=== PATIENT | male | born 1940 | race Caucasian/White ===

== ENCOUNTER 2017-06-19 19:07 | Emergency (ER) | payer MEDICARE ==
[~2017-06-19] VITALS: Ht 182.9 cm; Wt 90.7 kg
--- OUTSIDE RECORDS SUMMARY | ~2017-06-19 | XMS | Clinical Summary ---
Demographics + + + | Address | [address] | | | [place] [address] | + + + | Home Phone | | + + + | Preferred Language | Unknown | + + + | Marital Status | | + + + | Jehovah'S Witness Affiliation | Unknown | + + + | Race | White | + + + | Ethnic Group | Not or | + + + Author + + + | Organization | Unknown | + + + | Address | Unknown | + + + | Phone | Unavailable | + + + Support +------+ +---------+ + | Name | Relationship | Address | Phone | +------+ +---------+ + ECON | Unknown | | +------+ +---------+ + Care Team Providers + +------+ + | Care District Customs Director Name | Role | Phone | + +------+ + PP | Unavailable | + +------+ + Source Comments [facility] is fully live on both EpicCare Ambulatory and EpicCare InPatient.[facility] Allergies [...] | + + + + + | INFLUENZA VACCINE | | | | | (FLU SHOT) | 7 | | | + + + + + Results Not on filefrom Last 3 Months"
--- OUTSIDE RECORDS SUMMARY | ~2017-06-19 | XMS | Clinical Summary ---
Demographics + + + | Address | [address] | | | [place] [address] | + + + | Home Phone | | + + + | Preferred Language | Unknown | + + + | Marital Status | | + + + | Spiritism Affiliation | Unknown | + + + [...] Team Providers + +------+ + | Care Salesperson Furs Name | Role | Phone | + +------+ + PP | Unavailable | + +------+ + Source Comments [facility] is fully live on both EpicCare Ambulatory and EpicCare InPatient.[facility] Allergies Not on File Current Medications + [...]
[~2017-06-19 19:07] MED LIST: ALPRAZOLAM0.5 MG PO; AMBIEN CR12.5 MG PO; CVS FISH OIL 11 EAC1 PO; DULERA 100 MCG/13 GM INH; FEOSOL PO; MEN'S MULTI-VI1 EACH PO; NAPROSYN500 MG PO; PAROXETINE HCL20 MG PO; PERCOCET 5-3251 EACH PO; PRAMIPEXOLE D0.25 MG PO; RHINOCORT AQUA8.6 GM INH; TRAMADOL HCL50 MG PO; VITAMIN D2000 UNIT PO; ZYRTEC10 M3 PO
[2017-06-19] MEDS ORDERED: BUPROPION HCL100 MG NG (19:19)
[2017-06-19] MEDS ORDERED: MONTELUKAST SOD10 MG PO (19:20)
[2017-06-19] MEDS ORDERED: OMEPRAZOLE20 MG PO (19:20)
[2017-06-19] MEDS ORDERED: VITAMIN E1000 UNI2 PO (19:22)
[2017-06-19] MEDS ORDERED: CENTRUM SILVER1 EAC3 PO (19:22)
[2017-06-19] MEDS ORDERED: GUAIFENESIN AC473 ML PO (20:00)
[2017-06-19] MEDS ORDERED: LEVAQUIN500 MG PO (20:00)
[2017-06-19] MEDS ORDERED: PREDNISONE10 MG PO (20:00)
== END 2017-06-19 20:04 | disposition home or self-care (01) ==
LOC: ED 19:07
DX: J44.0 Chronic obstructive pulmonary disease with (acute) lower respiratory infection (principal); J20.9 Acute bronchitis, unspecified; Z79.899 Other long term (current) drug therapy
CPT/HCPCS: 71046; 99283

== ENCOUNTER 2018-02-03 20:36 | Inpatient (IN) | payer MEDICARE ==
[~2018-02-03] VITALS: Ht 182.9 cm; Wt 87.5 kg
--- OUTSIDE RECORDS SUMMARY | ~2018-02-03 | XMS | Encounter Summary ---
Demographics + + + | Address | [address] | | | [place] [address] | + + + | Home Phone | | + + + | Preferred Language | Unknown | + + + | Marital Status | | + + + | Gnosticism Affiliation | 1001 | + + + | Race | Unknown | + + + | Ethnic Group | Unknown | + + + Author + + + | Author | [facility] | | | and [place] | + + + | Organization | [facility] | | | and [place] | + + + | Address | Unknown | + + + | Phone | Unavailable | + + + Support + + + + + | Name | Relationship | Address | Phone | + + + + + | Nunu Meléndez | ECON | [address] | | | [place] | | [place] | | | | | [address] | | + + + + + | Iain Meléndez | ECON | [address] | | | | | [place] | | | | | [address] | | + + + + + Care Team Providers + +------+ + | Care Events Traffic Controller Name | Role | Phone | + +------+ + | Lucien Alonso MD | PCP | Unavailable | + +------+ + Encounter Details +--------+ + + + + | Date | Type | Department | Care Team | Description | +--------+ + + + + | 12/22/ | Orders Only | [facility] | Rick Guan, | Prostate cancer | | 2018 | | [address] | MD [address], | ([facility]) (Primary Dx) | | | | [address] [place] | [address] [place] | | | | | [place] [address] | [place] [address] | | | | | [phone] | [phone] | | | | | | | [...] + + + as of this encounter Functional Status + + + + | Functional Status | Response | Date of Assessment | + + + + | Are you deaf or do you have serious | No | 08/04/2014 | | difficulty hearing? | | | + + + + | Are you blind or do you have serious | No | 08/04/2014 | | difficulty seeing, even when wearing | | | | glasses? | | | + + + + | Do you have serious difficulty walking or | Yes | 08/04/2014 | | climbing stairs? (5 years old or older) | | | + + + + | Do you have difficulty dressing or bathing? | Yes | 08/04/2014 | | (5 years old or older) | | | + + + + | Because of a physical, mental, or emotional | No | 08/04/2014 | | condition, do you have difficulty doing | | | | errands alone such as visiting a doctor's | | | | office or shopping? [15 years old or | | | | older)] | | | + + + + + + + + | Cognitive Status | Response | Date of Assessment | + + + + | Because of a physical, mental, or emotional | No | 08/04/2014 | | condition, do you have serious difficulty | | | | concentrating, remembering, or making | | | | decisions? (5 years old or older) | | | + + + + as of this encounter Plan of Treatment +--------+---------+ + + + | Date | Type | Specialty | Care Team | Description | +--------+---------+ + + + | 12/21/ | Office | Urology | Rick Guan, | | | 2018 | Visit | | [address] , | | | | | | [place] | | | | | | [place] [address] | | | | | | [phone] | | | | | | | | +--------+---------+ + + + + +--------+ + + | Name | Priori | Associated Diagnoses | Order Schedule | | | ty | | | + +--------+ + + | PSA, Diagnostic | Routin | Prostate cancer | Expected: 12/07/2018 | | | e | (HCC) | (Approximate), | | | | | Expires: 03/03/2019 | + +--------+ + + | Comprehensive Metabolic Panel | Routin | Prostate cancer | Expected: 12/07/2018 | | | e | (HCC) | (Approximate), | | | | | Expires: 03/03/2019 | + +--------+ + + as of this encounter Visit Diagnoses + + | Diagnosis | + + | Prostate cancer (HCC) - Primary | + + | Malignant neoplasm of prostate | + +"
--- OUTSIDE RECORDS SUMMARY | ~2018-02-03 | XMS | Encounter Summary ---
Demographics + + + | Address | [address] | | | [place] [address] | + + + | Home Phone | | + + + | Preferred Language | Unknown | + + + | Marital Status | | + + + | Bahai Affiliation | 1001 | + + + | Race | Unknown | + + + | Ethnic Group | Unknown | + + + Author + + + | Author | [facility] | | | and [place] | + + + | Organization | [facility] | | | and [place] | + + + | Address | Unknown | + + + | Phone | Unavailable | + + + Support + + + + + | Name | Relationship | Address | Phone | + + + + + | Nunu Meléndez | ECON | [address] | | | K | | [place] | | | | | [address] | | + + + + + | Iain Meléndez | ECON | [address] | | | | | [place] | | | | | [address] | | + + + + + Care Team Providers + +------+ + | Care Pr Internship Name | Role | Phone | + [...] [place] | | | | | [place] [address] | [place] [address] | | | | | [phone] | [phone] | | | | | | | [...] , | | | | | | [address] [place] | | | | | | [place] [address] | | | | | | [phone] | | | | | | | [...] | + + | [facility] | + + + +---------+ + + [...]
--- OUTSIDE RECORDS SUMMARY | ~2018-02-03 | XMS | Encounter Summary ---
Demographics + + + | Address | [address] | | | [place] [address] | + + + | Home Phone | | + + + | Preferred Language | Unknown | + + + | Marital Status | | + + + | Mormonism Affiliation | 1001 | + + + | Race | Unknown | + + + | Ethnic Group | Unknown | + + + Author + + + | Author | [facility] | | | and [place] | + + + | Organization | [facility] | | | and [place] | + + + | Address | Unknown | + + + | Phone | Unavailable | + + + Support + + + + + | Name | Relationship | Address | Phone | + + + + + | Nunu Meléndez | ECON | [address] | | | [place] | | [place] | | | | | [address] | | + + + + + | Iain Meléndez | ECON | [address] | | | | | [place] | | | | | [address] | | + + + + + Care Team Providers + +------+ + | Care Message Broker Developer Name | Role | Phone | + [...] + + | 12/14/ | Office | [facility] | Rick Guan, | Prostate cancer | | 2018 | Visit | [address] | MD [address] [facility], | ([facility]) (Primary Dx); | | | | [address] [place] | [address] [place] | Stress incontinence; | | | | [place] [address] | [place] [address] | 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 If surgery is an option, youranmed health cannon providercan discuss it with you and explain its risks and benefits. Healing after prostate surgery Surgery on the prostate gland can cause incontinence. Most often, the incontinence is only for a short time. It clears up when healing is complete. Rarely, prostate surgery can result in permanent incontinence. Date Last Reviewed: 05/04/201619998143-[address] [employer] [place] [address]. All righ ts reserved. This information is [...] help prevent urine leakage. Date Last Reviewed: 02/01/201719990467-0420 [employer]. [address] [place] [address], [place] [address]. All righ ts reserved. This information is not intended as a substitute for professional medical care. Always follow your healthcare professional's instructions. in this encounter Progress Notes Rick Guan MD - 12/14/2017 1100 PDTFormatting of this note may be different from the original. Neil is a 77 y.o. male patient of Lucien Alonso MD being seen today for a [...] very well. His granddaughter was recently in [place]. He denies any difficulties with voiding except [...] active cystitis. - Negative for urothelial malignancy. JVR:[facility]:C2NR CT UROGRAM W WO CONTRAST 08/19/2017 11:16 [...] have not thoroughly proofread this note, and legal research analyst errors are likely to occur. CC: Lucien Alonso MD in this encounter Plan of Treatment +--------+---------+ + + + | Date | Type | Specialty | Care Team | Description | +--------+---------+ + + + | 12/21/ | Office | Urology | Rick Guan, | | | 2018 | Visit | | [address] [facility], | | | | | | [address] | | | | | | [place] [address] | | | | | | [phone] | | | | | | | [...] | + + + + + | [facility] | [address] | [place] | [phone] | | [facility] | | [address] | | | - LABORATORY | | | | + + + + + | [facility] | [address] | [place] | | | [facility] | | [address] | | | - LABORATORY | | [...] + + + + + | Specific [place], | 1.010 | 1.001 - 1.030 | [...]
--- OUTSIDE RECORDS SUMMARY | ~2018-02-03 | XMS | Clinical Summary ---
Demographics + + + | Address | [address] | | | [place] [address] | + + + | Home Phone | | + + + | Preferred Language | Unknown | + + + | Marital Status | | + + + | [employer] Affiliation | 1001 | + + + | Race | Unknown | + + + | Ethnic Group | Unknown | + + + Author + + + | Author | [facility] | | | and [place] | + + + | Organization | [facility] | | | and [place] | + + + | Address | Unknown | + + + | Phone | Unavailable | + + + Support + + + + + | Name | Relationship | Address | Phone | + + + + + | Nunu Solano | ECON | [address] | | | K | | [place] | | | | | [address] | | + + + + + | Iain Solano | ECON | [address] | | | | | [place] | | | | | [address] | | + + + + + Care Team Providers + +------+ + | Care Authorization Representative Name | Role | Phone | + +------+ + | Lucien Alonso MD | PP | Unavailable | + +------+ + Allergies + + + + + + | Active Allergy | Reactions | Severity | Noted | Comments | | | | | Date | | + + + + + + | Trazodone | Anxiety | Low | 05/30/19 | Urinary | | | | | 17 | incontinence | + + + + + + Current Medications + + +---------+---------+------+------+-------+ | Prescription | Sig. | Disp. | Refills | Star | End | Statu | | | | | | t | Date | s | | | | | | Date | | | + + +---------+---------+------+------+-------+ | pramipexole | Take 0.125 mg by | | 0 | /3 | | Activ | | (MIRAPEX) 0.25 mg | mouth 3 times daily | | | 0/20 | | e | | tablet | as needed. | | | 15 | | | + + +---------+---------+------+------+-------+ | zolpidem (AMBIEN) | Take 1 tablet by | 15 | 0 | 04/0 | | Activ | | 10 mg tablet | mouth nightly as | tablet | | 3/20 | | e | | | needed. | | | 15 | | | + + +---------+---------+------+------+-------+ | paroxetine (PAXIL) | Take 30 mg by mouth | | 0 | 03/3 | | Activ | | 30 MG tablet | every morning. | | | 0/20 | | e | | | | | | 15 | | | + + +---------+---------+------+------+-------+ | traMADol (ULTRAM) | Take 50 mg by mouth | | | | | Activ | | 50 mg tablet | every 6 hours as | | | | | e | | | needed for Pain. | | | | | | + + +---------+---------+------+------+-------+ | ALPRAZolam (XANAX) | Take 0.25 mg by | | 0 | 07/2 | | Activ | | 0.25 mg tablet | mouth nightly as | | | 1/20 | | e | | | needed. | | | 16 | | | + + +---------+---------+------+------+-------+ | Triamcinolone | 1 spray by Nasal | | | | | Activ | | Acetonide (NASACORT | route Daily. | | | | | e | | ALLERGY 24HR NA) | | | | | | | + + +---------+---------+------+------+-------+ | SSD 1 % cream | apply topically | | 0 | 01/1 | | Activ | | | daily as directed | | | 2/20 | | e | | | | | | 17 | | | + + +---------+---------+------+------+-------+ | omeprazole | take 1 capsule by | | 0 | 01/1 | | Activ | | (PRILOSEC) 20 mg | mouth once daily | | | 2/20 | | e | | capsule | | | | 17 | | | + + +---------+---------+------+------+-------+ | montelukast | take 1 tablet by | | 0 | 01/1 | | Activ | | (SINGULAIR) 10 mg | mouth once daily | | | 220 | | e | | tablet | | | | 17 | | | + + +---------+---------+------+------+-------+ | budesonide | 1 spray by Nasal | | | | | Activ | | (RHINOCORT ALLERGY) | route Daily. | | | | | e | | 32 mcg/nasal spray | | | | | | | | nasal spray | | | | | | | + + +---------+---------+------+------+-------+ | | Take 2 tablets by | | | | | Activ | | diphenhydrAMINE-acet | mouth nightly as | | | | | e | | aminophen (TYLENOL | needed. | | | | | | | PM EXTRA STRENGTH) | | | | | | | | 25-500 MG TABS | | | | | | | + + +---------+---------+------+------+-------+ | amoxicillin | take 4 capsules by | | 0 | 01/1 | | Activ | | (AMOXIL) 500 MG | mouth 1 hour prior | | | 11/20 | | e | | capsule | to dental | | | 17 | | | | | appointment | | | | | | + + +---------+---------+------+------+-------+ | buPROPion | Take 100 mg by mouth | | 0 | 02/0 | | Activ | | (WELLBUTRIN) 100 mg | 2 times daily. | | | 07/21 | | e | | tablet | | | | 17 | | | + + +---------+---------+------+------+-------+ | | Inhale 2 puffs into | 1 | 3 | 09/2 | | Activ | | mometasone-formotero | the lungs Twice | Inhaler | | 09/20 | | e | | l (DULERA) 200-5 | Daily. | | | 17 | | | | mcg/puff inhaler | | | | | | | + + +---------+---------+------+------+-------+ | | Take by mouth as | | | | | Activ | | Loratadine-Pseudoeph | needed. | | | | | e | | edrine (PX ALLERGY | | | | | | | | RELIEF D, LORATID, | | | | | | | | PO) | | | | | | | + + +---------+---------+------+------+-------+ | Xylitol POWD | by Does not apply | | | | | Activ | | | route. For sinus | | | | | e | | | problems | | | | | | + + +---------+---------+------+------+-------+ | predniSONE | Take 2 tablets by | 50 | 1 | 03/2 | | Activ | | (DELTASONE) 10 mg | mouth 2 times daily. | tablet | | 8/20 | | e | | tablet | Take 20 mg twice | | | 18 | | | | | daily for five days, | | | | | | | | then 20 mg daily | | | | | | | | for three days, then | | | | | | | | 10 mg daily for | | | | | | | | three days, then 10 | | | | | | | | mg alternate days | | | | | | | | for 6 days, then | | | | | | | | stop | | | | | | + + +---------+---------+------+------+-------+ | mirabegron | Take one 25 mg tab | 28 | 0 | 04/1 | | Activ | | (MYRBETRIQ) 25 mg ER | orally once daily to | tablet | | 3/20 | | e | | tablet | reduce bladder | | | 18 | | | | | pain. May increase | | | | | | | | to 50 mg daily if | | | | | | | | needed. | | | | | | + + +---------+---------+------+------+-------+ | tamsulosin | take 1 capsule by | 30 | 0 | 05/1 | | Activ | | (FLOMAX) 0.4 mg CAPS | mouth every evening | capsule | | 5/20 | | e | | | | | | 18 | | | + + +---------+---------+------+------+-------+ | amitriptyline | Take 10 mg by mouth | | 1 | 05/1 | | Activ | | (ELAVIL) 10 mg | Daily. | | | 5/20 | | e | | tablet | | | | 18 | | | + + +---------+---------+------+------+-------+ | | Take 1-2 tablets by | 25 | 0 | 05/2 | | Activ | | HYDROcodone-acetamin | mouth every 4 hours | tablet | | 1/20 | | e | | ophen (NORCO) 5-325 | as needed for Pain. | | | 18 | | | | mg per tablet | | | | | | | + + +---------+---------+------+------+-------+ | COMBIVENT RESPIMAT | Inhale 20-100 mcg | | 0 | 06/ | | Activ | | 20-100 MCG/ACT | into the lungs 4 | | | 6/ | | e | | inhaler | times daily. | | | 18 | | | + + +---------+---------+------+------+-------+ Active Problems + + + | Problem | Noted Date | + + + | PUD (peptic ulcer disease) | 06/19/2016 | + + + | Sleep apnea syndrome | 08/01/2014 | + + + | Asthma in adult | 08/01/2014 | + + + | Primary localized osteoarthrosis, lower leg | 06/05/2014 | + + + | Preventative health care | 07/27/2012 | + + + + + | Overview: PSA: Date Results 12/11/17 <0.014 12/04/16 <0.014 | | 01/18/16 <0.01 11/23/15 <0.014 11/09/14 <0.014 07/31/14 <0.014 | | 08/02/13 <0.014 07/22/12 <0.014 01/12/12 | | <0.014 06/16/11 <0.01 03/21/11 <0.01 12/17/10 <0.01 10/07/10 | | <0.01 08/02/10 <0.01 07/08/10 0.01 10/04/09 4.57 9% 03/09/09 | | 5.87 06/01/08 3.22 02/23/08 5.14 09/22/07 2.88 03/11/07 3.42 | | 01/02/06 2.28 12/26/04 2.84 12/20/03 2.21 12/26/02 2.3 12/28/01 | | 1.86Prostate biopsy: 02/19/2010 ODL Stage T2c, N0, M0 | | Adenocarcinoma of the prostate GS 3+3= 10/11 Left apex | | (18%), Left Lateral Mid (less than 1%), 3+4=11/10 Right Grady | | (17%), Right Lateral Mid (30%)Robotic-assisted laparoscopic | | prostatectomy 05/14/2010 Dr. Britton Shelby Clinical Stage T2c | | N0 M0, GS 3+4=7, bilateral high grade PINUrine Cytology 12/21/15 | | InCyte Negative (Acute inflammatory / cystitis pattern | | present)Bladder Lesion (Trigone) 09/16/17 Incyte Trigone lesion | | bladder, biopsy: - Mild chronic active cystitis. | | - Negative for urothelial malignancy.CT Urogram 08/19/17 | | [facility] 12/21/[address] [facility] [address] Abd/Pel w/wo 02/08/02 [facility] | | CT [facility] 11/25[facility] [facility] [address] | | Chest/Abd/Pel w 01/13/12 [facility] | | | | 03/11/07 3.42 | | 01/02/06 2.28 | | 12/26/04 2.84 | | 12/20/03 2.21 | | 12/26/02 2.3 | | 12/28/01 1.86 | | | |Prostate biopsy: 02/19/2010 ODL Stage T2c, N0, M0 Adenocarcinoma of the prostate | | GS 3+3= 10/11 Left apex (18%), Left Lateral Mid (less than 1%), | | 3+4=7 Right Grady (17%), Right Lateral Mid (30%) | | | |Robotic-assisted laparoscopic prostatectomy 05/14/2010 Dr. Britton Shelby Clinical Stage T2c N0 M0, GS 3+4=7, bilateral high grade PIN | | | |Urine Cytology 12/21/15 InCyte Negative (Acute inflammatory / cystitis pattern present) | | | |Bladder Lesion (Trigone) 09/16/17 Incyte Trigone lesion bladder, biopsy: | | - Mild chronic active cystitis. | | - Negative for urothelial malignancy. | | | |CT Urogram 08/19/17 [facility] | | 12/21/15 [facility] | | | |CT Abd/Pel w/wo 02/08/02 [facility] | | | |CT Abd w/o 08/08/10 [facility] | | | |CT Chest w/o 11/25/01 [facility] | | | |CT Chest/Abd/Pel w 01/13/12 [facility] | + + + + + | OTHER DYSPHAGIA | 07/10/2011 | + + + | TESTICULAR PAIN | | + + + | DEPRESSION | | + + + | INTRINSIC SPHINCTER DEFICIENCY | | + + + | SCROTAL RASH - DERMATITIS | | + + + | ADENOCARCINOMA, PROSTATE, HX OF | | + + + | RENAL CALCULUS, LEFT | | + + + | HYDRONEPHROSIS, LEFT | | + + + | HYPOGONADISM | | + + + | ERECTILE DYSFUNCTION, ORGANIC | | + + + | PROSTATIC HYPERPLASIA | | + + + | FAMILY HISTORY OF PROSTATE CANCER | | + + + | URETERAL CALCULUS, LEFT | | + + + | ELEVATED PROSTATE SPECIFIC ANTIGEN | | + + + | HOARSENESS | | + + + Encounters +--------+ + + + + | Date | Type | Specialty | Care Team | Description | +--------+ + + + + | 12/22/ | Orders Only | | Rick Guan, | Prostate cancer | | 2017 | | | MD | (HCC) (Primary Dx) | +--------+ + + + + | 12/17/ | Abstract | | Rick Guan, | Preventative health | | 2017 | | | MD | care | +--------+ + + + + | 12/14/ | Office | | Rick Guan, | Prostate cancer | | 2017 | Visit | | MD | ([facility]) (Primary Dx); | | | | | | Stress incontinence; | | | | | | 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); | | | | | | Pyuria | +--------+ + + + + from Last 3 Months Immunizations + + + + | Name | Dates Previously Given | Next Due | + + + + | PNEUMOCOCCAL | 05/04/2005 | | | POLYSACCHARIDE | | | | 23-VALENT (PPSV23) | | | + + + + | TDAP, (ADOL/ADULT) | 07/07/2017 | | + + + + Family History + + +------+ + | Medical History | Relation | Name | Comments | + + +------+ + | Alzheimer's disease | Father | | | + + +------+ + | Diabetes | Father | | | + + +------+ + | Prostate cancer | Father | | | + + +------+ + | Heart disease | Mother | | | + + +------+ + | Other (see comment) | Other | | family history of/atherosclerotic | | | | | cardiovascular disease | + + +------+ + | High cholesterol | Other | | family history of | + + +------+ + | High blood pressure | Other | | family history of | + + +------+ + | Diabetes | Other | | family history of | + + +------+ + | Depression | Other | | family history of | + + +------+ + | Prostate cancer | Other | | 3 uncles have had prostate cancer | + + +------+ + | Stroke | Other | | | + + +------+ + | Allergies | Other | | | + + +------+ + | Other (see comment) | Other | | Gallbladder disease | + + +------+ + | Rheum arthritis | Other | | | + + +------+ + + +------+ + + | Relation | Name | Status | Comments | + +------+ + + | Father | | | | + +------+ + + | Mother | | | | + +------+ + + | Other | | | | + +------+ + + | Other | | | | + +------+ + + | Other | | | | + +------+ + + | Other | | | | + +------+ + + | Other | | | | + +------+ + + | Other | | | | + +------+ + + | Other | | | | + +------+ + + | Other | | | | + +------+ + + | Other | | | | + +------+ + + | Other | | | | + +------+ + + Social History + +-------+ +--------+------+ [...] on file | | + + + Last Filed Vital Signs + + + + | Vital Sign | Reading | Time Taken | + + + + | Blood Pressure | 126/84 | 12/14/20176 PDT | + + + + | Pulse | 72 | 12/14/20176 PDT | + + + + | Temperature | 35.9 C (96.6 F) | 09/16/2017 1334 PDT | + + + + | Respiratory Rate | 16 | 12/14/2017 1106 PDT | + + + + | Oxygen Saturation | 93% | 09/16/2017 1600 PDT | + + + + | Inhaled Oxygen | - | - | | Concentration | | | + + + + | Weight | 90.5 kg (199 lb 8.3 | 12/14/2017 1106 PDT | | | oz) | | + + + + | Height | 182.9 cm (6' 0.01") | 09/30/2017 0946 PDT | + + + + | Body Mass Index | 27.05 | 12/14/2017 1106 PDT | + + + + Plan of Treatment +--------+---------+ + + + | Date | Type | Specialty | Care Team | Description | +--------+---------+ + + + | 12/21/ | Office | | Rick Guan, | | | 2019 | Visit | | [address] , | | | | | | [place] | | | | | | [place] [address] | | | | | | [phone] | | | | | | | | +--------+---------+ + + + + + + + + | Health Maintenance | Due Date | Last Done | Comments | + + + + + | Vaccine: Zoster (1 | | | | | of 2) | 2 | | | + + + + + | Vaccine: | | 05/04/2005 | | | Pneumococcal 65+ | 7 | | | | Low/Medium Risk (1 | | | | | of 2 - PCV13) | | | | + + + + + | Vaccine: Influenza | | | | | (#1) | 8 | | | + + + + + | Vaccine: | | 07/07/2017 | | | Dtap/Tdap/Td (2 - | 8 | | | | Td) | | | | + + + + + Implants + +------+--------+ +--------+--------+--------+ | Implanted | Type | Area | Manufacture | Device | Expira | Model | | | | | r | | tion | / | | | | | | Identi | Date | Serial | | | | | | fier | | / Lot | + +------+--------+ +--------+--------+--------+ | Adilson Bone Palacos-R/G 40gm - | | Left: | FREEDOM - | | 12/02/ | 00-111 | | [id number]: Qty: 2 on | | Knee | ZIMM | | 2017 | 3-140- | | 08/01/2014 by Lake Harris | | | | | | 01 / | | E, MD | | | | | | /[id number] | | | | | | | | 393 | + +------+--------+ +--------+--------+--------+ | Screw Hex 2.5x25mm - | | Left: | FREEDOM - | | 07/02/ | 42-509 | | [id number]: Qty: 1 on | | Knee | ZIMM | | 2024 | 9-025- | | 08/01/2014 by [place] Harris | | | | | | 25 / | | E, MD | | | | | | /[id number] | | | | | | | | 508 | + +------+--------+ +--------+--------+--------+ | Imp Asf Uc 10mm Ve L 7-12 Gh | | Left: | FREEDOM - | | 05/23/ | 42-512 | | - [id number]: Qty: 1 | | Knee | ZIMM | | 2019 | 2-006- | | on 08/01/2014 by Steven, | | | | | | 10 / | | Lake Seth MD | | | | | | /[id number] | | | | | | | | 193 | + +------+--------+ +--------+--------+--------+ | Imp Knee Ptela Polyeth 38mm - | | Left: | FREEDOM - | | 01/21/ | 42-540 | | [id number]: Qty: 1 | | Knee | ZIMM | | 2021 | 0-000- | | on 08/01/2014 by Steven, | | | | | | 38 / | | Lake Seth MD | | | | | | /[id number] | | | | | | | | 366 | + +------+--------+ +--------+--------+--------+ | Imp Knee Tib 5deg Lt [facility] - | | Left: | FREEDOM - | | 07/21/ | 42-532 | | [id number]: Qty: 1 on | | Knee | ZIMM | | 2024 | 0-083- | | 08/01/2014 by Lake Harris | | | | | | 01 / | | MD [place]inda | | | | | | /[id number] | | | | | | | | 732 | + +------+--------+ +--------+--------+--------+ | Imp Knee Fem Cr Cmt Ccr Sz10 | | Left: | CAP LEY - | | 03/23/ | 42-502 | | L - [id number]: Qty: | | Knee | CAP | | 2023 | 6-068- | | 1 on 08/01/2014 by Steven, | | | | | | 01 / | | Lake Seth MD | | | | | | /[id number] | | | | | | | | 869 | + +------+--------+ +--------+--------+--------+ | Imp Knee Tot Adilson Sadv - | | Left: | CAP LEY - | | | OK2A / | | [id number]: Qty: 1 on | | Knee | CAP | | | / | | 08/01/2014 by Lake Harris | | | | | | | | MD [place] | | | | | | | + +------+--------+ +--------+--------+--------+ | Imp Totjnt Upch Biom Oks - | | Left: | CAP LEY - | | | OKM-43 | | [id number]: Qty: 1 on | | Knee | CAP | | | 1491 / | | 08/01/2014 by [place] Harris | | | | | | / | | E, MD | | | | | | | + +------+--------+ +--------+--------+--------+ Procedures + +--------+ + + + | [...] section. | + +--------+ + + + from Last 3 Months Results Urinalysis, Microscopic Only, with Culture if [...] | + + + + + | [facility] | [address] | [place] | [phone] | | [facility] | | [address] | | | - LABORATORY | | | | + + + + + | [facility] | [address] | [place] | | | [facility] | | [address] | | | - LABORATORY | | [...] + + + + + | Specific [place], | 1.010 | 1.001 - 1.030 | [...] + + | Urine | + + External Lab: PSA (12/11/2017 1500) + +--------+ + + | Component | Value | Ref Range | Performed At | + +--------+ + + | PSA, External | <0.014 | 0 - 4 | EXTERNAL LAB | + +--------+ + + + + | Resulting Agency Comment | + + | [facility] | + + + +---------+ + + | Performing | Address | City/State/Zipcode | Phone Number | | Organization | | | | + +---------+ + + | EXTERNAL LAB | | | | + +---------+ + + from Last 3 Months Insurance + +--------+ +--------+-------+---------+ | Payer | Benefi | Subscriber | Type | Phone | Address | | | t Plan | ID | | | | | | / | | | | | | | Group | | | | | + +--------+ +--------+-------+---------+ | [employer] | [employer] | [id number] | Medica | | | | | HEALTH | | re | | | | | MDCR | | | | | + +--------+ +--------+-------+---------+ + +--------+ +--------+ + + | Guarantor Name | Accoun | Relation to | Date | Phone | Billing Address | | | t Type | Patient | of | | | | | | | | | | + +--------+ +--------+ + + | NEIL SOLANO | Person | Self [birth year] | Home: | [address] | | [place] | | 1941 | [phone] | [place] | | | lu | | | [phone] | + +--------+ +--------+ + +
--- OUTSIDE RECORDS SUMMARY | ~2018-02-03 | XMS | Clinical Summary ---
Demographics + + + | Address | [address] | | | [place] [address] | + + + | Home Phone | | + + + | Preferred Language | Unknown | + + + | Marital Status | | + + + | Anabaptism Affiliation | 1001 | + + + | Race | Unknown | + + + | Ethnic Group | Unknown | + + + Author + + + | Author | [facility] | | | and [place] | + + + | Organization | [facility] [place] | | | and [place] | + + + | Address | Unknown | + + + | Phone | Unavailable | + + + Support + + + + + | Name | Relationship | Address | Phone | + + + + + | Nunu Solano | ECON | [address] | | | K | | [place] | | | | | [address] | | + + + + + | Iain Solano | ECON | [address] | | | | | [place] | | | | | [address] | | + + + + + Care Team Providers + +------+ + | Care Engine Specialist Name | Role | Phone | + [...] Lateral Mid (less than 1%), 3+4=11/10 Right Clyde | | (17%), Right Lateral Mid (30%)Robotic-assisted [...] for urothelial malignancy.CT Urogram 08/19/17 | | [facility] 12/21/[address] [facility] [address] Abd/Pel w/wo 02/08/02 [facility] | | CT Abd w[facility] 11/25/[address] [facility] [address] | | Chest/Abd/Pel w 01/13/12 [facility] | | | | 03/11/07 3.42 | | 01/02/06 2.28 | | 12/26/04 2.84 | | 12/20/03 2.21 | | 12/26/02 2.3 | | 12/28/01 1.86 | | | |Prostate biopsy: 02/19/2010 ODL Stage T2c, N0, M0 Adenocarcinoma of the prostate | | GS 3+3= 10/11 Left apex (18%), Left Lateral Mid (less than 1%), | | 3+4=7 Right Clyde (17%), Right Lateral Mid (30%) | | [...] | | | |CT Abd/Pel w/wo 02/08/02 [facility] | | | |CT Abd w/o 08/08/10 [...] 2017 | Visit | | MD | ([facility]) (Primary Dx); | | | | | [...] | | | | | [place] [address] | | | | | | [phone] | | | | | | | [...] | | 12/02/ | 00-111 | | [id number]: Qty: 2 on | | Knee | ZIMM | | 2017 | 3-140- | | 08/01/2014 by [place] Harris | | | | | | 01 / | | E, MD | | | | | | /[id number] | | | | | | | | 393 | + +------+--------+ +--------+--------+--------+ | Screw Hex 2.5x25mm - | | Left: | FREEDOM - | | 07/02/ | 42-509 | | [id number]: Qty: 1 on | | Knee | ZIMM | | 2024 | 9-025- | | 08/01/2014 by [place] Harris | | | | | | 25 / | | E, MD | | | | | | /[id number] | | | | | | | | 508 | + +------+--------+ +--------+--------+--------+ | Imp Asf Uc 10mm Ve L 7-12 Gh | | Left: | FREEDOM - | | 05/23/ | 42-512 | | - [id number]: Qty: 1 | | Knee | ZIMM | | 2019 | 2-006- | | on 08/01/2014 by Steven, | | | | | | 10 / | | Lake Seth MD | | | | | | /[address] | | | | | | | | 193 | + +------+--------+ +--------+--------+--------+ | Imp Knee Ptela Polyeth 38mm - | | Left: | FREEDOM - | | 01/21/ | 42-540 | | [id number]: Qty: 1 | | Knee | ZIMM | | 2021 | 0-000- | | on 08/01/2014 by Steven, | | | | | | 38 / | | Lake Seth MD | | | | | | /[address] | | | | | | | | 366 | + +------+--------+ +--------+--------+--------+ | Imp Knee Tib 5deg Lt [facility] - | | Left: | FREEDOM - | | 07/21/ | 42-532 | | [id number]: Qty: 1 on | | Knee | ZIMM | | 2024 | 0-083- | | 08/01/2014 by [place] Harris | | | | | | 01 / | | MD Dorinda | | | | | | /[address] | | | | | | | | 732 | + +------+--------+ +--------+--------+--------+ | Imp Knee Fem Cr Cmt Ccr Sz10 | | Left: | CAP LEY - | | 03/23/ | 42-502 | | L - [id number]: Qty: | | Knee | CAP | | 2023 | 6-068- | | 1 on 08/01/2014 by Steven, | | | | | | 01 / | | Lake Seth MD | | | | | | /[address] | | | | | | | | 869 | + +------+--------+ +--------+--------+--------+ | Imp Knee Tot Adilson Sadv - | | Left: | CAP LEY - | | | OK2A / | | [id number]: Qty: 1 on | | Knee | CAP | | | / | | 08/01/2014 by [place] Harris | | | | | | | | MD Dorinda | | | | | | | + +------+--------+ +--------+--------+--------+ | Imp Totjnt Upch Biom Oks - | | Left: | CAP LEY - | | | OKM-43 | | [id number]: Qty: 1 on | | Knee | [...] + | [facility] | [address] | [place] | [phone] | | [facility] | | [address] | | | - LABORATORY | | | | + + + + + | [facility] | [address] | [place] | | | [facility] | | [address] | | | - LABORATORY | | [...] + + + + + | Specific [place], | 1.010 | 1.001 - 1.030 | [...] | + + | [facility] [place] | + + + +---------+ + + [...] | [facility] | [facility] | [id number] | Med[facility] | | | | | [...] | Self | [birth year] | Home: | [address] | | [place] carpio/[place] | | 1941 | [phone] | [place] | | | [place] | | | [phone] | [phone] | + +--------+ +--------+ + +
--- OUTSIDE RECORDS SUMMARY | ~2018-02-03 | XMS | Encounter Summary ---
Demographics + + + | Address | [address] | | | [place] [address] | + + + | Home Phone | | + + + | Preferred Language | Unknown | + + + | Marital Status | | + + + | Sabianism Affiliation | [id number] | + + + | Race | Unknown | + + + | Ethnic Group | Unknown | + + + Author + + + | Author | [facility] | | | and [place] | + + + | Organization | [facility] | | | and [place] | + + + | Address | Unknown | + + + | Phone | Unavailable | + + + Support + + + + + | Name | Relationship | Address | Phone | + + + + + | Nunu Meléndez | ECON | [address] | | | K | | [place] | | | | | [phone] | | + + + + + | Iain Meléndez | ECON | [address] | | | | | [place] | | | | | [address] | | + + + + + Care Team Providers + +------+ + | Care Space Physicist Name | Role | Phone | + [...] | MD [address], | ([facility]ERLY [facility]) (Primary Dx) | | | | [address] [place] | [address] [place] | | | | | [place] [address] | [place] [address] | | | | | [phone] | [phone] | | | | | | | [...] , | | | | | | [address] [place] | | | | | | [place] [address] | | | | | | [phone] | | | | | | | [...]
--- OUTSIDE RECORDS SUMMARY | ~2018-02-03 | XMS | Encounter Summary ---
Demographics + + + | Address | [address] | | | [place] [address] | + + + | Home Phone | | + + + | Preferred Language | Unknown | + + + | Marital Status | | + + + | Worship Affiliation | 1001 | + + + | Race | Unknown | + + + | Ethnic Group | Unknown | + + + Author + + + | Author | [facility] | | | and [place] | + + + | Organization | [facility] | | | and [place] | + + + | Address | Unknown | + + + | Phone | Unavailable | + + + Support + + + + + | Name | Relationship | Address | Phone | + + + + + | Nunu Meléndez | ECON | [address] | | | K | | [place] | | | | | [address] | | + + + + + | Iain Meléndez | ECON | [address] | | | | | [place] | | | | | [address] | | + + + + + Care Team Providers + +------+ + | Care Compliance Analyst Name | Role | Phone | + +------+ + | Lucien Aolnso MD | PCP | Unavailable | + [...] [place] | | | | | [place] [address] | [place] [address] | | | | | [phone] | [phone] | | | | | | | [...] | | | | | | [place] [address] | | | | | | [phone] | | | | | | | [...] | + + | [facility] [place] | + + + +---------+ + + [...]
--- OUTSIDE RECORDS SUMMARY | ~2018-02-03 | XMS | Encounter Summary ---
Demographics + + + | Address | [address] | | | [place] [address] | + + + | Home Phone | | + + + | Preferred Language | Unknown | + + + | Marital Status | | + + + | Zoroastrianism Affiliation | 1001 | + + + | Race | Unknown | + + + | Ethnic Group | Unknown | + + + Author + + + | Author | [facility] | | | and [place] | + + + | Organization | [facility] | | | and [place] | + + + | Address | Unknown | + + + | Phone | Unavailable | + + + Support + + + + + | Name | Relationship | Address | Phone | + + + + + | Nunu Meléndez | ECON | [address] | | | K | | [place] | | | | | [address] | | + + + + + | Iain Meléndez | ECON | [address] | | | | | [place] | | | | | [address] | | + + + + + Care Team Providers + +------+ + | Care Industrial Boilermaker Name | Role | Phone | + [...] MD [address], | ([facility]LY [facility]) (Primary Dx) | | | | [address] [place] | [address] [place] | | | | | [place] [address] | [place] [address] | | | | | [phone] | [phone] | | | | | | | [...] | | | | | | [address] | | | | | | [place] [address] | | | | | | [phone] | | | | | | | [...]
--- OUTSIDE RECORDS SUMMARY | ~2018-02-03 | XMS | Encounter Summary ---
Demographics + + + | Address | [address] | | | [place] [address] | + + + | Home Phone | | + + + | Preferred Language | Unknown | + + + | Marital Status | | + + + | Jew Affiliation | 1001 | + + + | Race | Unknown | + + + | Ethnic Group | Unknown | + + + Author + + + | Author | [facility] | | | and [place] | + + + | Organization | [facility] | | | and [place] | + + + | Address | Unknown | + + + | Phone | Unavailable | + + + Support + + + + + | Name | Relationship | Address | Phone | + + + + + | Nunu Meléndez | ECON | [address] | | | K | | [place] | | | | | [address] | | + + + + + | Iain Meléndez | ECON | [address] | | | | | [place] | | | | | [address] | | + + + + + Care Team Providers + +------+ + | Care Valve Machine Operator Name | Role | Phone [...] + + | 12/14/ | Office | [facility] | Rick Guan, | Prostate cancer | | 2018 | Visit | [address] | MD [address] [facility], | ([facility]) (Primary Dx); | | | | [address] [place] | [address] [place] | Stress incontinence; | | | | [place] [address] | [place] [address] | 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 If surgery is an option, [facility] provider[facility] discuss it with you and explain its risks and benefits. Healing after prostate surgery Surgery on the prostate gland can cause incontinence. Most often, the incontinence is only for a short time. It clears up when healing is complete. Rarely, prostate surgery can result in permanent incontinence. Date Last Reviewed: 05/04/201619994173-5348 [employer] [address] [place] [address]. All righ ts reserved. This information is [...] help prevent urine leakage. Date Last Reviewed: 02/01/201719990567-7264 [employer]. [address] [place] [address], [place] [address]. All righ ts reserved. This information is [...] very well. His granddaughter was recently in [place]. He denies any difficulties with voiding except [...] cystitis. - Negative for urothelial malignancy. JVR:[facility]:C2NR CT UROGRAM W WO CONTRAST 08/19/2017 11:16 [...] have not thoroughly proofread this note, and store protection specialist errors are likely to occur. CC: Lucien Alonso MD in this encounter Plan of Treatment +--------+---------+ + + + | Date | Type | Specialty | Care Team | Description | +--------+---------+ + + + | 12/21/ | Office | Urology | Rick Guan, | | | 2018 | Visit | | [address] [facility], | | | | | | [place] | | | | | | [place] [address] | | | | | | [phone] | | | | | | | [...] + | [facility] | [address] | [place] | [phone] | | [facility] | | [address] | | | - LABORATORY | | | | + + + + + | [facility] | [address] | [place] | | | [facility] | | [address] | | | - LABORATORY | | [...] + + + + + | Specific [place], | 1.010 | 1.001 - 1.030 | [...]
--- OUTSIDE RECORDS SUMMARY | ~2018-02-03 | XMS | Encounter Summary ---
Demographics + + + | Address | [address] | | | [place] [address] | + + + | Home Phone | | + + + | Preferred Language | Unknown | + + + | Marital Status | | + + + | Denominational Affiliation | 1001 | + + + | Race | Unknown | + + + | Ethnic Group | Unknown | + + + Author + + + | Author | [facility] | | | and [place] | + + + | Organization | [facility] | | | and [place] | + + + | Address | Unknown | + + + | Phone | Unavailable | + + + Support + + + + + | Name | Relationship | Address | Phone | + + + + + | Nunu Meléndez | ECON | [address] | | | K | | [place] | | | | | [address] | | + + + + + | Iain Meléndez | ECON | [address] | | | | | [place] | | | | | [address] | | + + + + + Care Team Providers + +------+ + | Care Assistant Portfolio Manager Name | Role | Phone | [...] + + | 12/14/ | Office | [facility] | Rick Guan, | Prostate cancer | | 2018 | Visit | [address] | MD [address] [facility], | ([facility]) (Primary Dx); | | | | [address] [place] | [address] [place] | Stress incontinence; | | | | [place] [address] | [place] [address] | Intrinsic sphincter | | | | 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 If surgery is an option, [facility] you and explain its risks and benefits. Healing after prostate surgery Surgery on the prostate gland can cause incontinence. Most often, the incontinence is only for a short time. It clears up when healing is complete. Rarely, prostate surgery can result in permanent incontinence. Date Last Reviewed: 05/04/201619999870-[address] [employer] [place] [address]. All righ ts reserved. This information is [...] help prevent urine leakage. Date Last Reviewed: 02/01/201719991072-2690 [employer]. [address] [place] [address], [place] [address]. All righ ts reserved. This information is not intended as a substitute for professional medical care. Always follow your healthcare professional's instructions. in this encounter Progress Notes Rick Guan MD - 12/14/2017 1100 PDTFormatting of this note may be different from the original. Niel is a 77 y.o. male patient of [...] very well. His granddaughter was recently in [place]. He denies any difficulties with voiding except [...] active cystitis. - Negative for urothelial malignancy. JVR:[facility]:C2NR CT UROGRAM W WO CONTRAST 08/19/2017 11:16 [...] have not thoroughly proofread this note, and shuttle repairer errors are likely to occur. CC: Lucien Alonso MD in this encounter Plan of Treatment +--------+---------+ + + + | Date | Type | Specialty | Care Team | Description | +--------+---------+ + + + | 12/21/ | Office | Urology | Rick Guan, | | | 2018 | Visit | | [address] [facility], | | | | | | [address] | | | | | | [place] [address] | | | | | | [phone] | | | | | | | [...] + | [facility] | [address] | [place] | [phone] | | [facility] | | [address] | | | - LABORATORY | | | | + + + + + | [facility] | [address] | [place] [address] | | | [facility] | | [address] | | | - LABORATORY | | [...] + + + + + | Specific [place], | 1.010 | 1.001 - 1.030 | [...]
--- OUTSIDE RECORDS SUMMARY | ~2018-02-03 | XMS | Clinical Summary ---
Demographics + + + | Address | [address] | | | [place] [address] | + + + | Home Phone [...] Team Providers + +------+ + | Care Cyber Intel Planner Name | Role | Phone | + +------+ + PP | Unavailable | + +------+ + Source Comments ONOFRE is fully live on both [facility] and [facility] InPatient.[facility] Allergies Not on File Current Medications + [...] | | | | (FLU SHOT) | 8 | | | + + [...] | PPO | [phone]- | [address] [address] [place] | | SHIELD | E BCBS | x | | 0838 | [place], [place] | | | | | | | [address] | + +--------+ +------+ + + + +--------+ +--------+ + + | Guarantor Name | Accoun | Relation to | Date | Phone | Billing Address | | | t Type | Patient | of | | | | | | | | | | + +--------+ +--------+ + + | RUPERTO SOLANO | Person | Self | [birth year] | Home: | [address] | | | [place] | | 1941 | [phone] | [place] | | | [place] | | | [phone] | [phone] | + +--------+ +--------+ + +"
--- OUTSIDE RECORDS SUMMARY | ~2018-02-03 | XMS | Clinical Summary ---
Demographics + + + | Address | [address] | | | [place] [address] | + + + | Home Phone | | + + + | Preferred Language | Unknown | + + + | Marital Status | | + + + | Restorationist Affiliation | Unknown | + + + [...] Team Providers + +------+ + | Care Yeast Tender Name | Role | Phone | + +------+ + PP | Unavailable | + +------+ + Source Comments ONOFRE is fully live on both [facility] and [facility] InPatient.[facility] Allergies Not on File Current [...] | PPO | [phone]- | [address] [address] [place] | | SHIELD | E BCBS | x | | [address] | [place], [place] | | | | | | | [address] | + +--------+ +------+ + + + +--------+ +--------+ + + | Guarantor Name | Accoun | Relation to | Date | Phone | Billing Address | | | t Type | Patient | of | | | | | | | | | | + +--------+ +--------+ + + | RUPERTO SOLANO | Person | Self | [birth year] | Home: | [address] | | | [place] | | 1941 | [phone] | [place] | | | [place] | | | [phone] | [phone] | + +--------+ +--------+ + +"
--- OUTSIDE RECORDS SUMMARY | ~2018-02-03 | XMS | Clinical Summary ---
Demographics + + + | Address | [address] | | | [place] [address] | + + + | Home Phone | | + + + | Preferred Language | Unknown | + + + | Marital Status | | + + + | Latter-Day Affiliation | 1001 | + + + | Race | Unknown | + + + | Ethnic Group | Unknown | + + + Author + + + | Author | [facility] | | | and [place] | + + + | Organization | [facility] | | | and [place] | + + + | Address | Unknown | + + + | Phone | Unavailable | + + + Support + + + + + | Name | Relationship | Address | Phone | + + + + + | Nunu Solano | ECON | [address] | | | K | | [place] | | | | | [address] | | + + + + + | Iain Solano | ECON | [address] | | | | | [place] | | | | | [address] | | + + + + + Care Team Providers + +------+ + | Care Associate Agent Insurance Sales Name | Role | Phone | + [...] Lateral Mid (less than 1%), 3+4=11/10 Right Decker | | (17%), Right Lateral Mid (30%)Robotic-assisted [...] for urothelial malignancy.CT Urogram 08/19/17 | | [facility] 12/21/[address] [facility] [address] Abd/Pel w/wo 02/08/02 [facility] | | CT Abd w[facility]o 11/25/[address] [facility] [address] | | Chest/Abd/Pel w 01/13/12 [facility] | | | | 03/11/07 3.42 | | 01/02/06 2.28 | | 12/26/04 2.84 | | 12/20/03 2.21 | | 12/26/02 2.3 | | 12/28/01 1.86 | | | |Prostate biopsy: 02/19/2010 ODL Stage T2c, N0, M0 Adenocarcinoma of the prostate | | GS 3+3= 10/11 Left apex (18%), Left Lateral Mid (less than 1%), | | 3+4=7 Right Decker (17%), Right Lateral Mid (30%) | | [...] | | |CT Abd/Pel w/wo 02/08/02 [facility] | | | |CT Abd w/o 08/08/10 [...] Visit | | MD | ([facility]) (Primary Dx); | | | | | [...] | | | | | [place] [address] | | | | | | [phone] | | | | | | | [...] | | 12/02/ | 00-111 | | [id number]: Qty: 2 on | | Knee | ZIMM | | 2017 | 3-140- | | 08/01/2014 by [place] Harris | | | | | | 01 / | | E, MD | | | | | | /[id number] | | | | | | | | 393 | + +------+--------+ +--------+--------+--------+ | Screw Hex 2.5x25mm - | | Left: | FREEDOM - | | 07/02/ | 42-509 | | [id number]: Qty: 1 on | | Knee | ZIMM | | 2024 | 9-025- | | 08/01/2014 by [place] | | | | | | 25 / | | E, MD | | | | | | /[id number] | | | | | | | | 508 | + +------+--------+ +--------+--------+--------+ | Imp Asf Uc 10mm Ve L 7-12 Gh | | Left: | FREEDOM - | | 05/23/ | 42-512 | | - [id number]: Qty: 1 | | Knee | ZIMM | | 2019 | 2-006- | | on 08/01/2014 by Steven, | | | | | | 10 / | | [place] Seth MD | | | | | | /[id number] | | | | | | | | 193 | + +------+--------+ +--------+--------+--------+ | Imp Knee Ptela Polyeth 38mm - | | Left: | FREEDOM - | | 01/21/ | 42-540 | | [id number]: Qty: 1 | | Knee | ZIMM | | 2021 | 0-000- | | on 08/01/2014 by Steven, | | | | | | 38 / | | Lake Seth MD | | | | | | /[id number] | | | | | | | | 366 | + +------+--------+ +--------+--------+--------+ | Imp Knee Tib 5deg Lt [facility] - | | Left: | FREEDOM - | | 07/21/ | 42-532 | | [id number]: Qty: 1 on | | Knee | ZIMM | | 2024 | 0-083- | | 08/01/2014 by [place] Harris | | | | | | 01 / | | MD Dorinda | | | | | | /[id number] | | | | | | | | 732 | + +------+--------+ +--------+--------+--------+ | Imp Knee Fem Cr Cmt Ccr Sz10 | | Left: | CAP LEY - | | 03/23/ | 42-502 | | L - [id number]: Qty: | | Knee | CAP | | 2023 | 6-068- | | 1 on 08/01/2014 by Steven, | | | | | | 01 / | | Lake Seth MD | | | | | | /[id number] | | | | | | | | 869 | + +------+--------+ +--------+--------+--------+ | Imp Knee Tot Adilson Sadv - | | Left: | CAP LEY - | | | OK2A / | | [id number]: Qty: 1 on | | Knee | CAP | | | / | | 08/01/2014 by [place] Harris | | | | | | | | MD Dorinda | | | | | | | + +------+--------+ +--------+--------+--------+ | Imp Totjnt Upch Biom Oks - | | Left: | CAP LEY - | | | OKM-43 | | [id number]: Qty: 1 on | | Knee | [...] + | [facility] | [address] | [place] | [phone] | | [facility] | | [address] | | | - LABORATORY | | | | + + + + + | [facility] | [address] | [place] | | | [facility] | | [address] | | | - LABORATORY | | [...] + + + + + | Specific [place], | 1.010 | 1.001 - 1.030 | [...] | + + | [facility] [place] | + + + +---------+ + + [...] | [employer] | [facility] | [id number] | Medica | | | | | [...] | Self | [birth year] | Home: | [address] | | [place] | | 1941 | [phone] | [place] | | | [place] | | | [phone] | [phone] | + +--------+ +--------+ + +
--- OUTSIDE RECORDS SUMMARY | ~2018-02-03 | XMS | Clinical Summary ---
Demographics + + + | Address | [address] | | | [place] [address] | + + + | Home Phone | | + + + | Preferred Language | Unknown | + + + | Marital Status | | + + + | Pentecostal Affiliation | Unknown | + + + [...] Providers + +------+ + | Care Senior Clinical Consultant Name | Role | Phone | + +------+ + PP | Unavailable | + +------+ + Source Comments ONOFRE is fully live on both [facility] Ambulatory and [facility] InPatient.[facility] Allergies Not on File Current Medications + [...] | PPO | +1--253- | [address] [address] [place] | | SHIELD | E BCBS | x | | 0838 | [place], [place] | | | | | | | [address] | + +--------+ +------+ + + + +--------+ +--------+ + + | Guarantor Name | Accoun | Relation to | Date | Phone | Billing Address | | | t Type | Patient | of | | | | | | | | | | + +--------+ +--------+ + + | RUPERTO SOLANO | Person | Self | [birth year] | Home: | [address] | | | [place] | | 1941 | [phone] | [place] | | | [place] | | | [address] | [phone] | + +--------+ +--------+ + +"
--- OUTSIDE RECORDS SUMMARY | ~2018-02-03 | XMS | Encounter Summary ---
Demographics + + + | Address | [address] | | | [place] [address] | + + + | Home Phone | | + + + | Preferred Language | Unknown | + + + | Marital Status | | + + + | Muslim Affiliation | 1001 | + + + | Race | Unknown | + + + | Ethnic Group | Unknown | + + + Author + + + | Author | [facility] | | | and [place] | + + + | Organization | [facility] | | | and [place] | + + + | Address | Unknown | + + + | Phone | Unavailable | + + + Support + + + + + | Name | Relationship | Address | Phone | + + + + + | Nunu Meléndez | ECON | [address] | | | K | | [place] | | | | | [address] | | + + + + + | Iain Meléndez | ECON | [address] | | | | | [place] | | | | | [address] | | + + + + + Care Team Providers + +------+ + | Care Nut Steamer Name | Role | Phone | + [...] [place] | | | | | [place] [address] | [place] [address] | | | | | [phone] | [phone] | | | | | | | [...] | | | | | [place] [address] | | | | | | [phone] | | | | | | | [...] | + + | [facility] [place] | + + + +---------+ + + [...]
[~2018-02-03 20:36] MED LIST changes: +BUPROPION HCL100 MG NG; +CENTRUM SILVER1 EAC3 PO; +GUAIFENESIN AC473 ML PO; +LEVAQUIN500 MG PO; +MONTELUKAST SOD10 MG PO; +OMEPRAZOLE20 MG PO; +PREDNISONE10 MG PO; +VITAMIN E1000 UNI2 PO
[2018-02-03] MEDS ORDERED: TRAZODONE HCL100 MG PO (21:00)
[2018-02-03] MEDS ORDERED: ZOLPIDEM TARTRA10 MG PO (21:00)
[2018-02-03] MEDS ORDERED: AMITRIPTYLINE H10 MG PO (21:00)
[2018-02-03] MEDS ORDERED: NORCO 5-325 TA1 EACH (21:00)
[2018-02-03] MEDS ORDERED: COMBIVENT RESPIM4 GM INH (21:00)
[2018-02-03] MEDS ORDERED: LEVOFLOXACIN500 MG (21:00)
[2018-02-03] MEDS ORDERED: PRAMIPEXOLE D0.25 MG PO (21:00)
[2018-02-03] MEDS ORDERED: BUPROPION HCL150 M2 PO (21:00)
[2018-02-03] MEDS ORDERED: BUPROPION HCL100 M1 (21:00)
[2018-02-03] MEDS ORDERED: DULERA 200 MCG/13 GM (21:00)
[2018-02-03] MEDS ORDERED: MOMETASONE FURO45 G1 (21:00)
[2018-02-03] MEDS ORDERED: PREDNISONE20 MG PO (21:00)
[2018-02-03] MEDS ORDERED: PAROXETINE HCL30 MG (21:00)
[2018-02-03] MEDS ORDERED: BACTRIM DS TAB1 EACH (21:01)
[2018-02-04] MEDS ORDERED: TRELEGY ELLIPT1 EACH INH (11:51)
[2018-02-04] MEDS ORDERED: PRAMIPEXOLE D0.25 MG PO (11:53)
[2018-02-04] MEDS ORDERED: VANQUISH CAPLE1 EACH PO (11:58)
[2018-02-04] MEDS ORDERED: TOBRAMYCIN-DEXAM5 ML OU (12:00)
[2018-02-07] MEDS ORDERED: DOXYCYCLINE HY100 MG PO (11:19)
[2018-02-07] MEDS ORDERED: TAMSULOSIN HCL0.4 MG PO (11:19)
[2018-02-07] MEDS ORDERED: MIRALAX17 GM PO (11:25)
== END 2018-02-07 13:03 | disposition home or self-care (01) | DRG 193 ==
LOC: ED 20:36 → MS 20:37 → CCU 02-04 02:50 → MS 02-05 12:00
PROVIDERS: ADMIT Student in an Organized Health Care Education/Training Program
DX: J13 Pneumonia due to Streptococcus pneumoniae (principal); A41.52 Sepsis due to Pseudomonas; R65.21 Severe sepsis with septic shock; R33.9 Retention of urine, unspecified; J44.9 Chronic obstructive pulmonary disease, unspecified; G47.00 Insomnia, unspecified; Z85.46 Personal history of malignant neoplasm of prostate; F39 Unspecified mood [affective] disorder
CPT/HCPCS: 36415; 51702; 71045; 80048; 80053; 80202; 81001; 83605; 83735; 85025; 87040; 87070; 87077; 87186; 87205; 87502; 93306; 94640; 94667; 94668; 94762; 96365; 96375; 97116; 97162; 99284; G8978; G8979; G8980; J0456; J0692; J0696; J1650; J2405; J3370; J3475; J7030; J7050; J7120

== ENCOUNTER 2018-02-07 16:49 | Emergency (ER) | payer MEDICARE ==
[~2018-02-07] VITALS: Ht 182.9 cm; Wt 87.5 kg
--- OUTSIDE RECORDS SUMMARY | ~2018-02-07 | XMS | Encounter Summary ---
Demographics + + + | Address | [address] | | | [place] [address] | + + + | Home Phone | | + + + | Preferred Language | Unknown | + + + | Marital Status | | + + + | Yazdanism Affiliation | 1001 | + + + | Race | Unknown | + + + | Ethnic Group | Unknown | + + + Author + + + | Author | [facility] | | | and [place] | + + + | Organization | [facility] | | | and [place] | + + + | Address | Unknown | + + + | Phone | Unavailable | + + + Support + + + + + | Name | Relationship | Address | Phone | + + + + + | Nunu Meléndez | ECON | [address] | | | K | | [place] | | | | | [address] | | + + + + + | Iain Meléndez | ECON | [address] | | | | | [place] | | | | | [address] | | + + + + + Care Team Providers + +------+ + | Care Industrial Engineering Technologist Name | Role | Phone | + +------+ + | Lucien Alonso MD | PCP | Unavailable | + +------+ + Encounter Details +--------+ + + + + | Date | Type | Department | Care Team | Description | +--------+ + + + + | 12/17/ | Abstract | [facility] | Rick Guan, | Preventative health | | 2018 | | [address] | MD [address], | care | | | | [address] [place] | [address] [place] | | | | | [place] [address] | [place] [address] | | | | | [phone] | [phone] | | | | | | | [...] Description | +--------+---------+ + + + | 02/09/ | Office | Urology | Rick Guan, | | | 2017 | Visit | | MD Mark LIU, | | | | | | [address] [place] | | | | | | [place] [address] | | | | | | [phone] | | | | | | | | +--------+---------+ + + + | 12/21/ | Office | Urology | Rick Guan, | | | 2018 | Visit | | MD Mark [place], | | | | | | [address] [place] | | | | | | [place] [address] | | | | | | [phone] | | | | | | | | +--------+---------+ + + + as of this encounter Procedures + +--------+ + + + | Procedure Name | Priori | Date/Time | Associated Diagnosis | Comments | | | ty | | | | + +--------+ + + + | EXTERNAL LAB: PSA | Routin | 12/11/2017 | | Results for this | | | e | 1500 PDT | | procedure are in the | | | | | | results section. | + +--------+ + + + in this encounter Results External Lab: PSA (12/11/2017 1500) + +--------+ + + | Component | Value | Ref Range | Performed At | + +--------+ + + | PSA, External | <0.014 | 0 - 4 | EXTERNAL LAB | + +--------+ + + + + | Resulting Agency Comment | + + | [facility] | + + + +---------+ + + | Performing | Address | City/State/Zipcode | Phone Number | | Organization | | | | + +---------+ + + | EXTERNAL LAB | | | | + +---------+ + + in this encounter Visit Diagnoses + + | Diagnosis | + + | Preventative health care | + + | Routine general medical examination at a health care facility | + +"
--- OUTSIDE RECORDS SUMMARY | ~2018-02-07 | XMS | Encounter Summary ---
Demographics + + + | Address | [address] | | | [place] [address] | + + + | Home Phone | | + + + | Preferred Language | Unknown | + + + | Marital Status | | + + + | Judaism Affiliation | 1001 | + + + | Race | Unknown | + + + | Ethnic Group | Unknown | + + + Author + + + | Author | [facility] | | | and [place] | + + + | Organization | [facility] | | | and [place] | + + + | Address | Unknown | + + + | Phone | Unavailable | + + + Support + + + + + | Name | Relationship | Address | Phone | + + + + + | Nunu Meléndez | ECON | [address] | | | [place] | | [place] | | | | | [address] | | + + + + + | Iain Meléndez | ECON | [address] | | | | | [place] | | | | | [address] | | + + + + + Care Team Providers + +------+ + | Care Auditor Appraiser Name | Role | Phone | + +------+ + | Lucien Alonso MD | PCP | Unavailable | + +------+ + Reason for Visit + + + | Reason | Comments | + + + | Prostate Cancer | | + + + | Hematuria | | + + + Encounter Details +--------+---------+ + + + | Date | Type | Department | Care Team | Description | +--------+---------+ + + + | 12/14/ | Office | [facility] | Rick Guan, | Prostate cancer | | 2018 | Visit | [address] | MD [address] [facility], | ([facility]) (Primary Dx); | | | | [address] [place] | [address] | Stress incontinence; | | | | [place] [address] | [place] [address] | Intrinsic sphincter | | | | [phone] | [phone] | deficiency (ISD); | | | | | | Pyuria | +--------+---------+ + + + Social History + +-------+ [...] + + + as of this encounter Last Filed Vital Signs + + + + | Vital Sign | Reading | Time Taken | + + + + | Blood Pressure | 126/84 | 12/14/20171105 PDT | + + + + | Pulse | 72 | 12/14/20171105 PDT | + + + + | Temperature | - | - | + + + + | Respiratory Rate | 16 | 12/14/20171105 PDT | + + + + | Oxygen Saturation | - | - | + + + + | Inhaled Oxygen | - | - | | Concentration | | | + + + + | Weight | 90.5 kg (199 lb 8.3 | 12/14/20171105 PDT | | | oz) | | + + + + | Height | - | - | + + + + | Body Mass Index | 27.05 | 12/14/20171105 PDT | + + + + in this encounter Functional Status + + + [...] + + + as of this encounter Instructions Patient Instructions - Rick Guan MD - 12/14/20172038 PDTFormatting of this note may be different from the original. Treating Urinary Incontinence in Men You can t always control the release of urine. You may leak urine. Or you may not be able to hold your urine until you can get to a bathroom. This is called urinary incontinence. Th e problem can be managed. Talk to your doctor about your treatment options. Taking medicines Prescription medicine may help you. They may help: The sphincter to work better (this is the muscle that closes to keep urine from leaking out of the bladder) Stop the bladder from ciro too often to push urine out The bladder muscles contract with more force Relax the sphincter muscle and allow urine to flow more freely Making changes to your routine Certain changes in your daily routine may help. These include: Avoiding caffeine and alcohol Using timed voiding (this is following a schedule for drinking fluids and urinating) Doing Kegel exercises daily (these exercises involve tightening the muscles in your sphi ncter and around your bladder to help strengthen them) Using a catheter A catheter is a narrow tube that is inserted through the urethra into the bladder. It drain s urine. A condom catheter covers the penis. It channels urine into a collection bag. It is worn most of the time. Intermittent catheterization means inserting a catheter to drain the bladder, then removing it. This is done on a regular schedule. Special therapies Biofeedback. This technique is taught by a nurse or physical therapist. During the thera py, a small sensor is placed inside or just outside the anus. Another sensor is placed on yo ur stomach. these sensors read signals from the pelvic floor muscles. When you contract or r elax your muscles, these signals are show as images on a computer screen. Using the images, you can learn to relax or contract certain muscles. This can help you better control these m uscles. And, it can help you learn pelvic floor muscle exercises. Electrical stimulation. This is a painless therapy that uses a tiny amount of electrical current. It helps strengthenvery weak or damaged pelvic floor muscles. The electric curre nt is sent through the muscles of the pelvic floor and bladder. This causes the muscles to c ontract. In time, this helps make the muscles stronger. Stimulator implants. This technique is used to treat urge incontinence. A small device i s implanted under the skin near the stomach. This device gives off mild electrical signals. These block extra signals that are being sent to the bladder muscles. This helps the bladder work more normally. Having surgery If other options don t work, surgery may be recommended. If [facility] is an option, [facility] you and explain its risks and benefits. Healing after prostate surgery Surgery on the prostate gland can cause incontinence. Most often, the incontinence is only for a short time. It clears up when healing is complete. Rarely, prostate surgery can result in permanent incontinence. Date Last Reviewed: 05/04/201619995417-[address] [employer] [place] [id number]. All righ ts reserved. This information is not intended as a substitute for professional medical care. Always follow your healthcare professional's instructions. Kegel Exercises Kegel exercises don t need special clothing or equipment. They re easy to learn and sim ple to do. And if you do them right, no one can tell you re doing them, so they can be don e almost anywhere. Your healthcare provider, nurse, or physical therapist can answer any que stions you have and help you get started. A weak pelvic floor The pelvic floor muscles may weaken due to aging, and vaginal childbirth, injury, surgery, chronic cough, or lack of exercise. If the pelvic floor is weak, your bladder and other pelvic organs may sag out of place. The urethra may also open too easily and allow uri ne to leak out. Kegel exercises can help you strengthen your pelvic floor muscles. Then they can better support the pelvic organs and control urine flow. How Kegel exercises are done Try each of the Kegel exercises described below. When you re doing them, try not to move your leg, buttock, or stomach muscles: Contract as if you were stopping your urine stream. But do it when you re not urinatin g. Tighten your rectum as if trying not to pass gas. Contract your anus, but don t move y our buttocks. You may place a finger or 2 in the vagina and squeeze your finger with your vagina to le arn which muscles to tighten. Try to hold each Kegel for a slow count to 5. You probably won t be able to hold them for that long at first. But keep practicing. It will get easier as your pelvic floor gets stron karen. Eventually, special weights that you place in your vagina may be recommended to help ma ke your Kegels even more effective. Visit your healthcare provider if you have difficulties doing Kegel exercises. Helpful hints Here are some tips to follow: Do your Kegels as often as you can. The more you do them, the faster you ll feel the r esults. Pick an activity you do often as a reminder. For instance, do your Kegels every time you sit down. Tighten your pelvic floor before you sneeze, get up from a chair, cough, laugh, or lift. This protects your pelvic floor from injury and can help prevent urine leakage. Date Last Reviewed: 02/01/201719995338-5489 [employer]. [address] [place] [address], [place] [address]. All righ ts reserved. This information is not intended as a substitute for professional medical care. Always follow your healthcare professional's instructions. in this encounter Progress Notes Rick Guan MD - 12/14/2017 1100 PDTFormatting of this note may be different from the original. Neil is a 77 y.o. male patient of Lucine Alonso MD being seen today for a fol low up for prostate cancer and hematuria. Yuval has a history of clinical stage T2c, N0, M0 adenocarcinoma of the prostate. He underw ent robotic-assisted laparoscopic prostatectomy on 05/14/[address] Britton Shelby. He underwent left ESWL on 09/04/2010 for a 10 x 7 mm stone at the left ureteropelvic junction . He was noted to have microhematuria on 12/06/2015. A cystoscopic examination on 02/14/2016 d emonstrated no bladder tumors, and no suggestion of intrinsic sphincter deficiency. CT urog angelita 12/21/2015 demonstrated normal appearing upper urinary tracts, with very tiny punctate re nal stones and simple renal cysts. 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 A small erythematous lesion of the trigone was biopsied with pathology only demonstrated cystitis, and no malignancy. R etrograde pyelography demonstrated mild narrowing of a short segment of the distal and proxi mal ureter, but ureteroscopy was negative, without any sign of tumor or mucosal lesion. Today, 12/14/2017, Yuval reports that he continues to do very well. His granddaughter was recently in [place]. He denies any difficulties with voiding except that he still has stress urinary incontinenc e. He will go through 3-4 pads per day. Occasionally, he will be completely dry at night t desmond. He denies any dysuria or hematuria. He states that he last passed a "tiny speck" of blood about 1-2 months ago after performing strenuous physical labor. He is not experiencing any abdominal pain. He denies any groin or flank pain. He denies any recent cold or flulike illness. He denies any nausea or vomiting. He denies any angina. He denies any renal colic. He denies passing any kidney stones. He reports had some change in stool size and shape, but denies hematochezia or melena. He also has history of stress "rectal muscle pain," and Crohn's disease. 10 point review of systems is positive for episode of fever and chills which have resolved, headache, dizziness spells, numbness and tingling, heat intolerance, fatigue, change in sto ol size and shape, pain with swallowing at times, skin rash in winter time, neck pain, joint pain, back pain, wheezing, cough, shortness of breath, prior blood transfusion in 1994, oth erwise negative. He does not smoke. I spent in excess of 15 minutes with Neil today, over 50% of this time spent in counseli ng regarding hematuria and prostate cancer and discussion of treatment options for his urina ry incontinence. His reminds me that I performed sling surgery for her 20 years ago which is still allo wing her to maintain perfect control. Past Medical History He has a past medical history of Anxiety; Asthma; Bladder pain; Cancer (HCC); Chronic lung disease; Chronic sinusitis; Depression; Hard of hearing; Headache; History of prostate cance r; Insomnia; Monoclonal gammopathy; Osteoarthritis; Restless leg; Seasonal allergies; Sleep apnea; and Waldenstrom's disease (HCC). Past Surgical History He has a past surgical history that includes Radical prostatectomy, robotic-assisted laparo scopic (05/14/10); Bilateral pelvic lymph node dissection (05/14/10); Left meniscal repair (21 10); Left ureteroscopic stone extraction (06/20/02); Lithotripsy for kidney stone (2002); Sin us polylp removal x 2 (); Sinus debridements (1983); Cystoscopy, left retrograde py elogram, left ureteral stone manipulation, placement left ureteral stent (08/20/10); Left ESW L, removal of left ureteral stent (09/04/10); Esophagus dilation (03/28/13); Total knee arthro plasty (Left, 08/01/2014); Upper gastrointestinal endoscopy (N/A, 06/23/2016); and Cystoscopy Insertion/Removal Stent/Stone (Left, 09/16/2017). Family History: His family history includes Allergies in an other family member; Alzheimer's disease in his father; Depression in an other family member; Diabetes in his father and another family mem wisam; Heart disease in his mother; High blood pressure in an other family member; High choles terol in an other family member; Other (see comment) in some other family members; Prostate cancer in his father and another family member; Rheum arthritis in an other family member; S troke in an other family member. Social History: He reports that he has never smoked. He has never used smokeless tobacco. He reports that h e does not drink alcohol or use drugs. Allergies Allergen Reactions Trazodone Anxiety Urinary incontinence Medications: Outpatient Encounter Prescriptions as of 12/14/2017 Medication Sig Dispense Refill ALPRAZolam (XANAX) 0.25 mg tablet Take 0.25 mg by mouth nightly as needed. 0 amitriptyline (ELAVIL) 10 mg tablet Take 10 mg by mouth Daily. 1 amoxicillin (AMOXIL) 500 MG capsule take 4 capsules by mouth 1 hour prior to dental ivory ointment 0 budesonide (RHINOCORT ALLERGY) 32 mcg/nasal spray nasal spray 1 spray by Nasal route Da lu. buPROPion (WELLBUTRIN) 100 mg tablet Take 100 mg by mouth 2 times daily. 0 COMBIVENT RESPIMAT 20-100 MCG/ACT inhaler Inhale 20-100 mcg into the lungs 4 times patience y. 0 diphenhydrAMINE-acetaminophen (TYLENOL PM EXTRA STRENGTH) 25-500 MG TABS Take 2 tablets by mouth nightly as needed. HYDROcodone-acetaminophen (NORCO) 5-325 mg per tablet Take 1-2 tablets by mouth every 4 hours as needed for Pain. 25 tablet 0 Loratadine-Pseudoephedrine (PX ALLERGY RELIEF D, LORATID, PO) Take by mouth as needed. mirabegron (MYRBETRIQ) 25 mg ER tablet Take one 25 mg tab orally once daily to reduce b ladder pain. May increase to 50 mg daily if needed. 28 tablet 0 mometasone-formoterol (DULERA) 200-5 mcg/puff inhaler Inhale 2 puffs into the lungs Twi ce Daily. 1 Inhaler 3 montelukast (SINGULAIR) 10 mg tablet take 1 tablet by mouth once daily 0 omeprazole (PRILOSEC) 20 mg capsule take 1 capsule by mouth once daily 0 paroxetine (PAXIL) 30 MG tablet Take 30 mg by mouth every morning. 0 pramipexole (MIRAPEX) 0.25 mg tablet Take 0.125 mg by mouth 3 times daily as needed. 0 predniSONE (DELTASONE) 10 mg tablet Take 2 tablets by mouth 2 times daily. Take 20 mg t wice daily for five days, then 20 mg daily for three days, then 10 mg daily for three days, then 10 mg alternate days for 6 days, then stop 50 tablet 1 SSD 1 % cream apply topically daily as directed 0 tamsulosin (FLOMAX) 0.4 mg CAPS take 1 capsule by mouth every evening 30 capsule 0 traMADol (ULTRAM) 50 mg tablet Take 50 mg by mouth every 6 hours as needed for Pain. Triamcinolone Acetonide (NASACORT ALLERGY 24HR NA) 1 spray by Nasal route Daily. Xylitol POWD by Does not apply route. For sinus problems zolpidem (AMBIEN) 10 mg tablet Take 1 tablet by mouth nightly as needed. 15 tablet 0 No facility-administered encounter medications on file as of 12/14/2017. REVIEW OF SYSTEMS: [] All Negative Constitutional Symptoms: [x]Fever [x]Chills [x]Headache []Change in appetite [] Change in weight [] Change in jeb rgy []Other: Neurological: []Tremors [x]Dizzy Spells [x]Numbness/Tingling []Seizures []Other: Endocrine: []Excessive thirst [x]Too hot [] Too cold [x]Tired/Sluggish Gastrointestinal: []Abdominal pain []Nausea/vomiting []Indigestion/heartburn [x]Change in stool size [x] Anette nge in stool shape [] Change in stool color [x]Pain with swallowing []Other: Cardiovascular: []Chest Pain []Rapid heart rate []High blood pressure []Other: Integumentary: [x]Skin rash []Boils []Persistent itch []Other: Musculoskeletal: [x]Neck Pain [x]Joint swelling/pain [x]Back pain []Bone pain []Other: Respiratory: [x]Wheezing [x]Frequent cough [x]Shortness of breath []Other: Hematologic/Lymphatic: []Swollen glands []Blood clotting problems [x]Prior blood transfusions []Other: Psychologic: Are you generally satisfied with your life? yes Do you feel severely depressed? no Have you considered suicide? no Other: Habits: Do you smoke? no [x] Yes [] No Patient advised to follow up with PCP regarding positives on review of s ystems. PHYSICAL EXAM Vitals: BP 126/84 | Pulse 72 | Resp 16 | Wt 90.5 kg (199 lb 8.3 oz) | BMI 27.05 kg/m General: Awake, alert, in no acute distress. Speech is fluent. Appears to be stated age. Neck: No carotid bruits audible. No lymphadenopathy or thyromegaly. Lungs: Normal respiratory effort, no wheezing, no stridor, no tachypnea. Chest: No rib or bony tenderness. No gynecomastia. Back: No CVA tenderness. No tenderness to fist percussion of the spine. Abdomen: Soft, nontender, nondistended, no hepatosplenomegaly. No masses. No guarding; be nign. Bladder nondistended. Soft, nontender, easily reducible umbilical hernia. Extremities: Warm and dry, well perfused. Neuro: Awake, alert, oriented x3. Normal station and gait. Psychiatric: Mood and affect are normal. Normal judgment. Skin: Warm and dry, no erythematous rash. Groin: No mass. No lymphadenopathy. DIAGNOSTIC DATA: Bladder biopsy 09/16/2017: FINAL PATHOLOGIC DIAGNOSIS: Trigone lesion bladder, biopsy: - Mild chronic active cystitis. - Negative for urothelial malignancy. JVR:[facility]:C2NR CT UROGRAM W WO CONTRAST 08/19/2017 11:16 AM IMPRESSION - 1. 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 -Recommend direct visualization/biopsy. 2. No evidence of hydronephrosis or hydroureter. No definite evidence of involvement of the urinary bladder. Other chronic findings as detailed above. Dictated and Signed by: Srinivasan Calderon MD Electronically signed: 08/19/2017 PSA 12/11/2017 is <0.014. PSA 12/04/2016 is <0.014. PSA 11/23/2015 is <0.014. PSA 11/09/2014 is <0.014. PSA 07/04/2014 is <0.014. PSA 08/02/2013 is <0.014. PSA 07/22/2012 is <0.014. Lab Results Component Value Date CREA 0.95 09/07/2017 BUN 11 09/07/2017 NA 140 09/07/2017 K 3.6 09/07/2017 CL 105 09/07/2017 CO2 26 09/07/2017 Lab Results Component Value Date COLORUA Yellow 09/07/2017 CLARITYUA Clear 09/07/2017 PHUR 5.0 09/07/2017 SPECIFICGRAV 1.023 09/07/2017 PROTUA 30 mg/dL (A) 09/07/2017 BLOODU Negative 09/07/2017 GLUCOSEU 150 mg/dL (A) 09/07/2017 KETONES Negative 09/07/2017 BILIRUBINUA Negative 09/07/2017 NITRITEUA Negative 09/07/2017 LEUKOESTUA Negative 09/07/2017 UROBILIUA 4.0 mg/dL (A) 09/07/2017 WBCUA 2-5 (A) 12/14/2017 RBCUA 0-2 12/14/2017 SQUAMEPIUA 0-2 12/14/2017 BACTERIAUA Negative 12/14/2017 Lab Results Component Value Date COLORPOC Alissa (A) 12/14/2017 CLARITYU Clear 12/14/2017 GLUCOSEPOC Negative 12/14/2017 BILIPOC Negative 12/14/2017 SG 1.010 12/14/2017 RBCUR Negative 12/14/2017 PHUAPOC 7.0 12/14/2017 PROTEINPOC Negative 12/14/2017 UROBILINOGEN 4.0 E.U./dL (A) 12/14/2017 NITRITEPOC Negative 12/14/2017 LEUKOCYTESUR Trace (A) 12/14/2017 IMPRESSION: 1. Gross hematuria. Underlying etiology remains idiopathic. A small trigone lesion was t he only abnormality encountered at endoscopy 09/16/2017, and biopsy demonstrated no malignanc y. Fortunately, his current urinalysis remains negative. 2. Left ureteral filling defect and mucosal thickening. No tumors noted at ureteroscopy . 3. Clinical stage T2c, N0, M0 adenocarcinoma of the prostate. There is no evidence of dis ease recurrence status post robotic assisted laparoscopic prostatectomy 05/14/2010. He is >7 years disease-free. 4. Punctate bilateral nephroliths. 5. Intermittent suprapubic abdominal pain. Resolved. 6. Stress urinary incontinence. 7. Intrinsic sphincter deficiency. Urethral sphincter appears incapable of good coaptatio n. 8. Umbilical hernia. 9. Right inguinal hernia. Asymptomatic. 10. Asthma. 11. Seasonal allergies. 12. Monoclonal gammopathy. 13. Left sciatica. 14. Erectile dysfunction. 15. Chronic sinusitis. 16. Simple bilateral renal cysts. Largest measures 2.3 cm in the left kidney. PLAN: We discussed the significance of his past gross hematuria. I advised him that had been guy ble to localize his hematuria or determine a cause of his hematuria. Therefore, I advised h im that if he has recurrence of gross hematuria, he should notify me so that we can consider further investigation/evaluation. We discussed treatment options for his urinary incontinence. He indicates that his symptom s are not particularly bothersome to him at this time, and, he does not wish to pursue an ar tificial urinary sphincter device or a sling. He will perform Kegel exercises. Yuval will follow-up in 12 months with a repeat PSA, PVR, urinalysis, and comprehensive meta bolic panel. He will follow-up sooner if any difficulties should arise in the interim. Yuval will continue his regular and customary care and follow-up with his PCP. This document was generated in part using voice recognition software. Frequent wrong word or sound-alike substitutions may have occurred due to the inherent limitations of the voice recognition software. Although I have attempted to edit the content, I have not thoroughly proofread this note, and gang leader errors are likely to occur. CC: Lucien Alonso MD in this encounter Plan of Treatment +--------+---------+ + + + | Date | Type | Specialty | Care Team | Description | +--------+---------+ + + + | 02/09/ | Office | Urology | Rick Guan, | | | 2017 | Visit | | MD [facility], | | | | | | [address] | | | | | | [place] [address] | | | | | | [phone] | | | | | | | | +--------+---------+ + + + | 12/21/ | Office | Urology | Rick Guan, | | | 2018 | Visit | | MD [address] [place], | | | | | | [address] | | | | | | [place] [address] | | | | | | [phone] | | | | | | | | +--------+---------+ + + + as of this encounter Procedures + +--------+ + + + | Procedure Name | Priori | Date/Time | Associated Diagnosis | Comments | | | ty | | | | + +--------+ + + + | URINALYSIS, | Routin | 12/14/2017 | Pyuria | Results for this | | MICROSCOPIC ONLY, | e | 1039 PDT | | procedure are in the | | WITH CULTURE IF | | | | results section. | | INDICATED | | | | | + +--------+ + + + | POCT URINALYSIS | Routin | 12/14/2017 | Pyuria | Results for this | | | e | 1038 PDT | | procedure are in the | | | | | | results section. | + +--------+ + + + in this encounter Results Urinalysis, Microscopic Only, with Culture if Indicated (12/14/2017 1039) + + + + + | Component | Value | Ref Range | Performed At | + + + + + | WBC UA | 2-5 (A) | 0 - 2 /HPF | [facility] | | | | [facility] | | | | | [facility]ORY | + + + + + | RBC UA | 0-2 | 0 - 2 /HPF | [facility] | | | | [facility] | | | | | [facility] | + + + + + | SQUAMOUS EPITHELIAL | 0-2 | 0 - 2 /LPF | [facility] | | [facility] | | | [facility] | | | | | [facility]ORY | + + + + + | BACTERIA UA | Negative | Negative /HPF | [facility] | | | | | [facility] - | | | | | [facility]ORY | + + + + + | MUCUS UA | Present (A) | Negative /LPF | [facility] | | | | | [facility] - | | | | | [facility]ORY | + + + + + | URINE COMMENT | Urine Culture Not | | [facility] | | | Indicated | | [facility] | | | [facility] - | | | | | [facility]ORY | + + + + + + + | Specimen | + + | Urine - Urine, Clean | | Catch | + + + + + + + | Performing | Address | City/State/Zipcode | Phone Number | | Organization | | | | + + + + + | [facility] | [address] | [place], [place] | [phone] | | [facility] | | [address] | | | - LABORATORY | | | | + + + + + | [facility] | [address] | [place], [place] | | | [facility] | | [address] | | | - LABORATORY | | | | + + + + + POCT Urinalysis Dipstick Automated (12/14/2017 1038) + + + + + | Component | Value | Ref Range | Performed At | + + + + + | Color, UA, POC | Alissa (A) | Yellow, Light Yellow | | + + + + + | Clarity, UA, POC | Clear | | | + + + + + | Glucose, UA, POC | Negative | Negative | | + + + + + | Bilirubin, UA, POC | Negative | Negative | | + + + + + | Ketones, UA, POC | Negative | Negative, 100 mg/dL | | + + + + + | Specific [place], | 1.010 | 1.001 - 1.030 | | | UA, POC | | | | + + + + + | Blood, UA, POC | Negative | Negative | | + + + + + | pH, UA, POC | 7.0 | 5.0, 6.0, 7.0, 8.0, | | | | | 5.5, 6.5, 7.5 | | + + + + + | Protein, UA, POC | Negative | Negative | | + + + + + | Urobilinogen, UA, | 4.0 E.U./dL (A) | 0.2, Negative, | | | POC | | Normal, < 0.2 mg/dL, | | | | | 1 mg/dL, < 0.2 | | | | | E.U./dl, 1.0 | | | | | E.U./dL, 0.2 mg/dL | | + + + + + | Nitrite, UA, POC | Negative | Negative | | + + + + + | Leukocyte Esterase, | Trace (A) | Negative | | | UA, POC | | | | + + + + + | RED SUB UA | | | | + + + + + | ICTOTEST | | Negative | | + + + + + | REMARK | | | | + + + + + + + | Specimen | + + | Urine | + + in this encounter Visit Diagnoses + + | Diagnosis | + + | Prostate cancer (HCC) - Primary | + + | Malignant neoplasm of prostate | + + | Stress incontinence | + + | Intrinsic sphincter deficiency (ISD) | + + | Intrinsic (urethral) sphincter deficiency (ISD) | + + | Pyuria | + + | Other nonspecific finding on examination of urine | + +
--- OUTSIDE RECORDS SUMMARY | ~2018-02-07 | XMS | Encounter Summary ---
Demographics + + + | Address | [address] | | | [place] [address] | + + + | Home Phone | | + + + | Preferred Language | Unknown | + + + | Marital Status | | + + + | Confucianist Affiliation | 1001 | + + + | Race | Unknown | + + + | Ethnic Group | Unknown | + + + Author + + + | Author | [facility] | | | and [place] | + + + | Organization | [facility] | | | and [place] | + + + | Address | Unknown | + + + | Phone | Unavailable | + + + Support + + + + + | Name | Relationship | Address | Phone | + + + + + | Nunu Meléndez | ECON | [address] | | | K | | [place] | | | | | [address] | | + + + + + | Iain Meléndez | ECON | [address] | | | | | [place] | | | | | [address] | | + + + + + Care Team Providers + +------+ + | Care Rehabilitation Counsellor Name | Role | Phone | + [...] | MD [address], | ([facility]) (Primary Dx) | | | | [address] [place] | [address] [place] | | | | | [place] [address] | [place] [address] | | | | | [phone] | [phone] | | | | | | | [...] [place] | | | | | | [place] [address] | | | | | | [phone] | | | | | | | | +--------+---------+ + + + | 12/21/ | Office | Urology | Rick Guan, | | | 2018 | Visit | | MD Mark LIU, | | | | | | [address] [place] | | | | | | [place] [address] | | | | | | [phone] | | | | | | | [...]
--- OUTSIDE RECORDS SUMMARY | ~2018-02-07 | XMS | Clinical Summary ---
Demographics + + + | Address | [address] | | | [place] [address] | + + + | Home Phone | | + + + | Preferred Language | Unknown | + + + | Marital Status | | + + + | Mosque Affiliation | Unknown | + + + [...] Phone | + + +---------+ + | NAPOLEON SOLANO | ECON | Unknown | | + + +---------+ + Care Team Providers + +------+ + | Care Tile Sprayer Name | Role | Phone | + +------+ + PP | Unavailable | + +------+ + Source Comments ONOFRE is fully live on both [facility] Ambulatory and [facility]Patient[facility] Allergies Not on File Current Medications + + +-------+---------+------+------+-------+ | Prescription | Sig. | Disp. | Refills | Star | End | Statu | | | | | | t | Date | s | | | | | | Date | | | + + +-------+---------+------+------+-------+ | PREDNISONE 5 MG | see comments | | | 01/0 | | Activ | | ORAL TAB | | | | 19 | | e | | | | | | 00 | | | + + +-------+---------+------+------+-------+ Active Problems Not on file Social History [...] on file | | + + + Plan of Treatment + + + + + | Health Maintenance | Due Date | Last Done | Comments | + + + + + | Pneumococcal (Adult) | | | | | (1 of 2 - PCV13) | 7 | | | + + + + + | Influenza (Flu) | | | | | vaccination (#1) | 8 | | | + + + + + Results Not on filefrom Last 3 Months Insurance + +--------+ +------+ + + | Payer | Benefi | Subscriber | Type | Phone | Address | | | t Plan | ID | | | | | | / | | | | | | | Group | | | | | + +--------+ +------+ + + | [employer]UE | REGENC | xxxxxxxxxxx | PPO | [phone] | [address] [address] [place] | | SHIELD | E BCBS | x | | [phone] | [place], [place] | | | | | | | [address] | + +--------+ +------+ + + + +--------+ +--------+ + + | Guarantor Name | Accoun | Relation to | Date | Phone | Billing Address | | | t Type | Patient | of | | | | | | | | | | + +--------+ +--------+ + + | RUPERTO SOLANO | Person | Self | [birth year] | Home: | [address] | | | [place] | | 1941 | [phone] | [place] | | | lu | | | [phone] | [phone] | + +--------+ +--------+ + +"
--- OUTSIDE RECORDS SUMMARY | ~2018-02-07 | XMS | Encounter Summary ---
Demographics + + + | Address | [address] | | | [place] [address] | + + + | Home Phone | | + + + | Preferred Language | Unknown | + + + | Marital Status | | + + + | Scientologist Affiliation | 1001 | + + + | Race | Unknown | + + + | Ethnic Group | Unknown | + + + Author + + + | Author | [facility] | | | and [place] | + + + | Organization | [facility] | | | and [place] | + + + | Address | Unknown | + + + | Phone | Unavailable | + + + Support + + + + + | Name | Relationship | Address | Phone | + + + + + | Nunu Meléndez | ECON | [address] | | | K | | [place] | | | | | [address] | | + + + + + | Iain Meléndez | ECON | [address] | | | | | [place] | | | | | [address] | | + + + + + Care Team Providers + +------+ + | Care Auto Repair Shop Manager Name | Role | Phone | + [...] + + | 12/14/ | Office | [facility] | Rick Guan, | Prostate cancer | | 2018 | Visit | [address] | MD [address] [facility], | ([facility]) (Primary Dx); | | | | [address] [place] | [address] [place] | Stress incontinence; | | | | [place] [address] | [place] [address] | Intrinsic sphincter | | | | [phone] | [phone] | deficiency (ISD); | | | | [...] be recommended. If surgery is an option, [facility] provider[facility] discuss it with you and explain its risks and benefits. Healing after prostate surgery Surgery on the prostate gland can cause incontinence. Most often, the incontinence is only for a short time. It clears up when healing is complete. Rarely, prostate surgery can result in permanent incontinence. Date Last Reviewed: 05/04/201619996938-[address] [employer] [place] [address]. All righ ts reserved. This information is [...] help prevent urine leakage. Date Last Reviewed: 02/01/201719994197-3715 [employer]. [address] [place] [address], [place] [address]. All righ ts reserved. This information is [...] very well. His granddaughter was recently in [place]. He denies any difficulties with voiding except [...] active cystitis. - Negative for urothelial malignancy. JVR:[facility]:C2NR CT UROGRAM W WO CONTRAST 08/19/2017 [...] have not thoroughly proofread this note, and hand scudder errors are likely to occur. CC: Lucien [...] | | | | | | [place] [address] | | | | | | [phone] | | | | | | | | +--------+---------+ + + + | 12/21/ | Office | Urology | Rick Guan, | | | 2018 | Visit | | MD Mark LIU, | | | | | | [address] [place] | | | | | | [place] [address] | | | | | | [phone] | | | | | | | [...] + | [facility] | [address] [place] [address] | [place], [place] | [phone] | | [facility] | | [address] | | | - LABORATORY | | | | + + + + + | [facility] | [address] [place] [address] | [place], [place] | | | [facility] | | [address] | | | - LABORATORY | | [...] + + + + + | Specific [place], | 1.010 | 1.001 - 1.030 | [...]
--- OUTSIDE RECORDS SUMMARY | ~2018-02-07 | XMS | Clinical Summary ---
Demographics + + + | Address | [address] | | | [place] [address] | + + + | Home Phone | | + + + | Preferred Language | Unknown | + + + | Marital Status | | + + + | Voodoo Affiliation | 1001 | + + + | Race | Unknown | + + + | Ethnic Group | Unknown | + + + Author + + + | Author | [facility] | | | and [place] | + + + | Organization | [facility] | | | and [place] | + + + | Address | Unknown | + + + | Phone | Unavailable | + + + Support + + + + + | Name | Relationship | Address | Phone | + + + + + | Nunu Solano | ECON | [address] | | | K | | [place] | | | | | [address] | | + + + + + | Iain Solano | ECON | [address] | | | | | [place] | | | | | [address] | | + + + + + Care Team Providers + +------+ + | Care Electric Melt Operator Name | Role | Phone | [...] Lateral Mid (less than 1%), 3+4=11/10 Right [place] | | (17%), Right Lateral Mid (30%)Robotic-assisted [...] for urothelial malignancy.CT Urogram 08/19/17 | | [facility] 12/21/15 [facility] [address] Abd/Pel w/wo 02/08/02 [facility] | | CT Abd w/[facility]/o 11/25/01 [facility] [address] | | Chest/Abd/Pel w 01/13/12 [facility] | | | | 03/11/07 3.42 | | 01/02/06 2.28 | | 12/26/04 2.84 | | 12/20/03 2.21 | | 12/26/02 2.3 | | 12/28/01 1.86 | | | |Prostate biopsy: 02/19/2010 ODL Stage T2c, N0, M0 Adenocarcinoma of the prostate | | GS 3+3= 10/11 Left apex (18%), Left Lateral Mid (less than 1%), | | 3+4=7 Right [place] (17%), Right Lateral Mid (30%) | | [...] | | | |CT Abd/Pel w/wo 02/08/02 [facility] | | | |CT Abd w/o [...] 2017 | Visit | | MD | ([facility]) (Primary Dx); | | | | | [...] + + | 02/09/ | Office | | Rick Guan, | | | 2017 | Visit | | MD Mark LIU, | | | | | | [address] | | | | | | [place] [address] | | | | | | [phone] | | | | | | | | +--------+---------+ + + + | 12/21/ | Office | | Rick Guan, | | | 2018 | Visit | | MD [address], | | | | | | [address] | | | | | | [place] [address] | | | | | | [phone] | | | | | | | [...] | | 12/02/ | 00-111 | | [id number]: Qty: 2 on | | Knee | VALERIE | | 2018 | 3-140- | | 08/01/2014 by Lake Harris | | | | | | 01 / | | MD [place] | | | | | | /[id number] | | | | | | | | 393 | + +------+--------+ +--------+--------+--------+ | Screw Hex 2.5x25mm - | | Left: | FREEDOM - | | 07/02/ | 42-509 | | [id number]: Qty: 1 on | | Knee | ZIMM | | 2024 | 9-025- | | 08/01/2014 by Lake Harris | | | | | | 25 / | | MD Dorinda | | | | | | /[address] | | | | | | | | 508 | + +------+--------+ +--------+--------+--------+ | Imp Asf Uc 10mm Ve L 7-12 Gh | | Left: | FREEDOM - | | 05/23/ | 42-512 | | - [id number]: Qty: 1 | | Knee | ZIMM | | 2019 | 2-006- | | on 08/01/2014 by Steven, | | | | | | 10 / | | Lake Seth MD | | | | | | /[id number] | | | | | | | | 193 | + +------+--------+ +--------+--------+--------+ | Imp Knee Ptela Polyeth 38mm - | | Left: | FREEDOM - | | 01/21/ | 42-540 | | [id number]: Qty: 1 | | Knee | ZIMM | | 2022 | 0-000- | | on 08/01/2014 by Steven, | | | | | | 38 / | | Lake Seth MD | | | | | | /[address] | | | | | | | | 366 | + +------+--------+ +--------+--------+--------+ | Imp Knee Tib 5deg Lt Szh - | | Left: | FREEDOM - | | 07/21/ | 42-532 | | [id number]: Qty: 1 on | | Knee | ZIMM | | 2024 | 0-083- | | 08/01/2014 by Lake Harris | | | | | | 01 / | | MD Dorinda | | | | | | /[address] | | | | | | | | 732 | + +------+--------+ +--------+--------+--------+ | Imp Knee Fem Cr Cmt Ccr Sz10 | | Left: | CLAUDINE LEY - | | 03/23/ | 42-502 | | L - [id number]: Qty: | | Knee | CAP | | 2023 | 6-068- | | 1 on 08/01/2014 by Steven, | | | | | | 01 / | | Lake Seth MD | | | | | | /[address] | | | | | | | | 869 | + +------+--------+ +--------+--------+--------+ | Imp Knee Tot Adilson Sadv - | | Left: | CAP LEY - | | | OK2A / | | [id number]: Qty: 1 on | | Knee | CAP | | | / | | 08/01/2014 by Lake Harris | | | | | | | | E, MD | | | | | | | + +------+--------+ +--------+--------+--------+ | Imp Totjnt Upch Biom Oks - | | Left: | CAP LEY - | | | OKM-43 | | [id number]: Qty: 1 on | | Knee | [...] | + +--------+ + + + | LABS - EXTERNAL SCAN | | 12/11/2017 | | Results for this | | | | 0000 PDT | | procedure are in the [...] + | [facility] | [address] | [place] | [phone] | | [facility] | | [address] | | | - LABORATORY | | | | + + + + + | [facility] | [address] | [place] | | | [facility] | | [address] | | | - LABORATORY | | [...] + + + + + | Specific [place], | 1.010 | 1.001 - 1.030 | [...] | + + | [facility] | + + + +---------+ + + | Performing | Address | City/State/Zipcode | Phone Number | | Organization | | | | + +---------+ + + | EXTERNAL LAB | | | | + +---------+ + + LABS - EXTERNAL SCAN (12/11/2017) + + + | Narrative | Performed At | + + + | Ordered by an | | | unspecified provider. | | + + + from Last 3 Months Insurance + +--------+ +--------+-------+---------+ | Payer | Benefi | Subscriber | Type | Phone | Address | | | t Plan | ID | | | | | | / | | | | | | | Group | | | | | + +--------+ +--------+-------+---------+ | [employer] | MODA | [id number] | Medica | | | | | [...] | Self | [birth year] | Home: | [address] | | [place] | | 1941 | [phone] | [place] | | | [place] | | | [phone] | [phone] | + +--------+ +--------+ + +
--- OUTSIDE RECORDS SUMMARY | ~2018-02-07 | XMS | Encounter Summary ---
Demographics + + + | Address | [address] | | | [place] [address] | + + + | Home Phone | | + + + | Preferred Language | Unknown | + + + | Marital Status | | + + + | Restoration Affiliation | 1001 | + + + | Race | Unknown | + + + | Ethnic Group | Unknown | + + + Author + + + | Author | [facility] | | | and [place] | + + + | Organization | [facility] | | | and [place] | + + + | Address | Unknown | + + + | Phone | Unavailable | + + + Support + + + + + | Name | Relationship | Address | Phone | + + + + + | Nunu Meléndez | ECON | [address] | | | K | | [place] | | | | | [address] | | + + + + + | Iain Meléndez | ECON | [address] | | | | | [place] | | | | | [address] | | + + + + + [...] [place] | | | | | [place] [address] | [place] [address] | | | | | [phone] | [phone] | | | | | | | [...] | | | | | | [place] [address] | | | | | | [phone] | | | | | | | | +--------+---------+ + + + | 12/21/ | Office | Urology | Rick Guan, | | | 2018 | Visit | | MD Mark LIU, | | | | | | [address] [place] | | | | | | [place] [address] | | | | | | [phone] | | | | | | | [...] | + + | [facility] | + + + +---------+ + + [...]
--- OUTSIDE RECORDS SUMMARY | ~2018-02-07 | XMS | Clinical Summary ---
Demographics + + + | Address | [address] | | | [place] [address] | + + + | Home Phone | | + + + | Preferred Language | Unknown | + + + | Marital Status | | + + + | Methodist Affiliation | 1001 | + + + | Race | Unknown | + + + | Ethnic Group | Unknown | + + + Author + + + | Author | [facility] | | | and [place] | + + + | Organization | [facility] | | | and [place] | + + + | Address | Unknown | + + + | Phone | Unavailable | + + + Support + + + + + | Name | Relationship | Address | Phone | + + + + + | Nunu Solano | ECON | [address] | | | K | | [place] | | | | | [address] | | + + + + + | Iain Solano | ECON | [address] | | | | | [place] | | | | | [address] | | + + + + + Care Team Providers + +------+ + | Care Industrial Custodian Name | Role | Phone | [...] Lateral Mid (less than 1%), 3+4=11/10 Right [place] | | (17%), Right Lateral Mid (30%)Robotic-assisted [...] for urothelial malignancy.CT Urogram 08/19/17 | | [facility] 12/21/[address] [facility] [address] Abd/Pel w/wo 02/08/02 [facility] | | CT Abd w/o [facility] w/o 11/25/[address] [facility] [address] | | Chest/Abd/Pel w 01/13/12 [facility] | | | | 03/11/07 3.42 | | 01/02/06 2.28 | | 12/26/04 2.84 | | 12/20/03 2.21 | | 12/26/02 2.3 | | 12/28/01 1.86 | | | |Prostate biopsy: 02/19/2010 ODL Stage T2c, N0, M0 Adenocarcinoma of the prostate | | GS 3+3= 10/11 Left apex (18%), Left Lateral Mid (less than 1%), | | 3+4=7 Right [place] (17%), Right Lateral Mid (30%) | | [...] | | | |CT Abd/Pel w/wo 02/08/02 [facility] | | | |CT Abd w/o [...] 2017 | Visit | | MD | ([facility]) (Primary Dx); | | | | | [...] | | | | | | [place] [address] | | | | | | [phone] | | | | | | | | +--------+---------+ + + + | 12/21/ | Office | | Rick Guan, | | | 2018 | Visit | | MD [address], | | | | | | [address] | | | | | | [place] [address] | | | | | | [phone] | | | | | | | [...] | | 12/02/ | 00-111 | | [id number]: Qty: 2 on | | Knee | VALERIE | | 2018 | 3-140- | | 08/01/2014 by Lake Harris | | | | | | 01 / | | MD Dorinda | | | | | | /[address] | | | | | | | | 393 | + +------+--------+ +--------+--------+--------+ | Screw Hex 2.5x25mm - | | Left: | FREEDOM - | | 07/02/ | 42-509 | | [id number]: Qty: 1 on | | Knee | ZIMM | | 2024 | 9-025- | | 08/01/2014 by Lake Harris | | | | | | 25 / | | MD Dorinda | | | | | | /[address] | | | | | | | | 508 | + +------+--------+ +--------+--------+--------+ | Imp Asf Uc 10mm Ve L 7-12 Gh | | Left: | FREEDOM - | | 05/23/ | 42-512 | | - [id number]: Qty: 1 | | Knee | ZIMM | | 2019 | 2-006- | | on 08/01/2014 by Steven, | | | | | | 10 / | | [place] Seth MD | | | | | | /[address] | | | | | | | | 193 | + +------+--------+ +--------+--------+--------+ | Imp Knee Ptela Polyeth 38mm - | | Left: | FREEDOM - | | 01/21/ | 42-540 | | [id number]: Qty: 1 | | Knee | ZIMM | | 2022 | 0-000- | | on 08/01/2014 by Steven, | | | | | | 38 / | | [place] Seth MD | | | | | | /[address] | | | | | | | | 366 | + +------+--------+ +--------+--------+--------+ | Imp Knee Tib 5deg Lt Szh - | | Left: | FREEDOM - | | 07/21/ | 42-532 | | [id number]: Qty: 1 on | | Knee | ZIMM | | 2024 | 0-083- | | 08/01/2014 by Lake Harris | | | | | | 01 / | | MD Dorinda | | | | | | /[address] | | | | | | | | 732 | + +------+--------+ +--------+--------+--------+ | Imp Knee Fem Cr Cmt Ccr Sz10 | | Left: | CLAUDINE LEY - | | 03/23/ | 42-502 | | L - [id number]: Qty: | | Knee | CAP | | 2023 | 6-068- | | 1 on 08/01/2014 by Steven, | | | | | | 01 / | | Lake Seth MD | | | | | | /[address] | | | | | | | | 869 | + +------+--------+ +--------+--------+--------+ | Imp Knee Tot Adilson Sadv - | | Left: | CAP LEY - | | | OK2A / | | [id number]: Qty: 1 on | | Knee | CAP | | | / | | 08/01/2014 by Lake Harris | | | | | | | | E, MD | | | | | | | + +------+--------+ +--------+--------+--------+ | Imp Totjnt Upch Biom Oks - | | Left: | CAP LEY - | | | OKM-43 | | [id number]: Qty: 1 on | | Knee | [...] + | [facility] | [address] | [place] | [phone] | | [facility] | | [address] | | | - LABORATORY | | | | + + + + + | [facility] | [address] | [place] | | | [facility] | | [address] | | | - LABORATORY | | [...] + + + + + | Specific [place], | 1.010 | 1.001 - 1.030 | [...] | + + | [facility] [place] | + + + +---------+ + + [...] | [employer] | [employer] | [id number] | Medica | | | | | [...] | Self | [birth year] | Home: | [address] | | [place] | | 1941 | [phone] | [place] | | | [place] | | | [phone] | [phone] | + +--------+ +--------+ + +
--- OUTSIDE RECORDS SUMMARY | ~2018-02-07 | XMS | Clinical Summary ---
Demographics + + + | Address | [address] | | | [place] [address] | + + + | Home Phone [...] Team Providers + +------+ + | Care Python Consultant Name | Role | Phone | + +------+ + PP | Unavailable | + +------+ + Source Comments ONOFRE is fully live on both [facility] and [facility] InPatient.[facility] Allergies Not on File Current Medications + [...] | PPO | [phone] | [address] [address] [place] | | SHIELD | E BCBS | x | | [address] | [place], [place] | | | | | | | [address] | + +--------+ +------+ + + + +--------+ +--------+ + + | Guarantor Name | Accoun | Relation to | Date | Phone | Billing Address | | | t Type | Patient | of | | | | | | | | | | + +--------+ +--------+ + + | RUPERTO SOLANO | Person | Self | [birth year] | Home: | [address] | | | [place] | | 1941 | [phone] | [place] | | | [place] | | | [phone] | [phone] | + +--------+ +--------+ + +"
--- OUTSIDE RECORDS SUMMARY | ~2018-02-07 | XMS | Encounter Summary ---
Demographics + + + | Address | [address] | | | [place] [address] | + + + | Home Phone | | + + + | Preferred Language | Unknown | + + + | Marital Status | | + + + | Sabianist Affiliation | 1001 | + + + | Race | Unknown | + + + | Ethnic Group | Unknown | + + + Author + + + | Author | [facility] | | | and [place] | + + + | Organization | [facility] | | | and [place] | + + + | Address | Unknown | + + + | Phone | Unavailable | + + + Support + + + + + | Name | Relationship | Address | Phone | + + + + + | Nunu Meléndez | ECON | [address] | | | K | | [place] | | | | | [address] | | + + + + + | Iain Meléndez | ECON | [address] | | | | | [place] | | | | | [address] | | + + + + + Care Team Providers + +------+ + | Care Central Supply Technician Name | Role | Phone | + [...] | MD [address], | ([facility]) (Primary Dx) | | | | [address] [place] | [address] [place] | | | | | [place] [address] | [place] [address] | | | | | [phone] | [phone] | | | | | | | [...] | | | | | [place] [address] | | | | | | [phone] | | | | | | | | +--------+---------+ + + + | 12/21/ | Office | Urology | Rick Guan, | | | 2018 | Visit | | MD Mark LIU, | | | | | | [address] [place] | | | | | | [place] [address] | | | | | | [phone] | | | | | | | [...]
[~2018-02-07 16:49] MED LIST changes: +AMITRIPTYLINE H10 MG PO; +BACTRIM DS TAB1 EACH; +BUPROPION HCL100 M1; +BUPROPION HCL150 M2 PO; +COMBIVENT RESPIM4 GM INH; +DOXYCYCLINE HY100 MG PO; +DULERA 200 MCG/13 GM; +LEVOFLOXACIN500 MG; +MIRALAX17 GM PO; +MOMETASONE FURO45 G1; +NORCO 5-325 TA1 EACH; +PAROXETINE HCL30 MG; +PREDNISONE20 MG PO; +TAMSULOSIN HCL0.4 MG PO; +TOBRAMYCIN-DEXAM5 ML OU; +TRAZODONE HCL100 MG PO; +TRELEGY ELLIPT1 EACH INH; +VANQUISH CAPLE1 EACH PO; +ZOLPIDEM TARTRA10 MG PO
--- OUTSIDE RECORDS SUMMARY | 2018-02-07 16:54 | XMS ---
PreManage Notification: RUPERTO SOLANO Security Channel Layer Events No recent Security Events currently on file CRITERIA MET - [facility] - 2 Visits in 30 Days CARE PROVIDERS There are no care providers on record at this time. Ramírez has no Care Guidelines for this patient. Nancy VISIT COUNT (12 MO.) [address] [facility] [address] [facility] [place] TOTAL 3 NOTE: Visits indicate total known visits. ED/C VISIT TRACKING (12 MO.) 02/07/2018 16:50 [facility] [place] TYPE: Emergency COMPLAINT: - TROUBLE URINATING 02/03/2018 20:36 [facility] [place] TYPE: Emergency COMPLAINT: - CHILLS 06/19/2017 19:09 [facility] [place] TYPE: Emergency COMPLAINT: - COUGH DIAGNOSES: - Cough - Other mcc (current) drug therapy - Acute bronchitis, unspecified - Chronic obstructive pulmonary disease with acute lower respiratory infection INPATIENT VISIT TRACKING (12 MO.) No inpatient visits to display in this time frame [email or web address]
== END 2018-02-07 19:22 | disposition home or self-care (01) ==
LOC: ED 16:49
PROC: 4A0D7LZ Measurement of Urinary Volume, Via Natural or Artificial Opening (ICD-10-PCS; principal; 2018-02-07)
PROC: 0T9B70Z Drainage of Bladder with Drainage Device, Via Natural or Artificial Opening (ICD-10-PCS; 2018-02-07)
DX: R33.9 Retention of urine, unspecified (principal); Z79.899 Other long term (current) drug therapy
CPT/HCPCS: 51702; 51798; 81001; 99283

== ENCOUNTER 2018-10-01 10:40 | Emergency (ER) | payer MEDICARE ==
[~2018-10-01] VITALS: Ht 182.9 cm; Wt 87.1 kg
--- OUTSIDE RECORDS SUMMARY | ~2018-10-01 | XMS | Encounter Summary ---
Demographics + + + | Address | [address] | | | [place] [address] | + + + | Home Phone | | + + + | Preferred Language | Unknown | + + + | Marital Status | | + + + | Sikh Affiliation | Unknown | + + + | Race | White | + + + | Ethnic Group | Not or | + + + Author + + + | Author | [facility] | + + + | Organization | [facility] | + + + | Address | Unknown | + + + | Phone | Unavailable | + + + Support + + +---------+ + | Name | Relationship | Address | Phone | + + +---------+ + | Nunu Meléndez | ECON | Unknown | | + + +---------+ + Care Team Providers + +------+ + | Care Interventional Tech Name | Role | Phone | + +------+ + PCP | Unavailable | + +------+ + Encounter Details +--------+ + + + + | Date | Type | Department | Care Team | Description | +--------+ + + + + | 08/14/ | Transcribed | UNKNOWN DEPARTMENT | Dictation, Other | Transcribed | | 1993 | | [address] [facility] | | | | | | [facility] | | | | | | [place], [place] | | | | | | [address] | | | +--------+ + + + + Social History + +-------+ +--------+------+ | Tobacco Use | Types | Packs/Day | Years | Date | | | | | Used | | + +-------+ +--------+------+ | Never Assessed | | | | | + +-------+ +--------+------+ + + + | Sex Assigned at | Date Recorded | | | | + + + | Not on file | | + + + + + + + | Job Start Date | Occupation | Industry | + + + + | Not on file | Not on file | Not on file | + + + + + + + + | Travel History | Travel Start | Travel End | + + + + + + | No recent travel history available. | + + documented as of this encounter Progress Notes Interface, Enterprise Mobility Architect In - 09/03/2006 3:06 AM PDT [address] [address] [facility] August 14, 1992 PIERRE SERRANO MD [address] [place] [address] RE:Yuval Meléndez MR#:[id number] Serrano: Mr. Meléndez was seen on August 12, 1993, in [facility] by myself and Dr. Flores. We agree that he has a significant degree of reactive airway disease, as is consistent on review of a pulmonary function test that he brought with him and the ones that we had completed today. Unfortunately, it is difficult to discern what environmental or emotional factors could have been contributing to his illness that he had obviously had incurred in February 1993, given an FEV1 and FEC of 1.72 and 2.69. To specifically state whether his work place was a contributing factor, that would be very difficult for us to determine at this point in time. Specifically, in regard to his pulmonary function test, his FEV1/FVC on today's visit were 0.68, much improved as compared to the ones that had been done previously in , and . We agree with the medications that he had currently had him on, including the Nasalcrom, Beconase, Proventil, AeroBid and Cromolyn sodium and advised him to continue taking those medications as prescribed. Having spoke with Mr. Meléndez and his for a lengthy period of time during this visit, I do suspect that depression and anxiety may play a large part in this gentleman's current illness. both he and his became quite tearful during the office visit and I suggested that they both pursue counseling. They were amenable to this suggestion and I do suspect that they will pursue this avenue. We appreciate this interesting consult. Please call for any questions that you may have. Sincerely, Simran Ventura MD Resident, Internal Medicine EK:srini August 15, 1992 documented in this encounter Plan of Treatment Not on filedocumented as of this encounter Visit Diagnoses Not on filedocumented in this encounter"
--- OUTSIDE RECORDS SUMMARY | ~2018-10-01 | XMS | Encounter Summary ---
Demographics + + + | Address | [address] | | | [place] [address] | + + + | Home Phone | | + + + | Preferred Language | Unknown | + + + | Marital Status | | + + + | Spiritism Affiliation | 1001 | + + + | Race | Unknown | + + + | Ethnic Group | Unknown | + + + Author + + + | Author | [employer] | + + + | Organization | [facility] | + + + | Address | Unknown | + + + | Phone | Unavailable | + + + Support + + +---------+ + | Name | Relationship | Address | Phone | + + +---------+ + | Sunita Meléndez | ECON | Unknown | | + + +---------+ + | Iain Meléndez | ECON | Unknown | | + + +---------+ + Care Team Providers + +------+ + | Care Traveling Sales Executive Name | Role | Phone | + +------+ + | Lucien Alonso MD | PCP | | + +------+ + Reason for Referral MRI/CAT Scan (Routine) +--------+--------+ + + + + | Status | Reason | Specialty | Diagnoses / | Referred By | Referred To | | | | | Procedures | Contact | Contact | +--------+--------+ + + + + | Closed | | Radiology | Diagnoses | Edwige, | [facility] [address] | | | | | ILD | MD Scar | [address] | | | | | (interstitia | [address] | | | | | l lung | [address] | [place] | | | | | disease) | [place], | [address] Phone: | | | | | (HCC) | [place] [address] | [phone] | | | | | Procedures | Phone: | | | | | | CT chest | [phone] | | | | | | without | Fax: | | | | | | contrast | [phone] | | +--------+--------+ + + + + MRI/CAT Scan (Routine) +--------+--------+ + + + + | Status | Reason | Specialty | Diagnoses / | Referred By | Referred To | | | | | Procedures | Contact | Contact | +--------+--------+ + + + + | Closed | | Radiology | Diagnoses | Edwige, | [facility] [address] | | | | | ILD | MD Scar | [address] | | | | | (interstitia | [address] | | | | | l lung | [address] | [place], [place] | | | | | disease) | [place], | [address] Phone: | | | | | (HCC) | [place] [address] | [phone] | | | | | Procedures | Phone: | | | | | | CT chest | [phone] | | | | | | without | Fax: | | | | | | contrast | [phone] | | +--------+--------+ + + + + Reason for Visit MRI/CAT Scan (Routine) +--------+--------+ + + + + | Status | Reason | Specialty | Diagnoses / | Referred By | Referred To | | | | | Procedures | Contact | Contact | +--------+--------+ + + + + | Closed | | Radiology | Diagnoses | Edwige, | [facility] [address] | | | | | ILD | MD Scar | [address] | | | | | (interstitia | [address] | | | | | l lung | [address] | [place], [place] | | | | | disease) | [facility] | [address] Phone: | | | | | ([facility]) | [place] [address] | [phone] | | | | | Procedures | Phone: | | | | | | CT chest | [phone] | | | | | | without | Fax: | | | | | | contrast | [phone] | | +--------+--------+ + + + + Encounter Details +--------+ + + + + | Date | Type | Department | Care Team | Description | +--------+ + + + + | 09/23/ | Hospital | [facility] | Scar Gibbons MD | ILD (interstitial | | 2019 | Encounter | [facility] CT | [address] | lung disease) ([facility]) | | | | [address] | [place] [address] | | | | | [place] [address] | [phone] | | | | | [phone] | | | +--------+ + + + + Social History + +-------+ +--------+------+ | Tobacco Use | Types | Packs/Day | Years | Date | | | | | Used | | + +-------+ +--------+------+ | Never Smoker | | | | | + +-------+ +--------+------+ + +---+---+---+ | Smokeless Tobacco: | | | | | Never Used | | | | + +---+---+---+ + + +---------+ + | Alcohol Use | Drinks/We | oz/Week | Comments | | | ek | | | + + +---------+ + | No | | | | + + +---------+ + + + + | Sex Assigned at | Date Recorded | | | | + + + | Not on file | | + + + as of this encounter Medications at Time of Discharge + + +---------+---------+ + + | Medication | Sig. | Disp. | Refills | Start | End Date | | | | | | Date | | + + +---------+---------+ + + | | Inhale 2 puffs into | 1 | 12 | 05/27/19 | | | budesonide-formotero | the lungs 2 (two) | Inhaler | | 19 | 0 | | l (SYMBICORT) | times daily. | | | | | | 160-4.5 MCG/ACT | | | | | | | inhaler | | | | | | + + +---------+---------+ + + | buPROPion | Take 100 mg by | | | 06/06/19 | | | (WELLBUTRIN) 100 MG | mouth. | | | 17 | | | tablet | | | | | | + + +---------+---------+ + + | doxycycline | take 1 capsule by | | 0 | 05/26/19 | | | (VIBRAMYCIN) 100 MG | mouth twice a day | | | 19 | | | capsule | for 10 days | | | | | + + +---------+---------+ + + | fexofenadine | Take 60 mg by mouth | | | | | | (GWEN) 60 MG | daily. | | | | | | tablet | | | | | | + + +---------+---------+ + + | GUAIATUSSIN AC | take 5 to 10 | | 0 | 05/26/19 | | | 100-10 MG/5ML syrup | milliliters by mouth | | | 19 | | | | four times a day if | | | | | | | needed for cough | | | | | + + +---------+---------+ + + | methylPREDNISolone | Follow package | 21 | 0 | 05/27/19 | | | 4 MG dose pack | directions. | tablet | | 19 | | + + +---------+---------+ + + | methylPREDNISolone | Follow package | 21 | 0 | 07/14/19 | | | 4 MG dose pack | directions. | tablet | | 19 | | + + +---------+---------+ + + | PARoxetine (PAXIL) | Take 30 mg by mouth. | | | 08/01/19 | | | 30 MG tablet | | | | 15 | | + + +---------+---------+ + + | pramipexole | Take 0.125 mg by | | | 06/02/19 | | | (MIRAPEX) 0.25 MG | mouth. | | | 15 | | | tablet | | | | | | + + +---------+---------+ + + | PROAIR HFA 108 (90 | inhale 2 puffs by | | 0 | 05/19/19 | | | Base) MCG/ACT | mouth if needed | | | 19 | | | inhaler | every 6 hours | | | | | + + +---------+---------+ + + | silver | apply topically | | | 05/15/19 | | | sulfADIAZINE (SSD) 1 | daily as directed | | | 17 | | | % cream | | | | | | + + +---------+---------+ + + | triamcinolone | 1 spray by Nasal | | | | | | (NASACORT AQ) 55 | route. | | | | | | MCG/ACT nasal | | | | | | | inhaler | | | | | | + + +---------+---------+ + + | zolpidem (AMBIEN) | Take 10 mg by mouth. | | | 08/05/19 | | | 10 MG tablet | | | | 15 | | + + +---------+---------+ + + as of this encounter Plan of Treatment +--------+ + + + + | Date | Type | Specialty | Care Team | Description | +--------+ + + + + | 10/21/ | Appointment | | Scar Gibbons MD | | | 2018 | | | [address] | | | | | | [place] [address] | | | | | | [phone] | | | | | | | | +--------+ + + + + | 11/18/ | Appointment | | Scar Gibbons MD | | | 2018 | | | [address] | | | | | | [place] [address] | | | | | | [phone] | | | | | | | | +--------+ + + + + | 12/16/ | Appointment | | Scar Gibbons MD | | | 2018 | | | [address] | | | | | | [place] [address] | | | | | | [phone] | | | | | | | | +--------+ + + + + | 01/17/ | Office | Pulmonology | Scar Gibbons MD | | | 2018 | Visit | | [address] | | | | | | [place] [address] | | | | | | [phone] | | | | | | | | +--------+ + + + + as of this encounter Procedures + +--------+ + + + | Procedure Name | Priori | Date/Time | Associated Diagnosis | Comments | | | ty | | | | + +--------+ + + + | CT CHEST WO CONTRAST | Routin | 09/23/2018 | ILD (interstitial | Results for this | | | e | 11:12 AM | lung disease) (HCC) | procedure are in the | | | | PDT | | results section. | + +--------+ + + + in this encounter Results CT chest without contrast (09/23/2018 11:12 AM) + + + | Impressions | Performed At | + + + | Normal chest CT. No evidence of interstitial lung disease. | [facility] | | Signed by: Cecelia Rand, Jack Sign Date/Time: 09/23/2018 3:39 PM | RADIOLOGY | + + + + + + | Narrative | Performed At | + + + | CT CHEST WITHOUT CONTRAST CLINICAL INFORMATION: Interstitial lung | [facility] | | disease. Shortness of breath and cough. COMPARISON: CHEST TWO | RADIOLOGY | | VIEWS (05/26/2018); XR CHEST 1 VIEW (02/03/2018); XR CHEST 2 VIEW | | | (06/19/2017); CT UROGRAM W WO CONTRAST (08/19/2017); CHEST/ABD/PEL WITH | | | (01/13/2012); CT UROGRAM W WO CONTRAST (12/21/2015); PROCEDURE: Axial | | | images through the chest. Multiplanar reconstructions. At least one | | | of the following CT dose optimization techniques were used: Automated | | | exposure control; Adjustment of mA and/or kV according to patient | | | size; Use of iterative reconstruction technique. FINDINGS: Lungs, | | | Pleura and Airways: No significant pulmonary abnormality. No airway | | | narrowing or obstruction. No pleural effusion or pneumothorax. | | | Mediastinum: No significant pericardial, great vessel or esophageal | | | abnormality. No mediastinal mass. Lymph Nodes: No adenopathy. Upper | | | Abdomen: No significant abnormality in the visualized upper abdomen. | | | BODY WALL Soft Tissues: The soft tissues of the chest wall are | | | unremarkable. Bones: No acute fracture or vertebral end plate | | | destruction. No lytic or blastic lesion. | | + + + + + | Procedure Note | + + | Keith, Rad Results In - 09/23/2018 3:[address] CHEST WITHOUT CONTRAST | | CLINICAL INFORMATION: | | Interstitial lung disease. Shortness of breath and cough. | | COMPARISON: | | CHEST TWO VIEWS (05/26/2018); XR CHEST 1 VIEW (02/03/2018); XR CHEST 2 | | VIEW (06/19/2017); CT UROGRAM W WO CONTRAST (08/19/2017); CHEST/ABD/PEL | | WITH (01/13/2012); CT UROGRAM W WO CONTRAST (12/21/2015); | | PROCEDURE: | | Axial images through the chest. Multiplanar reconstructions. | | At least one of the following CT dose optimization techniques were | | used: Automated exposure control; Adjustment of mA and/or kV according | | to patient size; Use of iterative reconstruction technique. | | FINDINGS: | | Lungs, Pleura and Airways: No significant pulmonary abnormality. No | | airway narrowing or obstruction. No pleural effusion or pneumothorax. | | Mediastinum: No significant pericardial, great vessel or esophageal | | abnormality. No mediastinal mass. | | Lymph Nodes: No adenopathy. | | Upper Abdomen: No significant abnormality in the visualized upper | | abdomen. | | BODY WALL | | Soft Tissues: The soft tissues of the chest wall are unremarkable. | | Bones: No acute fracture or vertebral end plate destruction. No lytic | | or blastic lesion. | | IMPRESSION: | | Normal chest CT. No evidence of interstitial lung disease. | | Signed by: Cecelia Rand Steve | | Sign Date/Time: 09/23/2018 3:39 PM | + + + + + + + | Performing | Address | City/State/Zipcode | Phone Number | | Organization | | | | + + + + + | [facility] | [address] | [place] [address] | | + + + + + in this encounter Visit Diagnoses + + | Diagnosis | + + | ILD (interstitial lung disease) (HCC) | + + | Postinflammatory pulmonary fibrosis | + +"
--- OUTSIDE RECORDS SUMMARY | ~2018-10-01 | XMS | Encounter Summary ---
Demographics + + + | Address | [address] | | | [place] [address] | + + + | Home Phone | | + + + | Preferred Language | Unknown | + + + | Marital Status | | + + + | Scientologist Affiliation | Unknown | + + + | Race | White | + + + | Ethnic Group | Not or | + + + Author + + + | Author | [facility] | + + + | Organization | [facility] | + + + | Address | Unknown | + + + | Phone | Unavailable | + + + Support + + +---------+ + | Name | Relationship | Address | Phone | + + +---------+ + | Nunu Meléndez | ECON | Unknown | | + + +---------+ + Care Team Providers + +------+ + | Care Chief Meteorologist Name | Role | Phone | + +------+ + PCP | Unavailable | + +------+ + Encounter Details +--------+ + + + + | Date | Type | Department | Care Team | Description | +--------+ + + + + | 05/21/ | Office | [facility] | Note, Outpatient | Progress Note | | 2001 | Visit-Trans | MEDICINE | Clinic | | | | cribed | | | | +--------+ + + [...] as of this encounter Progress Notes Interface, Electric Razor Assembler In - 01/19/2006 2:25 AM PDTCLINIC DATE: 05/21/2001 OTOLARYNGOLOGY CLINIC HISTORY: Yuval returned today for followup of revision of frontal sinusotomy. His frontals are feeling quite good, and he is having a little bit of left-sided maxillary fullness. He continues to irrigate. PROCEDURE: Diagnostic nasal endoscopy. ANESTHESIA: Lidocaine 4%. DESCRIPTION OF THE PROCEDURE: A 4-mm endoscope was used to examine the nasal cavity. Endoscopic examination of the left nasal cavity shows some retained mucus in the left maxillary sinus, but the sinus is patent. The left frontal sinus is widely patent and clear. On the right side, there is a very hypoplastic right maxillary sinus that does have some patency, and the right frontal is narrow but also patent. There is a small amount of retained mucus in the right frontal sinus. ASSESSMENT AND PLAN: All sinuses are patent. The right frontal sinus is smaller than the left. The sinuses appear to be healing well. The patient will follow up in 3 weeks. Bal Medina M.D. PH / HS [id number] / [id number] / [id number] / [id number] signed by Interface, Electric Razor Assembler In at 01/19/2006 2:25 AM PDTdoc umented in this encounter Plan of Treatment Not on filedocumented as of this encounter Visit Diagnoses Not on filedocumented in this encounter"
--- OUTSIDE RECORDS SUMMARY | ~2018-10-01 | XMS | Encounter Summary ---
Demographics + + + | Address | [address] | | | [place] [address] | + + + | Home Phone | | + + + | Preferred Language | Unknown | + + + | Marital Status | | + + + | Judaism Affiliation | Unknown | + + + | Race | White | + + + | Ethnic Group | Not or | + + + Author + + + | Organization | Unknown | + + + | Address | Unknown | + + + | Phone | Unavailable | + + + Support + + +---------+ + | Name | Relationship | Address | Phone | + + +---------+ + | Nunu Meléndez | ECON | Unknown | | + + +---------+ + Care Team Providers + +------+ + | Care Supervisory Lifeguard Name | Role | Phone | + +------+ + PCP | Unavailable | + +------+ + Encounter Details +--------+ + + + + | Date | Type | Department | Care Team | Description | +--------+ + + + + | 10/12/ | Office | | Note, Outpatient | Progress Note | | 2004 | Visit-Trans | | Clinic | | | | cribed [...] as of this encounter Progress Notes Interface, Machine Fur Cleaner In - 12/01/2004 6:09 AM PDTClinic Date: 10/13/2003 Clinic: Otolaryngology History: Mr. Meléndez returns today for followup of chronic Pseudomonas sinusitis. He did have a pseudomonal flareup, which led to a pulmonary exacerbation that did require 28 days of Levaquin. Still, the use of the supplemental Pred Forte [place] has been beneficial to the patient. He does feel that there is diminished amount of purulent discharge intranasally using the Pred Forte in addition to Flonase and prednisone 5 mg every other day. Procedure: Diagnostic nasal endoscopy. Anesthesia: Lidocaine 4%. Description of Procedure: A 4-mm, 30-degree endoscope was used for nasal endoscopy. Endoscopy examination shows patency of the frontal sinuses bilaterally. The ethmoid sinuses are also clear. The right maxillary sinus is contracted without obvious purulent discharge. The left maxillary sinus is clear. There is no polyposis. Assessment and Plan: Sinuses look quite good overall and do look better than without the benefit of the topical Pred Forte spray. I favor continuing the current regimen prednisone 5 mg every other day and topical Pred Forte Nasal [place]. He will follow up in 6 months. Bal Medina M.D. Director, [facility] Coater Operator of Otolaryngology/Head and Neck Surgery PH / HS [id number] / [id number] / [id number] / cc: Lucien Alonso M.D. [address] [place] [id number] signed by Interface, Machine Fur Cleaner In at 12/01/2004 6:0 9 AM PDTdocumented in this encounter Plan of Treatment Not on filedocumented as of this encounter Visit Diagnoses Not on filedocumented in this encounter"
--- OUTSIDE RECORDS SUMMARY | ~2018-10-01 | XMS | Encounter Summary ---
Demographics + + + | Address | [address] | | | [place] [address] | + + + | Home Phone | | + + + | Preferred Language | Unknown | + + + | Marital Status | | + + + | Quaker Affiliation | Unknown | + + + | Race | White | + + + | Ethnic Group | Not or | + + + Author + + + | Author | [facility] | + + + | Organization | [facility] | + + + | Address | Unknown | + + + | Phone | Unavailable | + + + Support + + +---------+ + | Name | Relationship | Address | Phone | + + +---------+ + | Nunu Meléndez | ECON | Unknown | | + + +---------+ + Care Team Providers + +------+ + | Care Coating Mixer Supervisor Name | Role | Phone | + +------+ + PCP | Unavailable | + +------+ + Encounter Details +--------+ + + + + | Date | Type | Department | Care Team | Description | +--------+ + + + + | 04/19/ | Office | [facility] | Clinic, | Progress Note | | 2004 | Visit-Trans | | Otolaryngology | | | | cribed | | [...] as of this encounter Progress Notes Interface, Pocket Closer In - 12/01/2004 8:43 AM PDT [id number] XIOMARA [facility] Clinic Date: 04/19/2004 Clinic: Otolaryngology Mr. Meléndez returns today for followup of chronic sinusitis. Overall, he has been doing very well. I saw the patient today with Dr. Montes who performed the history, physical examination, and nasal endoscopy. Please see Dr. Montes' note for complete details of today's visit. In summary, sinuses looked very good overall. He is interested in starting Xylitol as trial. He will continue prednisone 5 mg every other day and try to taper this down. Continue Flonase and Pred Forte. Bal Medina M.D. Director, [facility] Rolling Attendant of Otolaryngology/Head and Neck Surgery PH / HS [id number] / [id number] / [id number] / [id number] documented i n this encounter Plan of Treatment Not on filedocumented as of this encounter Visit Diagnoses Not on filedocumented in this encounter"
--- OUTSIDE RECORDS SUMMARY | ~2018-10-01 | XMS | Clinical Summary ---
Demographics + + + | Address | [address] | | | [place] [address] | + + + | Home Phone | | + + + | Preferred Language | Unknown | + + + | Marital Status | | + + + | Mandaen Affiliation | Unknown | + + + | Race | White | + + + | Ethnic Group | Not or | + + + Author + + + | Author | [facility] | + + + | Organization | [facility] | + + + | Address | Unknown | + + + | Phone | Unavailable | + + + Support + + +---------+ + | Name | Relationship | Address | Phone | + + +---------+ + | Nunu Meléndez | ECON | Unknown | | + + +---------+ + Care Team Providers + +------+ + | Care Compressor Engineer Name | Role | Phone | + +------+ + PP | Unavailable | + +------+ + Source Comments [facility]NOFRE is fully live on both [facility] Ambulatory and [facility] InPatient.[facility] Allergies Not on File Medications + + + +---------+------+------+-------+ | Medication | Sig | Dispensed | Refills | Star | End | Statu | | | | | | t | Date | s | | | | | | Date | | | + + + +---------+------+------+-------+ | PREDNISONE 5 MG | see comments | | 0 | 01/0 | | Activ | | ORAL TAB | | | | 19 | | e | | | | | | 00 | | | + + + +---------+------+------+-------+ Active Problems Not on file Social History + +-------+ +--------+------+ | Tobacco [...] recent travel history available. | + + Plan of Treatment + + + + + | Health Maintenance | Due Date | Last Done | Comments | + + + + + | Pneumococcal (Adult) | | | | | (1 of 2 - PCV13) | 7 | | | + + + + + | Influenza (Flu) | | | | | vaccination (Season | 9 | | | | Ended) | | | | + + + + + Results Not on filefrom Last 3 Months Insurance + +--------+ +--------+ + +------+ | Payer | Benefi | Subscriber | Effect | Phone | Address | Type | | | t Plan | ID | emily | | | | | | / | | Dates | | | | | | Group | | | | | | + +--------+ +--------+ + +------+ | [employer]UE [employer] BLUE | REGENC | xxxxxxxxxxx | 08/06/19 | [phone] | [address] | PPO | | SHIELD | E [employer]BS | x | 18-Pre | 8 | [id number] | | | | | | sent | | [place], | | | | | | | | [place] | | | | | | | | [address] | | + +--------+ +--------+ + +------+ + +--------+ +--------+ + + | Guarantor Name | Accoun | Relation to | Date | Phone | Billing Address | | | t Type | Patient | of | | | | | | | | | | + +--------+ +--------+ + + | Neil Meléndez | Person | Self | [birth year] | [address] | | | [place] | | 1941 | [phone] | [place] | | | lu | | | 5 (Home) | [address] | + +--------+ +--------+ + +"
--- OUTSIDE RECORDS SUMMARY | ~2018-10-01 | XMS | Encounter Summary ---
Demographics + + + | Address | [address] | | | [place] [address] | + + + | Home Phone | | + + + | Preferred Language | Unknown | + + + | Marital Status | | + + + | Jewish Affiliation | Unknown | + + + [...] Team Providers + +------+ + | Care Radiator Mechanic Name | Role | Phone | + +------+ + PCP | Unavailable | + +------+ + Encounter Details +--------+ + + + + | Date | Type | Department | Care Team | Description | +--------+ + + + + | 01/12/ | Office | | Note, Outpatient | Progress Note | | 2003 | Visit-Trans | | Clinic | | [...] as of this encounter Progress Notes Interface, Automatic Serging Machine Operator In - 10/20/2005 3:03 AM PDTCLINIC DATE: 01/12/2003 OTOLARYNGOLOGY CLINIC HISTORY: Neil returns today for followup of chronic sinusitis. He has had improvement with the Septra, ALTHOUGH HE DEVELOPED SOME SYMPTOMS SUGGESTIVE OF MEDICATION ALLERGY TO SULFA. THESE INCLUDED SOME RASH. His nasal discharge has changed from purulent to more clear in color. CT scan of sinuses shows pneumatization of both frontal sinuses with some mucosal thickening bilaterally. The maxillary sinuses show both contraction and postsurgical changes with opacification of the posterior aspect of maxillary sinuses. It is unclear whether this represents involution of premaxillary soft tissue or true maxillary sinus mucosal disease. PROCEDURE: Diagnostic nasal endoscopy. ANESTHESIA: Lidocaine 4%. DESCRIPTION OF PROCEDURE: A 4-mm 30-degree endoscope was used to examine the nasal cavity. Examination shows improvement in overall degree of mucosal edema. Frontal recesses are patent bilaterally. Ethmoids are clear. The maxillary sinuses are contracted, but there is no active drainage or purulent discharge. ASSESSMENT AND PLAN: Overall the patient is improved. He appears to require ongoing control of inflammation in the nose, and I feel that he may benefit from a trial of half-strength Biaxin and ( ). If we are not able to manage him symptomatically, we may need to reexamine the possibility of revision of the maxillary sinuses bilaterally. Bal Medina M.D. PH / HS [id number] / [id number] / [id number] / [id number] Tdocumented in this encounter Plan of Treatment Not on filedocumented as of this encounter Visit Diagnoses Not on filedocumented in this encounter"
--- OUTSIDE RECORDS SUMMARY | ~2018-10-01 | XMS | Encounter Summary ---
Demographics + + + | Address | [address] | | | [place] [address] | + + + | Home Phone | | + + + | Preferred Language | Unknown | + + + | Marital Status | | + + + | Episcopal Affiliation | Unknown | + + + [...] | + + +---------+ + | Nunu Solano | ECON | Unknown | | + + +---------+ + Care Team Providers + +------+ + | Care Supervisor Beam Department Name | Role | Phone | + +------+ + PCP | Unavailable | + +------+ + Encounter Details +--------+ + + + + | Date | Type | Department | Care Team | Description | +--------+ + + + + | 01/05/ | Transcribed | | Dictation, Other | Transcribed | | 2001 | | | | | +--------+ + [...] as of this encounter Progress Notes Interface, Parts Data Writer In - 02/09/2006 2:25 AM [facility] [place] [address] [place], [place] [address] or Department of Otolaryngology - PV01 January 05, 2001 Mr. Solano [address] [place] [address] RE: RUPERTO SOLANO MR #: [id number] Dear Mr. Solano: Dr. Bal Medina who is the head of our section who specializes in sinus disease is to see you within the next 2-4 weeks. If you could give his office a call at to set up an appointment, I would be grateful. It will be important that you bring with you at the time of your appointment the x-rays which we returned to you at the last visit. Once you have seen Dr. Medina, he and I will talk with respect to what would constitute the best management for your sinus condition and arrive at an appropriate plan. Please give me a call if you have any concerns. Yours sincerely, Carlos Martinez M.D. [facility] / [id number] / [id number] / [id number] / [id number] cc: Bal Medina M.D. [id number] signed by Interface, Parts Data Writer In at 02/09/2006 2:25 AM PDTdocume nted in this encounter Plan of Treatment Not on filedocumented as of this encounter Visit Diagnoses Not on filedocumented in this encounter"
--- OUTSIDE RECORDS SUMMARY | ~2018-10-01 | XMS | Encounter Summary ---
Demographics + + + | Address | [address] | | | [place] [address] | + + + | Home Phone | | + + + | Preferred Language | Unknown | + + + | Marital Status | | + + + | Baptism Affiliation | Unknown | + + + | Race | White | + + + | Ethnic Group | Not or | + + + Author + + + | Author | [facility] | + + + | Organization | [facility] | + + + | Address | Unknown | + + + | Phone | Unavailable | + + + Support + + +---------+ + | Name | Relationship | Address | Phone | + + +---------+ + | Nunu Meléndez | ECON | Unknown | | + + +---------+ + Care Team Providers + +------+ + | Care Rag Baler Name | Role | Phone | + +------+ + PCP | Unavailable | + +------+ + Encounter Details +--------+ + + + + | Date | Type | Department | Care Team | Description | +--------+ + + + + | 08/13/ | Results | Otolaryngology | Bal Medina [address] | | | 2001 | Only | Laryngology Services | [address] | | | | | at [address] | [address] [facility] [facility] | | | | | [address] [address] | [place] [address] | | | | | Road Mailcode: PV01 | | | | | | Physician's | | | | | | [place] | | | | | | [place] [address] | | | | | | [phone] | | | +--------+ + + + [...] + + documented as of this encounter Plan of Treatment Not on filedocumented as of this encounter Procedures + +--------+ + + + | Procedure Name | Priori | Date/Time | Associated Diagnosis | Comments | | | ty | | | | + +--------+ + + + | FUNGUS PRELIMINARY 1 | Routin | 08/13/2001 | | Results for this | | | e | 1:45 PM | | procedure are in the | | | | PDT | | results section. | + +--------+ + + + | FUNGAL SMEAR ONLY | Routin | 08/13/2001 | | Results for this | | | e | 1:45 PM | | procedure are in the | | | | PDT | | results section. | + +--------+ + + + | CULTURE, FUNGAL & | Routin | 08/13/2001 | | Results for this | | SMEAR | e | 1:45 PM | | procedure are in the | | | | PDT | | results section. | + +--------+ + + + | CULTURE, SINUS BACTI | Routin | 08/13/2001 | | Results for this | | & GS | e | 1:45 PM | | procedure are in the | | | | PDT | | results section. | + +--------+ + + + documented in this encounter Results CULTURE, SINUS BACTI & GS (08/13/2001 1:45 PM PDT) + + + + + + | Component | Value | Ref Range | Performed | Pathologist | | | | | At | Signature | + + + + + + | SOURCE BODY | Frontal Sinus | | | | | SITE | | | | | + + + + + + | CULTURE | Sinus Culture | | | | | RESULT | | | | | | | Source...............: | | | | | | Frontal Sinus RLB Gram | | | | | | Stain...........: 1+ | | | | | | PMN's | | | | | | | | | | | | Rare Gram | | | | | | positive bacilli | | | | | | | | | | | | Culture: | | | | | | 3+ Corynebacteriu | | | | | | m | | | | | | sp. | | | | | | | | | | | | Final | | | | | | ID | | | | | | Mixed gram | | | | | | positive | | | | | | growth | | | | | | | | | | | | PrelimID | | | | | | 1+ | | | | | | Coagulase negative Staph | | | | | | | | | | | | species | | | | | | F | | | | | | inal ID Final | | | | | | Report | | | | + + + + + + + + | Specimen | + + | | + + + + + + + | Performing | Address | City/State/Zipcode | Phone Number | | Organization | | | | + + + + + | [facility] | [address] | [place] [address] | | | LAB-MICRO | | | | + + + + + CULT, FUNGAL (& SMEAR) (08/13/2001 1:45 PM PDT) + + + + + + | Component | Value | Ref Range | Performed | Pathologist | | | | | At | Signature | + + + + + + | SOURCE BODY | Frontal Sinus | | | | | SITE | | | | | + + + + + + | CULTURE | Fungus Culture | | | | | RESULT | Culture Source | | | | | | ....: Frontal Sinus | | | | | | | | | | | | Smear..............: | | | | | | No fungus or yeast seen | | | | | | Preliminary | | | | | | 1......: Fungus NOT | | | | | | detected at 2 weeks RLB | | | | | | Final Report: Fungus | | | | | | NOT isolated after 4 | | | | | | weeks. | | | | + + + + + + + + | Specimen | + + | | + + + + + + + | Performing | Address | City/State/Zipcode | Phone Number | | Organization | | | | + + + + + | [facility] | [address] | [place] [address] | | | LAB-MICRO | | | | + + + + + FUNGUS PRELIMINARY 1 (08/13/2001 1:45 PM PDT) + + + + + + | Component | Value | Ref Range | Performed | Pathologist | | | | | At | Signature | + + + + + + | PRELIM | Fungus NOT detected at 2 | | | | | FUNGAL ISOL | weeks | | | | + + + + + + + + | Specimen | + + | | + + + + + + + | Performing | Address | City/State/Zipcode | Phone Number | | Organization | | | | + + + + + | [facility] | [address] | [place] [address] | | | LAB-MICRO | | | | + + + + + FUNGAL SMEAR ONLY (08/13/2001 1:45 PM PDT) + + + + + + | Component | Value | Ref Range | Performed | Pathologist | | | | | At | Signature | + + + + + + | CALCOFLUOR | No fungus or yeast seen | | | | | WHITE STAIN | | | | | | ONLY | | | | | + + + + + + | SOURCE BODY | Frontal Sinus | | | | | SITE | | | | | + + + + + + + + | Specimen | + + | | + + + + + + + | Performing | Address | City/State/Zipcode | Phone Number | | Organization | | | | + + + + + | [facility] | [address] | [place] [address] | | | LAB-MICRO | | | | + + + + + documented in this encounter Visit Diagnoses Not on filedocumented in this encounter"
--- OUTSIDE RECORDS SUMMARY | ~2018-10-01 | XMS | Encounter Summary ---
Demographics + + + | Address | [address] | | | [place] [address] | + + + | Home Phone | | + + + | Preferred Language | Unknown | + + + | Marital Status | | + + + | Cheondoism Affiliation | Unknown | + + + | Race | White | + + + | Ethnic Group | Not or | + + + Author + + + | Author | [facility] | + + + | Organization | [facility] | + + + | Address | Unknown | + + + | Phone | Unavailable | + + + Support + + +---------+ + | Name | Relationship | Address | Phone | + + +---------+ + | Nunu Meléndez | ECON | Unknown | | + + +---------+ + Care Team Providers + +------+ + | Care Scout Executive Name | Role | Phone | + +------+ + PCP | Unavailable | + +------+ + Encounter Details +--------+ + + + + | Date | Type | Department | Care Team | Description | +--------+ + + + + | 12/16/ | Results | Otolaryngology | Bal Medina [address] | | | 2002 | Only | Laryngology Services | [address] | | | | | at [facility] [address] | [address] [facility] | | | | | [place] | [place] [address] | | | | | Road Mailcode: PV01 | | | | | | Physician's | | | | | | [place] | | | | | | [place] [address] | | | | | | [phone] | | | +--------+ + + + [...] | FUNGUS PRELIMINARY 1 | Routin | 12/16/2002 | | Results for this | | | e | 3:45 PM | | procedure are in the | | | | PDT | | results section. | + +--------+ + + + | FUNGAL SMEAR ONLY | Routin | 12/16/2002 | | Results for this | | | e | 3:45 PM | | procedure are in the | | | | PDT | | results section. | + +--------+ + + + | CULTURE, FUNGAL & | Routin | 12/16/2002 | | Results for this | | SMEAR | e | 3:45 PM | | procedure are in the | | | | PDT | | results section. | + +--------+ + + + | CULTURE, SINUS BACTI | Routin | 12/16/2002 | | Results for this | | & GS | e | 3:45 PM | | procedure are in the | | | | PDT | | results section. | + +--------+ + + + documented in this encounter Results CULTURE, SINUS BACTI & GS (12/16/2002 3:45 PM PDT) + + + + + + | Component | Value | Ref Range | Performed | Pathologist | | | | | At | Signature | + + + + + + | SOURCE BODY | Right Maxillary Sinus | | | | | SITE | | | | | + + + + + + | CULTURE | Sinus Culture | | | | | RESULT | | | | | | | Source...............: | | | | | | Right Maxillary Sinus | | | | | | RLB Gram | | | | | | Stain...........: | | | | | | MODERATE | | | | | | PMN's | | | | | | | | | | | | MODERATE | | | | | | Gram negative bacillus | | | | | | | | | | | | Culture: 2+ | | | | | | Pseudomonas | | | | | | aeruginosa | | | | | | | | | | | | Final | | | | | | ID No | | | | | | n-enteric gram negative | | | | | | bacilli | | | | | | Preli | | | | | | m ID 1 colony | | | | | | Streptococcus, viridans | | | | | | group | | | | | | Final ID | | | | | | 1 colony | | | | | | Propionobacterium | | | | | | acnes | | | | | | | | | | | | Final ID | | | | | | | | | | | | Ps | | | | | | aerugin Ceftazidime | | | | | | S Cipro | | | | | | floxacin S | | | | | | Gentamicin | | | | | | | | | | | | S Piperacillin | | | | | | | | | | | | S Timentin | | | | | | | | | | | | S Tobramycin | | | | | | | | | | | | S Trimeth/Sulfa | | | | | | R Final Report | | | | + + + + + + + + | Specimen | + + | | + + + + + + + | Performing | Address | City/State/Zipcode | Phone Number | | Organization | | | | + + + + + | [facility] | [address] | [place] [address] | | | LAB-MICRO | | | | + + + + + CULT, FUNGAL (& SMEAR) (12/16/2002 3:45 PM PDT) + + + + + + | Component | Value | Ref Range | Performed | Pathologist | | | | | At | Signature | + + + + + + | SOURCE BODY | Right Maxillary Sinus | | | | | SITE | | | | | + + + + + + | CULTURE | Fungus Culture | | | | | RESULT | Culture Source | | | | | | ....: Right | | | | | | Maxillary Sinus | | | | | | [...] | + + + + + | [facility] | [address] | [place] [address] | | | LAB-MICRO | | | | + + + + + FUNGUS PRELIMINARY 1 (12/16/2002 3:45 PM PDT) + + + + + [...] + + + | [facility] | [address] | [place] [address] | | | LAB-MICRO | | | | + + + + + FUNGAL SMEAR ONLY (12/16/2002 3:45 PM PDT) + + + + + [...] + + + | SOURCE BODY | Right Maxillary Sinus | | | | | SITE | | | | | + + + + + + + + | Specimen | + + | | + + + + + + + | Performing | Address | City/State/Zipcode | Phone Number | | Organization | | | | + + + + + | [facility] | [address] | [place] [address] | | | LAB-MICRO | | | | + + + + + documented in this encounter Visit Diagnoses Not on filedocumented in this encounter"
--- OUTSIDE RECORDS SUMMARY | ~2018-10-01 | XMS | Encounter Summary ---
Demographics + + + | Address | [address] | | | [place] [address] | + + + | Home Phone [...] Team Providers + +------+ + | Care Professor Of Visual Arts Name | Role | Phone | + +------+ + PCP | Unavailable | + +------+ + Encounter Details +--------+ + + + + | Date | Type | Department | Care Team | Description | +--------+ + + + + | 01/12/ | Results | Otolaryngology | [address] Medina [address] | | | 2002 | Only | Laryngology Services | [address] | | | | | at [facility] [address] | [address] [facility] | | | | | [place] | [place] [address] | | | | | Road Mailcode: PV01 | | | | | | Physician's | | | | | | [place] | | | | | | [place] [address] | | | | | | [phone] | | | +--------+ + + + [...] + +--------+ + + + | CT SINUS WO CONTRAST | Routin | 01/12/2003 | | Results for this | | ROUTINE | e | 7:28 AM | | procedure are in the | | | | PDT | | results section. | + +--------+ + + + documented in this encounter Results CT SINUS SIRISHA PROTOCOL WO (01/12/2003 7:28 AM PDT) + + + + + + | Component | Value | Ref Range | Performed | Pathologist | | | | | At | Signature | + + + + + + | CT SINUS | Radiologist 1: MICHELLE, | | | | | SIRISHA | JADE Nunez M.D.CT | | | | | PROTOCOL WO | PARANASAL | | | | | | SINUSES: 01/12/2003 | | | | | | Dictated 01/12/2003 | | | | | | CLINICAL | | | | | | INFORMATION: Rule out | | | | | | infection. | | | | | | TECHNIQUE: Axial and | | | | | | coronal images were | | | | | | obtained through | | | | | | theparanasal sinuses | | | | | | without intravenous | | | | | | contrast and compared to | | | | | | thestudy of 04/20/2001. | | | | | | FINDINGS: As seen on | | | | | | the prior study, the | | | | | | patient is status | | | | | | postbilateral | | | | | | uncinectomy, middle | | | | | | turbinate resection, | | | | | | internalethmoidectomy, | | | | | | and Drummond-Quan | | | | | | procedures. There is | | | | | | improvedaeration of the | | | | | | frontal sinuses, now | | | | | | with peripheral | | | | | | mucosalthickening but | | | | | | air within the | | | | | | lumen. There is more | | | | | | air in the lumenof the | | | | | | maxillary sinuses than | | | | | | on the prior study but | | | | | | the maxillarysinuses | | | | | | remain nearly completely | | | | | | opacified. The | | | | | | osseous zavala of | | | | | | themaxillary sinuses are | | | | | | thickened as on the | | | | | | prior study. There | | | | | | isminimal mucosal | | | | | | thickening in the | | | | | | ethmoid and a small | | | | | | amount of fluidin the | | | | | | sphenoid, less than on | | | | | | the prior | | | | | | study. There is no | | | | | | mass inthe nasal cavity. | | | | | | IMPRESSION: Improved | | | | | | aeration but persistent | | | | | | disease in the paranasal | | | | | | sinuses,status post | | | | | | Drummond-Quan procedures | | | | | | and functional | | | | | | endoscopic sinussurgery. | | | | | | END OF IMPRESSION: | | | | + + + + + + + + | Specimen | + + | | + + + +---------+ + + | Performing | Address | City/State/Zipcode | Phone Number | | Organization | | | | + +---------+ + + | [facility] DEPARTMENT OF | | | | | RADIOLOGY | | | | + +---------+ + + documented in this encounter Visit Diagnoses Not on filedocumented in this encounter"
--- OUTSIDE RECORDS SUMMARY | ~2018-10-01 | XMS | Clinical Summary ---
Demographics + + + | Address | [address] | | | [place] [address] | + + + | Home Phone | | + + + | Preferred Language | Unknown | + + + | Marital Status | | + + + | Nondenominational Affiliation | Unknown | + + + | Race | White | + + + | Ethnic Group | Not or | + + + Author + + + | Author | [facility] | + + + | Organization | [facility] | + + + | Address | Unknown | + + + | Phone | Unavailable | + + + Support + + +---------+ + | Name | Relationship | Address | Phone | + + +---------+ + | Nunu Meléndez | ECON | Unknown | | + + +---------+ + Care Team Providers + +------+ + | Care Director Translation Name | Role | Phone | + +------+ + PP | Unavailable | + +------+ + Source Comments ONOFRE is fully live on both [facility] Ambulatory and [facility] InPatient.[facility] Allergies Not on File Medications + + [...] | x | 18-Pre | 8 | [address] | | | | | | sent | | [place], | | | | | | | | [place] | | | | | | | | [address] | | + +--------+ +--------+ + +------+ + +--------+ +--------+ + + | Guarantor Name | Accoun | Relation to | Date | Phone | Billing Address | | | t Type | Patient | of | | | | | | | | | | + +--------+ +--------+ + + | Neil Meléndez | Person | Self | [birth year] | | [address] | | | [place] | | 1941 | [phone] | [place] | | | lu | | | [address] (Home) | [address] | + +--------+ +--------+ + +"
--- OUTSIDE RECORDS SUMMARY | ~2018-10-01 | XMS | Encounter Summary ---
Demographics + + + | Address | [address] | | | [place] [address] | + + + | Home Phone | | + + + | Preferred Language | Unknown | + + + | Marital Status | | + + + | Hoahaoism Affiliation | Unknown | + + + | Race | White | + + + | Ethnic Group | Not or | + + + Author + + + | Author | [facility] | + + + | Organization | [facility] | + + + | Address | Unknown | + + + | Phone | Unavailable | + + + Support + + +---------+ + | Name | Relationship | Address | Phone | + + +---------+ + | Nunu Meléndez | ECON | Unknown | | + + +---------+ + Care Team Providers + +------+ + | Care Moving Consultant Name | Role | Phone | + +------+ + PCP | Unavailable | + +------+ + Encounter Details +--------+ + + + + | Date | Type | Department | Care Team | Description | +--------+ + + + + | 11/17/ | Office | [facility] | Note, [...] as of this encounter Progress Notes Interface, Demographer In - 12/26/2005 1:05 AM PDTCLINIC DATE: 11/17/2001 OTOLARYNGOLOGY CLINIC HISTORY: Yuval returns today for a followup of chronic frontal sinusitis. He has some mild discharge throughout the day, but this tends to respond to irrigations. He clears his sinuses fairly well. Overall, he is very happy with the status of the sinuses. PROCEDURE: Diagnostic nasal endoscopy. ANESTHESIA: Lidocaine 4%. DESCRIPTION OF PROCEDURE: A 4-mm endoscope was used to examine the nasal cavity. Examination shows bilateral patent frontal sinuses. There is some opaque white mucous drainage from the left frontal sinus. The remainder of the sinuses are widely patent and clear. The frontals are patent bilaterally. ASSESSMENT AND PLAN: The patient does have some mucoid discharge, left greater than right. We will begin some sinus irrigations, and we will also use a trial of xylitol nasal spray. He will follow up in 4 months. That will be near his 1-year anniversary of surgery. Bal Medina M.D. PH / HS [id number] / [id number] / [id number] / Tdocumented in this encounter Plan of Treatment Not on filedocumented as of this encounter Visit Diagnoses Not on filedocumented in this encounter"
--- OUTSIDE RECORDS SUMMARY | ~2018-10-01 | XMS | Encounter Summary ---
Demographics + + + | Address | [address] | | | [place] [address] | + + + | Home Phone | | + + + | Preferred Language | Unknown | + + + | Marital Status | | + + + | Baptist Affiliation | Unknown | + + + | Race | White | + + + | Ethnic Group | Not or | + + + Author + + + | Author | [facility] | + + + | Organization | [facility] | + + + | Address | Unknown | + + + | Phone | Unavailable | + + + Support + + +---------+ + | Name | Relationship | Address | Phone | + + +---------+ + | Nunu Meléndez | ECON | Unknown | | + + +---------+ + Care Team Providers + +------+ + | Care Jukebox Routeman Name | Role | Phone | + +------+ + PCP | Unavailable | + +------+ + Encounter Details +--------+ + + + + | Date | Type | Department | Care Team | Description | +--------+ + + + + | 04/20/ | Results | Otolaryngology | [address] | | | 2000 | Only | Laryngology Services | [address] | | | | | at [facility] [address] | [facility]par[facility] | | | | | [address] | [place] [address] | | | | | [address] Mailcode: [address] | | | | | | Physician's | | | | | | [place] | | | | | | [place] [address] | | | | | | [phone] | | | +--------+ + + + [...] | + +--------+ + + + | SURGICAL PATHOLOGY | Routin | 04/21/2001 | | Results for this | | | e | | | procedure are in the | | | | | | results section. | + +--------+ + + + | CT SINUSES WO | Routin | 04/20/2001 | | Results for this | | CONTRAST | e | 1:00 PM | | procedure are in the | | | | PST | | results section. | + +--------+ + + + documented in this encounter Results SURGICAL PATHOLOGY (04/21/2001) + + + + + + | Component | Value | Ref Range | Performed | Pathologist | | | | | At | Signature | + + + + + + | SURGICAL | SOURCE OF SPECIMEN:A | | [facility] | | | PATHOLOGY | Right sinus | | DEPARTMENT | | | | contentsSOURCE OF | | OF | | | | SPECIMEN:B Left sinus | | PATHOLOGY | | | | contents Final | | | | | | Pathologic | | | | | | Diagnosis:A: Sinus | | | | | | (right), contents | | | | | | removal: - Upper | | | | | | respiratory tract | | | | | | epithelium: Chronic | | | | | | inflammation - | | | | | | Bone: Within normal | | | | | | limits B: Sinus (left), | | | | | | contents | | | | | | removal: - Upper | | | | | | respiratory tract | | | | | | epithelium: Chronic | | | | | | inflammation - | | | | | | Bone: Within normal | | | | | | limits Case reviewed | | | | | | by:Antionette Parikh /Student | | | | | | FellowT. Cecelia Booker | | | | | | /PathologistT:04/23/01/f | | | | | | I have reviewed all | | | | | | diagnostic slides and | | | | | | have edited the gross | | | | | | and/ormicroscopic | | | | | | portion of this report | | | | | | as part of my pathologic | | | | | | assessment andfinal | | | | | | diagnosis. Clinical | | | | | | History:Chronic | | | | | | sinusitis. Gross | | | | | | Description:Two | | | | | | specimens are received | | | | | | in formalin. | | | | | | Note: The specimen | | | | | | requisition and | | | | | | container label as | | | | | | received | | | | | | arereversed: Requisit | | | | | | ion: A - right sinus, B | | | | | | - left sinus. Container | | | | | | labels:A - left | | | | | | sinus, B - right | | | | | | sinus. The specimen | | | | | | containers are | | | | | | relabeledaccording to | | | | | | the requisition | | | | | | designation. A: Right | | | | | | sinus | | | | | | contents: Received | | | | | | are irregular fragments | | | | | | of soft, tantissue and | | | | | | red bone, which measure | | | | | | 1.0 x 1.0 x 0.3 cm in | | | | | | aggregate. B: Left | | | | | | sinus contents: Received | | | | | | are irregular fragments | | | | | | of soft, tantissue and | | | | | | red bone, which measure | | | | | | 0.8 x 0.8 x 0.3 cm in | | | | | | aggregate. Cassette | | | | | | Index:A: Right sinus | | | | | | contents:A1, wrapped, | | | | | | , may need surface | | | | | | decalcificationB: Lef | | | | | | t sinus contents:B1, | | | | | | wrapped, , may need | | | | | | surface | | | | | | decalcificationSP/TD/TH/ | | | | | | fRendering | | | | | | Diagnostician: T. | | | | | | Ade | | | | | | CeceliaPathologistElectroni | | | | | | huy Signed | | | | | | 04/23/2001Comment: | | | | | | SOURCE OF SPECIMEN: | | | | | | Right sinus | | | | | | contents-Left sinus | | | | | | contents | | | | + + + + + + + + | Specimen | + + | | + + + + + + + | Performing | Address | City/State/Zipcode | Phone Number | | Organization | | | | + + + + + | [facility] | [address] | [place] [address] | | | PATHOLOGY | [address] | | | + + + + + | [facility] | [address] | [facility] [place] [address] | | | PATHOLOGY | [address] | | | + + + + + CT SINUSES WO CONTRAST (04/20/2001 1:00 PM PST) + + + + + + | Component | Value | Ref Range | Performed | Pathologist | | | | | At | Signature | + + + + + + | CT SINUSES | Radiologist 1: ANGIE, | | | | | PARANASAL | Cecelia HARRIS-Radiologist | | | | | WO CONTRAST | 2: NAVYA RECIO | | | | | | | | | | | | CT: 04/20/2001 Dic | | | | | | tated 04/21/2001 | | | | | | CLINICAL INFORMATION: | | | | | | This is a 60-year-old | | | | | | patient, status post | | | | | | sinussurgery. | | | | | | COMPARISON: None. | | | | | | TECHNIQUE: Noncontrast | | | | | | axial and coronal 3 mm | | | | | | contiguous axial | | | | | | sliceswere obtained. | | | | | | FINDINGS: The patient is | | | | | | status post | | | | | | [place] | | | | | | surgery,uncinectomy, | | | | | | ethmoidectomy and | | | | | | removal of the middle | | | | | | and | | | | | | superiorturbinates. T | | | | | | he frontal sinus, the | | | | | | residual anterior | | | | | | ethmoid aircells, as | | | | | | well as the maxillary | | | | | | sinuses are completely | | | | | | opacified.Mucosal | | | | | | thickening is also seen | | | | | | in the sphenoid sinus | | | | | | with possiblesmall | | | | | | amount of fluid in the | | | | | | left recess of the | | | | | | sphenoid sinus. The | | | | | | mastoids are | | | | | | unremarkable. There | | | | | | is remodeling of the | | | | | | middle andposterior | | | | | | zavala of both maxillary | | | | | | sinuses, indicative for | | | | | | chronicsinus | | | | | | inflammatory process. | | | | | | The orbital structures | | | | | | are normal. IMPRESSION: | | | | | | Status post extensive | | | | | | sinus surgery with | | | | | | persistent | | | | | | chronicpansinusitis. END | | | | | | OF IMPRESSION: | | | | + + + + + + + + | Specimen | + + | | + + + +---------+ + + | Performing | Address | City/State/Zipcode | Phone Number | | Organization | | | | + +---------+ + + | [facility] DEPARTMENT OF | | | | | RADIOLOGY | | | | + +---------+ + + documented in this encounter Visit Diagnoses Not on filedocumented in this encounter"
--- OUTSIDE RECORDS SUMMARY | ~2018-10-01 | XMS | Encounter Summary ---
Demographics + + + | Address | [address] | | | [place] [address] | + + + | Home Phone | | + + + | Preferred Language | Unknown | + + + | Marital Status | | + + + | Congregational Affiliation | Unknown | + + + [...] Team Providers + +------+ + | Care Vulnerability Assessment Analyst Name | Role | Phone | + +------+ + PCP | Unavailable | + +------+ + Encounter Details +--------+ + + + + | Date | Type | Department | Care Team | Description | +--------+ + + + + | 12/03/ | Abstract | | | | | 2005 | | | | | +--------+ + [...]
--- OUTSIDE RECORDS SUMMARY | ~2018-10-01 | XMS | Encounter Summary ---
Demographics + + + | Address | [address] | | | [place] [address] | + + + | Home Phone | | + + + | Preferred Language | Unknown | + + + | Marital Status | | + + + | Sikhism Affiliation | Unknown | + + + | Race | White | + + + | Ethnic Group | Not or | + + + Author + + + | Author | [facility] | + + + | Organization | [facility] | + + + | Address | Unknown | + + + | Phone | Unavailable | + + + Support + + +---------+ + | Name | Relationship | Address | Phone | + + +---------+ + | Nunu Meléndez | ECON | Unknown | | + + +---------+ + Care Team Providers + +------+ + | Care Directory Carrier Name | Role | Phone | + +------+ + PCP | Unavailable | + +------+ + Encounter Details +--------+ + + + + | Date | Type | Department | Care Team | Description | +--------+ + + + + | 08/13/ | Office | [facility] | Note, [...] documented as of this encounter Progress Notes Tammy, Litigation Specialist In - 01/07/2006 4:38 AM PDTCLINIC DATE: 08/13/2001 OTOLARYNGOLOGY CLINIC HISTORY: Neli returns today for followup of sinusitis. He has had slightly increased amount of nasal discharge over the last several weeks. PROCEDURE: Diagnostic nasal endoscopy. ANESTHESIA: Lidocaine 4%. DESCRIPTION OF THE PROCEDURE: The 4-mm endoscope was used for nasal endoscopy. Endoscopy examination of the left nasal cavity shows a small but patent opening to the frontal with some milky white fluid draining from the frontal sinus. This was cultured. The right nasal cavity shows mild mucosal thickening but a small patent frontal sinus. The remainder of the sinuses are clear. ASSESSMENT AND PLAN: There is some focal inflammation and infection in the frontal area, but the sinus remains patent. He is placed on prednisone and Augmentin samples and will contact us next week for culture results. He will follow up in 4 months. Bal Medina M.D. PH / HS [id number] / [id number] / [id number] / [id number] signed by Tammy, Litigation Specialist In at 01/07/2006 4:38 AM PDTdoc umented in this encounter Plan of Treatment Not on filedocumented as of this encounter Visit Diagnoses Not on filedocumented in this encounter"
--- OUTSIDE RECORDS SUMMARY | ~2018-10-01 | XMS | Encounter Summary ---
Demographics + + + | Address | [address] | | | [place] [address] | + + + | Home Phone [...] + + + | Author | [facility] | + + + | Organization | [facility] | + + + | Address | Unknown | + + + | Phone | Unavailable | + + + Support + + +---------+ + | Name | Relationship | Address | Phone | + + +---------+ + | Nunu Meléndez | ECON | Unknown | | + + +---------+ + Care Team Providers + +------+ + | Care Wool Hat Forming Machine Tender Name | Role | Phone | + +------+ + PCP | Unavailable | + +------+ + Encounter Details +--------+ + + + + | Date | Type | Department | Care Team | Description | +--------+ + + + + | 09/16/ | Results | Otolaryngology | [address] | | | 2002 | Only | Laryngology Services | [address] | | | | | at [facility] [address] | [facility] | | | | | [address] | [place] [address] | | | | | Road Mailcode: [address] | | | | | | Physician's | | | | | | [place] | | | | | | [place] [address] | | | | | | [phone] | | | +--------+ + + + [...] | FUNGUS PRELIMINARY 1 | Routin | 09/16/2002 | | Results for this | | | e | 12:00 PM | | procedure are in the | | | | PDT | | results section. | + +--------+ + + + | FUNGAL SMEAR ONLY | Routin | 09/16/2002 | | Results for this | | | e | 12:00 PM | | procedure are in the | | | | PDT | | results section. | + +--------+ + + + | CULTURE, FUNGAL & | Routin | 09/16/2002 | | Results for this | | SMEAR | e | 12:00 PM | | procedure are in the | | | | PDT | | results section. | + +--------+ + + + | CULTURE, SINUS BACTI | Routin | 09/16/2002 | | Results for this | | & GS | e | 12:00 PM | | procedure are in the | | | | PDT | | results section. | + +--------+ + + + documented in this encounter Results CULTURE, SINUS BACTI & GS (09/16/2002 12:00 PM PDT) + + + + + + | Component | Value | Ref Range | Performed | Pathologist | | | | | At | Signature | + + + + + + | SOURCE BODY | Right Maxillary | | | | | SITE | | | | | + + + + + + | CULTURE | Sinus Culture | | | | | RESULT | | | | | | | Source...............: | | | | | | Right Maxillary RLB | | | | | | Gram Stain...........: | | | | | | Rare | | | | | | PMN's | | | | | | | | | | | | 2+ Gram | | | | | | negative | | | | | | bacillus | | | | | | | | | | | | Rare | | | | | | Gram positive | | | | | | cocci | | | | | | Culture: 3+ | | | | | | Pseudomonas | | | | | | aeruginosa | | | | | | | | | | | | Final | | | | | | ID Ps | | | | | | eudomonas | | | | | | species | | | | | | | | | | | | | | | | | | Prelim ID | | | | | | 3+ Pseudo | | | | | | monas | | | | | | aeruginosa | | | | | | | | | | | | Final ID | | | | | | 1+ Coagulase | | | | | | negative Staph | | | | | | species | | | | | | F | | | | | | inal ID | | | | | | Staphylococcus | | | | | | species | | | | | | | | | | | | Preli | | | | | | m ID | | | | | | | | | | | | Ps | | | | | | aerugin Ps | | | | | | aerugin Ceftazidime | | | | | | S | | | | | | | | | | | | S Ciprofloxacin | | | | | | S | | | | | | | | | | | | S Gentamicin | | | | | | | | | | | | S | | | | | | S Piperacillin | | | | | | | | | | | | S | | | | | | S Timentin | | | | | | | | | | | | S | | | | | | I Tobramycin | | | | | | | | | | | | S | | | | | | S Trimeth/Sulfa | | | | | | R | | | | | | R Final Report | | | | + + + + + + + + | Specimen | + + | | + + + + + + + | Performing | Address | City/State/Zipcode | Phone Number | | Organization | | | | + + + + + | [facility] | [address] | [place] [address] | | | LAB-MICRO | | | | + + + + + CULT, FUNGAL (& SMEAR) (09/16/2002 12:00 PM PDT) + + + + + + | Component | Value | Ref Range | Performed | Pathologist | | | | | At | Signature | + + + + + + | SOURCE BODY | Right Maxillary | | | | | SITE | | | | | + + + + + + | CULTURE | Fungus Culture | | | | | RESULT | Culture Source | | | | | | ....: Right | | | | | | Maxillary | | | | | | Smear..............: [...] | + + + + + | [facility] | [address] | [place] [address] | | | LAB-MICRO | | | | + + + + + FUNGUS PRELIMINARY 1 (09/16/2002 12:00 PM PDT) + + + + + [...] | + + + + + | [facility] | [address] | [place] [address] | | | LAB-MICRO | | | | + + + + + FUNGAL SMEAR ONLY (09/16/2002 12:00 PM PDT) + + + + + [...] + | SOURCE BODY | Right Maxillary | | | | | SITE | | | | | + + + + + + + + | Specimen | + + | | + + + + + + + | Performing | Address | City/State/Zipcode | Phone Number | | Organization | | | | + + + + + | [facility] | [address] | [place] [address] | | | LAB-MICRO | | | | + + + + + documented in this encounter Visit Diagnoses Not on filedocumented in this encounter"
--- OUTSIDE RECORDS SUMMARY | ~2018-10-01 | XMS | Encounter Summary ---
Demographics + + + | Address | [address] | | | [place] [address] | + + + | Home Phone | | + + + | Preferred Language | Unknown | + + + | Marital Status | | + + + | Orthodox Affiliation | Unknown | + + + | Race | White | + + + | Ethnic Group | Not or | + + + Author + + + | Author | [facility] | + + + | Organization | [facility] | + + + | Address | Unknown | + + + | Phone | Unavailable | + + + Support + + +---------+ + | Name | Relationship | Address | Phone | + + +---------+ + | Nunu Meléndez | ECON | Unknown | | + + +---------+ + Care Team Providers + +------+ + | Care Shirt Finisher Name | Role | Phone | + +------+ + PCP | Unavailable | + +------+ + Encounter Details +--------+ + + + + | Date | Type | Department | Care Team | Description | +--------+ + + + + | 05/07/ | Office | [facility] | Note, [...] as of this encounter Progress Notes Tammy, And Drying Supervisor Cooking Casing In - 01/19/2006 2:25 AM PDTCLINIC DATE: 05/07/2001 OTOLARYNGOLOGY CLINIC Mr. Meléndez returns today for followup of bilateral revision frontal sinusotomy and revision maxillary antrostomy. I saw the patient today with Dr. Baer and performed history and nasal endoscopy with debridement. Please see Gurvinder's note for complete details of today's visit. In summary, the sinuses are patent bilaterally. There is some fibrinous fluff from the topical mitomycin-C in both frontals and in the left maxillary sinus. However, all sinuses are patent. A wider section is necessary to explore both frontals. The patient will continue Augmentin for 2 more weeks and will follow up in 2 weeks. Bal Medina M.D. PH / HS [id number] / [id number] / [id number] / [id number] signed by Tammy, And Drying Supervisor Cooking Casing In at 01/19/2006 2:25 AM PDTInt leland, And Drying Supervisor Cooking Casing In - 01/19/2006 2:25 AM PDTCLINIC DATE: 05/07/2001 OTOLARYNGOLOGY CLINIC SUBJECTIVE: Rika comes today for followup. He has been feeling great. PROCEDURE: Diagnostic nasal endoscopy with tissue removal. ANESTHESIA: Topical lidocaine 4% and decongestant with phenylephrine. DESCRIPTION OF PROCEDURE: Bilateral nasal cavities were examined using a 4-mm 30-degree nasal endoscope. His both frontal sinuses were opened, and we were able to pass a small curved suction into both sinuses. The maxillary sinuses are inspected and there was some debris which was removed from the left maxillary sinus. The antrostomies are small but opened bilaterally. The mucosa is fairly friable on his both nasal cavities. ASSESSMENT AND PLAN: Chronic sinusitis status post bilateral revision maxillary antrostomies and frontal sinusotomies and mitomycin-c placement. He is doing very well. We will plan to see him back in 2 weeks. He might need another at that time. The patient was seen and examined by Dr. Bal Medina. Mily Baer M.D. Bal Medina M.D. Otolaryngology Head and Neck Surgery SSD / HS [id number] / [id number] / [id number] / [id number] signed by Interface, And Drying Supervisor Cooking Casing In at 01/19/2006 2:25 AM PDTdoc umented in this encounter Plan of Treatment Not on filedocumented as of this encounter Visit Diagnoses Not on filedocumented in this encounter"
--- OUTSIDE RECORDS SUMMARY | ~2018-10-01 | XMS | Encounter Summary ---
Demographics + + + | Address | [address] | | | [place] [address] | + + + | Home Phone | | + + + | Preferred Language | Unknown | + + + | Marital Status | | + + + | Orthodox Affiliation | Unknown | + + + | Race | White | + + + | Ethnic Group | Not or | + + + Author + + + | Author | [facility] | + + + | Organization | [facility] | + + + | Address | Unknown | + + + | Phone | Unavailable | + + + Support + + +---------+ + | Name | Relationship | Address | Phone | + + +---------+ + | Nunu Meléndez | ECON | Unknown | | + + +---------+ + Care Team Providers + +------+ + | Care Star Route Mail Driver Name | Role | Phone | + +------+ + PCP | Unavailable | + +------+ + Encounter Details +--------+ + + + + | Date | Type | Department | Care Team | Description | +--------+ + + + + | 09/09/ | Transcribed | UNKNOWN DEPARTMENT | Dictation, Other | Transcribed | | 1993 | | [address] [facility] | | | | | | [facility] | | | | | | [place], [place] | | | | | | [address] | | | +--------+ + + + [...] as of this encounter Progress Notes Interface, Civil Engineer Helper In - 09/03/2006 3:06 AM PDT [address] [address] [facility] September 09, 1992 PIERRE SERRANO M.D. [address] [place] [address] [address] [facility] [address] RE: Yuval Meléndez MR#: [id number] Dear Doctor Celeste: I appreciate your call, and I apologize for not sending a note about our consultation on Yuval Meléndez. He was seen in our Pulmonary Clinic on August 12, 1993. His main complaints included sinus pain and postnasal drip, without much wheezing or coughing. We were impressed that he has had multiple concerns and changes in his life-style, which may be contributing to depression. His physical examination of the chest was unremarkable, and spirometry was normal. We felt that his main problem was sinusitis, and that is being addressed; a drainage procedure is also being contemplated. I think this is a reasonable approach, and we will then have a reevaluation of any lower airway problems, to include a mecholyl test, which can be performed by scheduling at this hospital. It would be ideal to have him off his bronchodilators at the time of that test, but this is not absolutely necessary. Concerning skin testing/desensitization, I did not go into detail, but I would put that off until we see the results of sinus surgery and his follow-up symptom. Thank you for sharing this interesting management problem with myself and the University. If you have any further questions or want further review, please let me know. Sincerely, Alhaji Flores M.D. Preconstruction Manager, Medicine Division of Pulmonary & Critical Care [employer]:arielle September 10, 1992 documented in this encounter Plan of Treatment Not on filedocumented as of this encounter Visit Diagnoses Not on filedocumented in this encounter"
--- OUTSIDE RECORDS SUMMARY | ~2018-10-01 | XMS | Encounter Summary ---
Demographics + + + | Address | [address] | | | [place] [address] | + + + | Home Phone | | + + + | Preferred Language | Unknown | + + + | Marital Status | | + + + | [employer]beterian Affiliation | Unknown | + + + [...] Team Providers + +------+ + | Care Cut In Worker Name | Role | Phone | + +------+ + PCP | Unavailable | + +------+ + Encounter Details +--------+ + + + + | Date | Type | Department | Care Team | Description | +--------+ + + + + | 06/09/ | Office | [facility] | Note, [...] as of this encounter Progress Notes Interface, Rn Vascular In - 01/15/2006 3:11 AM PDTCLINIC DATE: 06/09/2001 OTOLARYNGOLOGY CLINIC HISTORY: Mr. Meléndez returns today for followup of revision frontal sinusotomy and maxillary antrostomy. He is irrigating twice a day and using Flonase and has been doing well overall with good control of symptoms. PROCEDURE: Diagnostic nasal endoscopy. ANESTHESIA: Lidocaine 4%. DESCRIPTION OF PROCEDURE: The 4-mm endoscope was used to examine the nasal cavity. Endoscopic examination of the left nasal cavity shows some retained clear secretions in the maxillary sinus, and these were suctioned without difficulty. The left frontal sinus is patent and clear. The right side of the frontal sinus is patent and clear. The contracted maxillary sinus shows no retained secretions. Ethmoids are clear bilaterally. ASSESSMENT AND PLAN: Neil is doing well at this point now 6 weeks postoperatively. He will continue the IV irrigations and topical nasal steroids, and he will follow up in 6 weeks. Bal Medina M.D. PH / HS [id number] / [id number] / [id number] / cc: Lucien Alonso M.D. [address] [place] [address] Gianni Muniz M.D. [address] [facility]. [place], [place] [address] [id number] signed by Interface, Rn Vascular In at 01/15/2006 3:11 AM PDTdoc umented in this encounter Plan of Treatment Not on filedocumented as of this encounter Visit Diagnoses Not on filedocumented in this encounter"
--- OUTSIDE RECORDS SUMMARY | ~2018-10-01 | XMS | Encounter Summary ---
Demographics + + + | Address | [address] | | | [place] [address] | + + + | Home Phone | | + + + | Preferred Language | Unknown | + + + | Marital Status | | + + + | Sabianism Affiliation | Unknown | + + + [...] Team Providers + +------+ + | Care Adapted Physical Education Teacher Name | Role | Phone | + +------+ + PCP | Unavailable | + +------+ + Encounter Details +--------+ + + + + | Date | Type | Department | Care Team | Description | +--------+ + + + + | 01/25/ | Transcribed | | Dictation, Other | [...] as of this encounter Progress Notes Interface, Indigo Vat Tender Cloth In - 02/09/2006 2:25 AM [facility] [place] [address] [place], [place] [address] or Department of Otolaryngology - PV01 January 25, 2001 Gianni Muniz M.D. [address] [facility] [place] [address] RE: RUPERTO SOLANO MR #: [id number] Dear Jack: At the request of Dr. Carlos Martinez, I saw your patient Mr. Ruperto Solano today for evaluation of chronic sinusitis. Carlos asked for my opinion regarding possible endoscopic adjuncts to external approach to the frontal sinus. At this time, we are planning a combined approach to the frontals, and I will also plan to revise the maxillary sinuses endoscopically. Thank you for the opportunity to be involved in Mr. Solano's care. A copy of my clinic note from today is being sent to you under separate cover. Please feel free to contact me if you have any questions of concerns. Sincerely, Bal Medina M.D. Guest Service Agent PH / HS [id number] / [id number] / [id number] / cc: Carlos Martinez M.D. PV-[id number] Lucien Alonso M.D. [address] [place] [address], [place] [address] [id number] signed by Tammy, Indigo Vat Tender Cloth In at 02/09/2006 2:25 AM PDTdocume nted in this encounter Plan of Treatment Not on filedocumented as of this encounter Visit Diagnoses Not on filedocumented in this encounter"
--- OUTSIDE RECORDS SUMMARY | ~2018-10-01 | XMS | Encounter Summary ---
Demographics + + + | Address | [address] | | | [place] [address] | + + + | Home Phone | | + + + | Preferred Language | Unknown | + + + | Marital Status | | + + + | Mu-Ism Affiliation | Unknown | + + + [...] Team Providers + +------+ + | Care Lawn And Tree Service Spray Supervisor Name | Role | Phone | + +------+ + PCP | Unavailable | + +------+ + Encounter Details +--------+ + + + + | Date | Type | Department | Care Team | Description | +--------+ + + + + | 04/21/ | Office | | Note, Outpatient | [...] as of this encounter Progress Notes Interface, Order Taker In - 09/29/2005 1:00 AM PDTClinic Date: 04/21/2003 Clinic: Otolaryngology History: Mr. Meléndez returns today for followup of chronic sinusitis. He did well on the Biaxin but began to develop a rash in response to the half-strength dose. In the last 3 weeks, he has noticed increased discharge that is slowly becoming purulent, and he has pressure in the maxillaries bilaterally. Procedure: Diagnostic nasal endoscopy. Anesthesia: Lidocaine 4%. Description of the Procedure: The 4-mm endoscope was used for nasal endoscopy. Examination is notable for some opaque, white mucus in the right maxillary sinus. This was cultured and then suctioned. The remainder of the sinuses looked reasonably clean with mild mucosal thickening in the left frontal, but otherwise, the sinuses are clear. Assessment and Plan: The patient is having some relapse. He appears to require some supplemental anti-inflammatory therapy in order to maintain his sinus health. Because he has not been able to tolerate the Biaxin, we will try prednisone 5 mg every other day for the next few months and then dropping down to 2.5 mg every other day. He will follow up in 3 months. Bal Medina M.D. PH / HS [id number] / [id number] / [id number] / [id number] Tdocumented in this encounter Plan of Treatment Not on filedocumented as of this encounter Visit Diagnoses Not on filedocumented in this encounter"
--- OUTSIDE RECORDS SUMMARY | ~2018-10-01 | XMS | Encounter Summary ---
Demographics + + + | Address | [address] | | | [place] [address] | + + + | Home Phone | | + + + | Preferred Language | Unknown | + + + | Marital Status | | + + + | Taoism Affiliation | 1001 | + + + | Race | Unknown | + + + | Ethnic Group | Unknown | + + + Author + + + | Author | [facility] | + + + | Organization [...] Team Providers + +------+ + | Care Optoelectronics Engineer Name | Role | Phone | + +------+ + | Lucien Alonso MD | PCP | | + +------+ + Reason for Visit Consult and Treat (Routine) + +--------+ + + + + | Status | Reason | Specialty | Diagnoses / | Referred By | Referred To | | | | | Procedures | Contact | Contact | + +--------+ + + + + | Authorized | | Pulmonology | Diagnoses | Celeste | Mohsen | | | | | Moderate | | Pulmonology | | | | | persistent | Lucien, | [address] | | | | | asthma, | MD [address] | | | | | uncomplicate | [address] | [place], [place] | | | | | d | [address] | [address] | | | | | | [place], | Phone: | | | | | | [place] | [phone] | | | | | | [address] | | | | | | | Phone: | | | | | | | [phone] | | | | | | | Fax: | | | | | | | [phone] | | + +--------+ + + + + Encounter Details +--------+---------+ + + + | Date | Type | Department | Care Team | Description | +--------+---------+ + + + | 07/13/ | Office | [facility] | Scar Gibbons MD | Eosinophilic asthma | | 2019 | Visit | Pulmonology [address] | [address] | ([facility]) | | | | [address] | [place] [address] | | | | | [place], [place] | [phone] | | | | | [address] | | | | | | [phone] | | | +--------+---------+ + + + Social History [...] + + + | Blood Pressure | 124/71 | 07/13/2018 11:22 AM PDT | + + + + | Pulse | 80 | 07/13/2018 11:22 AM PDT | + + + + | Temperature | 36.1 C (96.9 F) | 07/13/2018 11:22 AM PDT | + + + + | Respiratory Rate | - | - | + + + + | Oxygen Saturation | 93% | 07/13/2018 11:22 AM PDT | + + + + | Inhaled Oxygen | - | - | | Concentration | | | + + + + | Weight | 91.6 kg (202 lb) | 07/13/2018 11:22 AM PDT | + + + + | Height | 182.9 cm (6') | 07/13/2018 11:22 AM PDT | + + + + | Body Mass Index | 27.4 | 07/13/2018 11:22 AM PDT | + + + + in this encounter Progress Notes Scar Gibbons MD - 07/13/2018 12:40 PM PDTFormatting of this note may be different from th mitesh original. Subjective: Patient ID: Neil Meléndez is a 78 y.o. male is here for follow up for asthma. HPI The following portions of the patient's history were reviewed and updated as appropriate an d is available elsewhere in the record: allergies, current medications, past family history, past medical history, past social history, past surgical history and problem list. The patient is a pleasant 77 year old male who presents with recurrent episodes of shortne ss of breath and wheezing . He says that he has been struggling with asthma like symptoms f or a long time and has recurrent bronchitis. In 2002 he was extensively investigated for the se and he underwent atleast 2 surgeries with minimal control of his symptoms. The symptoms u sually respond to steroids. The taper of steroids are long. In the past he has been managed with combination of Long acting beta agonist and inhaled st eroids. He has had multiple exacerbation with the last one being one week ago. He was starte d on prednisone and just finished his last dose yesterday . He says that he has not felt lik e this for a long time and still he was very short of breath . He has never been intubated or admitted to the ICU for these episodes. He denies GERD. He has no major environmental exposures. 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 He is a life time nonsmoker. INTERIM HISTORY 07/13/2018 The patient has been compliant with the use of symbicort. He says that he has had only 25% relief. He continues to have significant shortness of breath. Review of Systems Constitutional: Positive for activity change and fatigue. HENT: Positive for congestion and sinus pressure. Eyes: Negative. Respiratory: Positive for cough, shortness of breath and wheezing. Cardiovascular: Negative. Gastrointestinal: Negative. Endocrine: Negative. Genitourinary: Negative. Musculoskeletal: Negative. Skin: Negative. Allergic/Immunologic: Negative. Neurological: Negative. Hematological: Negative. Psychiatric/Behavioral: Negative. History: Past Medical History Diagnosis Date Asthma Low testosterone Malignant neoplasm (HCC) prostate Past Surgical History Procedure Laterality Date KIDNEY STONE SURGERY KNEE SURGERY Right PROSTATECTOMY SINUS SURGERY Social History Social History Marital status: Spouse name: N/A Number of children: N/A Years of education: N/A Social History Main Topics Smoking status: Never Smoker Smokeless tobacco: Never Used Alcohol use No Drug use: No Sexual activity: Not Asked Other Topics Concern None Social History Narrative None Family History Problem Relation Age of Onset Heart failure Mother Diabetes type II Mother Cancer Father prostate Diabetes type II Father Alzheimer's disease Father Allergies: No Known Allergies Current Medications: Current Outpatient Prescriptions on File Prior to Visit Medication Sig Dispense Refill budesonide-formoterol (SYMBICORT) 160-4.5 MCG/ACT inhaler Inhale 2 puffs into the lungs 2 (two) times daily. 1 Inhaler 12 buPROPion (WELLBUTRIN) 100 MG tablet Take 100 mg by mouth. PARoxetine (PAXIL) 30 MG tablet Take 30 mg by mouth. pramipexole (MIRAPEX) 0.25 MG tablet Take 0.125 mg by mouth. silver sulfADIAZINE (SSD) 1 % cream apply topically daily as directed triamcinolone (NASACORT AQ) 55 MCG/ACT nasal inhaler 1 spray by Nasal route. zolpidem (AMBIEN) 10 MG tablet Take 10 mg by mouth. doxycycline (VIBRAMYCIN) 100 MG capsule take 1 capsule by mouth twice a day for 10 days 0 GUAIATUSSIN AC 100-10 MG/5ML syrup take 5 to 10 milliliters by mouth four times a day i f needed for cough 0 methylPREDNISolone 4 MG dose pack Follow package directions. 21 tablet 0 PROAIR HFA 108 (90 Base) MCG/ACT inhaler inhale 2 puffs by mouth if needed every 6 hour s 0 No current facility-administered medications on file prior to visit. Objective: Physical Exam Vitals: 07/13/18 1122 BP: 124/71 Pulse: 80 Temp: 96.9 F (36.1 C) SpO2: 93% Vital signs reviewed. GENERAL: pleasant, cooperative, oriented, not in distress HEENT: pink conjunctiva, anicteric sclerae, moist oral mucosae and without any lesions, nor mal appearing nasal mucosae; no JVD; MALAMPATTI __2_; no thyromegaly; no cervicolymphadenopa satish CVS: PMI non displaced, NRRR, S1 and S2, no murmurs/gallops/rubs CHEST: Examination of the chest was unremarkable. There were no bony deformities, no asymme try, and no other abnormalities. LUNGS: bilateral diffuse expiratory wheezing ABDOMEN: Flat abdomen, NABS, non-tender on palpation, Traube's space intact, liver span nor mal, no masses palpated EXTREMITIES: good distal pulses, no cyanosis, no edema, no clubbing, no nail abnormalities NEURO: awake and oriented, gait normal, no focal neurologic deficits Pulmonary function test 06/09/2018 FEV1/FVC 62 FEV1 2.29/72 FVC 3.7/86 TLC 6.12/82 Diffusing capacity 24.08/68 Total eosinophil count 867 Assessment and Plan: 1. 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 His total eosinophil coun t is significantly elevated. This has been uncontrolled for a very long and he has taken mu ltiple courses steroids over the years. Unfortunately he has not been using inhaled steroids lately. He has has sinus surgery done but that has not changed his symptoms. He has been using budesonide-formoterol (SYMBICORT) 160-4.5 MCG/ACT inhaler Inhale 2 puffs into the lungs 2 ( two) times daily I will treat him with a course of Solu-Medrol. I will treat him with nucala 2. Interstitial lung disease His pulmonary function test is suggestive of moderate obstructive impairment with significa nt bronchodilator response. He does have reduced diffusing capacity and has had exposure to asbestos, mold. There is possibility he has hypersensitivity pneumonitis. I will get a me gh-resolution CT which unfortunately was not covered by his insurance for unclear reason. Thank you for allowing me to participate in your patient's care. We will review test result s that we have ordered with the patient once they become available. A return visit has been scheduled in 6weeks. Scar Gibbons MD Pulmonary and Critical Care Medicine [address] , [place] [address] in this encounter Plan of Treatment +--------+ + + + + | Date | Type | Specialty | Care Team | Description | +--------+ + + + + | 10/21/ | Appointment | | Scar Gibbons MD | | | 2018 | | | [address] | | | | | | [place] [address] | | | | | | [phone] | | | | | | | | +--------+ + + + + | 11/18/ | Appointment | | Scar Gibbons MD | | | 2018 | | | [address] | | | | | | [place] [address] | | | | | | [phone] | | | | | | | | +--------+ + + + + | 12/16/ | Appointment | | Scar Gibbons MD | | | 2018 | | | [address] | | | | | | [place] [address] | | | | | | [phone] | | | | | | | | +--------+ + + + + | 01/17/ | Office | Pulmonology | Scar Gibbons MD | | | 2019 | Visit | | [address] | | | | | | [facility] [place] [address] | | | | | | [phone] | | | | | | | | +--------+ + + + + as of this encounter Visit Diagnoses + + | Diagnosis | + + | Eosinophilic asthma (HCC) | + + | Pulmonary eosinophilia | + +"
--- OUTSIDE RECORDS SUMMARY | ~2018-10-01 | XMS | Encounter Summary ---
Demographics + + + | Address | [address] | | | [place] [address] | + + + | Home Phone | | + + + | Preferred Language | Unknown | + + + | Marital Status | | + + + | Sikhism Affiliation | Unknown | + + + | Race | White | + + + | Ethnic Group | Not or | + + + Author + + + | Author | [facility] | + + + | Organization | [facility] | + + + | Address | Unknown | + + + | Phone | Unavailable | + + + Support + + +---------+ + | Name | Relationship | Address | Phone | + + +---------+ + | Nunu Meléndez | ECON | Unknown | | + + +---------+ + Care Team Providers + +------+ + | Care Mica Machine Operator Name | Role | Phone | + +------+ + PCP | Unavailable | + +------+ + Encounter Details +--------+ + + + + | Date | Type | Department | Care Team | Description | +--------+ + + + + | 01/25/ | Office | [facility] | Note, Outpatient | Progress Note | | 2000 | Visit-Trans | MEDICINE | Clinic | [...] as of this encounter Progress Notes Interface, Production Line Operator In - 02/09/2006 2:25 AM PDTCLINIC DATE: 01/25/2001 OTOLARYNGOLOGY CLINIC REFERRING PHYSICIAN: Carlos Martinez M.D. HISTORY: Mr. Meléndez is a 60-year-old man who has been referred to [facility] by Dr. Gianni Muniz for evaluation of chronic sinusitis. The patient was referred by Dr. Martinez who has asked me to see the patient in consultation for possible endoscopic adjuncts to external sinus surgery. The patient has a longstanding history of sinusitis with 3 previous sinus operations over the last 10 years. His first sinus surgery was in 1993 which was followed by sinus surgery in 1997 and 1998. He has a fairly good symptomatic response to Augmentin and prednisone but quickly relapses after discontinuing medications. He sates that medical therapy never fully eliminates his sinus infection. He describes bilateral nasal obstruction and bilateral dental pressure and periorbital pressure. He has been using Ultram for pain control with some improvement. He has chronic purulent discharge that improves with antibiotics but quickly returns after discontinuing antibiotics. His most recent CT scan shows widely patent ethmoid cavities with contracted and opacified maxillary sinuses bilaterally. There is evidence of previous Drummond-Quan surgery. The frontal sinuses are also opacified with evidence of middle turbinate resection. PAST MEDICAL HISTORY: The patient has a history of asthma, arthritis, depression, as well as multiple myeloma although bone marrows have been negative in this workup. PAST SURGICAL HISTORY: Sinus surgery as above, wisdom tooth extraction in 2000, and colonoscopy in 1996. MEDICATIONS: Ultram 50 mg p.r.n., Celexa 20 mg q.h.s., Ambien 10 mg q.h.s., Guaifenex 600 mg b.i.d., Celebrex p.r.n., Mirapex 0.25 mg q.h.s., Flovent 220 mcg b.i.d., Serevent 2 sprays b.i.d., Flonase 2 sprays q.a.m., albuterol p.r.n., Guiatuss p.r.n., most recently on prednisone 10 mg q.d. and Augmentin 875 mg b.i.d., and Advair 500 mcg q.d. ALLERGIES: No known drug allergies. HISTORY OF ENVIRONMENTAL ALLERGY WITH DOCUMENTED SENSITIVITY TO DUST, MOULD, AND TREES. History of immunotherapy for 3 years x 3 with some improvement. FAMILY HISTORY: Positive for prostate cancer and colon cancer. 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 He does not smoke or drink. REVIEW OF SYSTEMS: ENT: Positive for hearing loss and tinnitus. Remainder of systems are negative per questionnaire except for shortness of breath, snoring, weakness, numbness, fever, and fatigue. PHYSICAL EXAMINATION: VITAL SIGNS: Blood pressure 130/76, height 5 foot 11-1/2 inches, weight 204 pounds, and pulse 76. GENERAL: A well-developed, well-nourished man in no acute distress. HEENT: Head: Normocephalic and atraumatic. Ears: Normal pinnae, senior auditor canal, and tympanic membranes bilaterally. Nose: Normal external nose. Anterior rhinoscopy shows patent nasal airways bilaterally. Oral cavity and oropharynx: Normal. Tongue, floor of mouth, buccal mucosa, soft palate, and posterior pharynx. Larynx: Normal epiglottis. Normal true focal cords. Normal vocal cord mobility. No masses or lesions. NECK: No cervical lymphadenopathy. No neck masses. No thyroid enlargement. NEUROLOGIC: Alert and oriented x3. Cranial nerves intact. Speech is fluent. Affect is euthymic. BRIEF IMPRESSION: Chronic sinusitis. Diagnostic nasal endoscopy indicated. PROCEDURE: Diagnostic nasal endoscopy. ANESTHESIA: Lidocaine 4%. DESCRIPTION OF PROCEDURE: A 4-m, 30-degree endoscopy was used for nasal endoscopy. Endoscopic examination of the left nasal cavity shows a contracted maxillary antrostomy. There is a stream of opaque white mucopus that is draining from the maxillary sinus into the nasopharynx. The ethmoid cavity is widely exenterated. There is evidence of a resected middle turbinate with some scar bands within the superior aspect of the root of the turbinate and the orbital wall. No purulent discharge in the frontal region is noted. No clear opening through the frontal is seen. Next, attention was directed to the right nasal cavity. The examination is notable for again a contracted maxillary antrostomy and a patent ethmoidectomy cavity. The middle turbinate is resected and lateralized with scarring between the remnant of the turbinate and the frontal sinus. ASSESSMENT AND PLAN: The patient has evidence of opacified maxillary sinuses and frontal sinuses bilaterally. He is interested in surgical options given his refractory status after extended courses of medical therapy. The maxillary sinuses would benefit from revision with probable "michael" antrostomies to facilitate irrigation and to maximally ventilate the sinuses. The left frontal sinus appears to be approachable endoscopically but the right frontal sinus may require a Sewall-Beatrice approach externally. Therefore, Dr. Martinez and I will be planning a combined approach to the frontals with a primary attempt endoscopically with a backup external approach as necessary. I have discussed this plan with Dr. Martinez and with the patient, and we are all in agreement in proceeding. A PARQ discussion was held with the patient regarding the planned surgery, and he does wish to proceed. We will plan computer-guided navigation for his surgery given the extent of postoperative changes, and this will be performed on the day prior to surgery at his preoperative visit. Bal Medina M.D. PH / HS [id number] / [id number] / [id number] / C: 01/28/2001 pedro cc: Gianni Muniz M.D. [address] [facility] [address] Montrell Alonso M.D. [address] [place] [address] [id number] signed by Interface, Production Line Operator In at 02/09/2006 2:25 AM PDTdocume nted in this encounter Plan of Treatment Not on filedocumented as of this encounter Visit Diagnoses Not on filedocumented in this encounter
--- OUTSIDE RECORDS SUMMARY | ~2018-10-01 | XMS | Encounter Summary ---
Demographics + + + | Address | [address] | | | [place] [address] | + + + | Home Phone | | + + + | Preferred Language | Unknown | + + + | Marital Status | | + + + | Baptism Affiliation | 1001 | + + + | Race | Unknown | + + + | Ethnic Group | Unknown | + + + Author + + + | Author | [facility] | + + + | [...] Team Providers + +------+ + | Care Cutter Head Sharpener Name | Role | Phone | + +------+ + | Lucien Alonso MD | PCP | | + +------+ + Encounter Details +--------+ + + + + | Date | Type | Department | Care Team | Description | +--------+ + + + + | 09/20/ | Orders Only | [facility] | Sue Burris RN | | | 2018 | | Pulmonology [address] | | | | | | [address] | | | | | | [place] | | | | | | [address] | | | | | | [phone] | | | +--------+ + + + [...] | | 2018 | | | [address] | | | | | | [place] [address] | | | | | | [phone] | | | | | | | | +--------+ + + + + | 11/18/ | Appointment | | Scar Gibbons MD | | | 2018 | | | [address] | | | | | | [place] [address] | | | | | | [phone] | | | | | | | | +--------+ + + + + | 12/16/ | Appointment | | Scar Gibbons MD | | | 2019 | | | [address] | | | | | | [place] [address] | | | | | | [phone] | | | | | | | | +--------+ + + + + | 01/17/ | Office | Pulmonology | Scar Gibbons MD | | | 2019 | Visit | | [address] | | | | | | [place] [address] | | | | | | [phone] | | | | | | | | +--------+ + + + + as of this encounter Visit Diagnoses Not on filein this encounter"
--- OUTSIDE RECORDS SUMMARY | ~2018-10-01 | XMS | Encounter Summary ---
Demographics + + + | Address | [address] | | | [place] [address] | + + + | Home Phone | | + + + | Preferred Language | Unknown | + + + | Marital Status | | + + + | Jewish Affiliation | 1001 | + + + | Race | Unknown | + + + | Ethnic Group | Unknown | + + + Author + + + | Author | [facility] | + + + | Organization [...] Team Providers + +------+ + | Care Engraver Set Up Operator Name | Role | Phone | + +------+ + | Lucien Alonso MD | PCP | | + +------+ + Encounter Details +--------+ + + + + | Date | Type | Department | Care Team | Description | +--------+ + + + + | 09/24/ | Telephone | [facility] | Sue Burris RN | | | 2018 | | Pulmonology [address] | | | | | | [address] | | | | | | [place] | | | | | | [address] | | | | | | [phone] | | | +--------+ + + + [...] [address] | | | | | | [facility] [place] [facility] [place] [address] | | | | | | [phone] | | | | | | | | +--------+ + + + + | 11/18/ | Appointment | | Scar Gibbons MD | | | 2019 | | | [address] | | | | | | [facility] [place] [address] | | | | | | [phone] | | | | | | | | +--------+ + + + + | 12/16/ | Appointment | | Scar Gibbons MD | | | 2019 | | | [address] | | | | | | [place] [address] | | | | | | [phone] | | | | | | | | +--------+ + + + + | 01/17/ | Office | Pulmonology | Scar Gibbons MD | | | 2019 | Visit | | [address] | | | | | | [place] [address] | | | | | | [phone] | | | | | | | | +--------+ + + + + as of this encounter Visit Diagnoses Not on filein this encounter"
--- OUTSIDE RECORDS SUMMARY | ~2018-10-01 | XMS | Encounter Summary ---
Demographics + + + | Address | [address] | | | [place] [address] | + + + | Home Phone | | + + + | Preferred Language | Unknown | + + + | Marital Status | | + + + | Sabianist Affiliation | Unknown | + + + | Race | White | + + + | Ethnic Group | Not or | + + + Author + + + | Author | [facility] | + + + | Organization | [facility] | + + + | Address | Unknown | + + + | Phone | Unavailable | + + + Support + + +---------+ + | Name | Relationship | Address | Phone | + + +---------+ + | Nunu Meléndez | ECON | Unknown | | + + +---------+ + Care Team Providers + +------+ + | Care Nitroglycerin Supervisor Name | Role | Phone | [...] as of this encounter Progress Notes Interface, Automotive Sales Specialist In - 01/19/2006 2:25 AM PDTCLINIC DATE: [...] will follow up in 3 weeks. Bal Mdeina M.D. PH / HS [id number] / [id number] / [id number] / [id number] signed by Interface, Automotive Sales Specialist In at 01/19/2006 2:25 AM PDTdoc umented in this encounter Plan of Treatment Not on filedocumented as of this encounter Visit Diagnoses Not on filedocumented in this encounter"
--- OUTSIDE RECORDS SUMMARY | ~2018-10-01 | XMS | Encounter Summary ---
Demographics + + + | Address | [address] | | | [place] [address] | + + + | Home Phone [...] Team Providers + +------+ + | Care Wardrobe Coordinator Name | Role | Phone | + +------+ + PCP | Unavailable | + +------+ + Encounter Details +--------+ + + + + | Date | Type | Department | Care Team | Description | +--------+ + + + + | 09/16/ | Office | | Note, Outpatient | [...] as of this encounter Progress Notes Interface, Liner Inserter In - 11/19/2005 3:08 AM PDTCLINIC DATE: 09/16/2002 OTOLARYNGOLOGY CLINIC HISTORY: The patient returns today for followup of chronic sinusitis. He has had a difficult time with infections in last couple of months. He has had chronic crusting and purulent discharge. PROCEDURE: Diagnostic nasal endoscopy. ANESTHESIA : Lidocaine 4%. DESCRIPTION OF PROCEDURE: A 4-mm endoscope was used for nasal endoscopy. Examination is notable for copious crusting in the frontal recesses bilaterally as well as in the ethmoid cavity. This was debrided thoroughly and cultured. The frontal sinuses are edematous. The maxillary antrostomies are also edematous. ASSESSMENT AND PLAN: The patient has evidence of active infection. Interestingly, he does not have significant frontal symptoms although there is frontal edema. The patient will use TobraDex nasal spray 10 cc and 45 cc to be sprayed, two to three sprays each nostril b.i.d. The patient also states that the Septra has been very helpful for him as an antibiotic, and this was renewed empirically until cultures return. The patient will also start to taper prednisone. He will follow up in 3 months. Bal Medina M.D. PH / HS [id number] / [id number] / [id number] / [id number] Tdocumented in this encounter Plan of Treatment Not on filedocumented as of this encounter Visit Diagnoses Not on filedocumented in this encounter"
--- OUTSIDE RECORDS SUMMARY | ~2018-10-01 | XMS | Encounter Summary ---
Demographics + + + | Address | [address] | | | [place] [address] | + + + | Home Phone | | + + + | Preferred Language | Unknown | + + + | Marital Status | | + + + | Hindu Affiliation | Unknown | + + + | Race | White | + + + | Ethnic Group | Not or | + + + Author + + + | Author | [facility] | + + + | Organization | [facility] | + + + | Address | Unknown | + + + | Phone | Unavailable | + + + Support + + +---------+ + | Name | Relationship | Address | Phone | + + +---------+ + | Nunu Meléndez | ECON | Unknown | | + + +---------+ + Care Team Providers + +------+ + | Care Program Therapist Name | Role | Phone | + [...] [facility] [address] | [facility] | | | | | [place] | [place] [address] | | | | | Road Mailcode: PV01 | | | | | | Physician's | | | | | | [place] | | | | | | [place] [address] | | | | | | [phone] | | | +--------+ + + + [...] | + + + + + | [facility] | [address] | [place] [address] | | | LAB-MICRO | | | [...] | + + + + + | [facility] | [address] | [place] [address] | | | LAB-MICRO | | | [...] | + + + + + | [facility] | [address] | [place] [address] | | | LAB-MICRO | | | [...] + + + | [facility] | [address] | [place] [address] | | | LAB-MICRO | | | | + + + + + documented in this encounter Visit Diagnoses Not on filedocumented in this encounter"
--- OUTSIDE RECORDS SUMMARY | ~2018-10-01 | XMS | Encounter Summary ---
Demographics + + + | Address | [address] | | | [place] [address] | + + + | Home Phone | | + + + | Preferred Language | Unknown | + + + | Marital Status | | + + + | Quaker Affiliation | 1001 | + + + | Race | Unknown | + + + | Ethnic Group | Unknown | + + + Author + + + | Author | [facility] | + + + | Organization [...] Team Providers + +------+ + | Care Tar Leveler Name | Role | Phone | + [...] | Radiology | Diagnoses | Edwige, | [facility] [address] | | | | | ILD | MD Scar | [address] | | | | | (interstitia | [address] | | | | | l lung | [address] | [place] | | | | | disease) | [place], | [address] Phone: | | | | | (HCC) | [place] [address] | [phone] | | | | | Procedures | Phone: | | | | | | CT chest | [phone] | | | | | | without | Fax: | | | | | | contrast | [phone] | | +--------+--------+ + + + + MRI/CAT Scan (Routine) +--------+--------+ + + + + | Status | Reason | Specialty | Diagnoses / | Referred By | Referred To | | | | | Procedures | Contact | Contact | +--------+--------+ + + + + | Closed | | Radiology | Diagnoses | Edwige, | [facility] [address] | | | | | ILD | MD Scar | [address] | | | | | (interstitia | [address] | | | | | l lung | [address] | [place], [place] | | | | | disease) | [place], | [address] Phone: | | | | | (HCC) | [place] [address] | [phone] | | | | | Procedures | Phone: | | | | | | CT chest | [phone] | | | | | | without | Fax: | | | | | | contrast | [phone] | | +--------+--------+ + + + + Reason for Visit MRI/CAT Scan (Routine) +--------+--------+ + + + + | Status | Reason | Specialty | Diagnoses / | Referred By | Referred To | | | | | Procedures | Contact | Contact | +--------+--------+ + + + + | Closed | | Radiology | Diagnoses | Edwige, | [facility] [address] | | | | | ILD | MD Scar | [address] | | | | | (interstitia | [address] | | | | | l lung | [address] | [place], [place] | | | | | disease) | [facility] | [address] Phone: | | | | | ([facility]) | [place] [address] | [phone] | | | | | Procedures | Phone: | | | | | | CT chest | [phone] | | | | | | without | Fax: | | | | | | contrast | [phone] | | +--------+--------+ + + + + Encounter Details +--------+ + + + + | Date | Type | Department | Care Team | Description | +--------+ + + + + | 09/23/ | Hospital | [facility] | Scar Gibbons MD | ILD (interstitial | | 2019 | Encounter | [facility] CT | [address] | lung disease) ([facility]) | | | | [address] | [place] [address] | | | | | [place] [address] | [phone] | | | | | [phone] | | | +--------+ + + + [...] | | | | | [place] [address] | | | | | | [phone] | | | | | | | | +--------+ + + + + | 11/18/ | Appointment | | Scar Gibbons MD | | | 2018 | | | [address] | | | | | | [place] [address] | | | | | | [phone] | | | | | | | | +--------+ + + + + | 12/16/ | Appointment | | Scar Gibbons MD | | | 2018 | | | [address] | | | | | | [place] [address] | | | | | | [phone] | | | | | | | | +--------+ + + + + | 01/17/ | Office | Pulmonology | Scar Gibbons MD | | | 2018 | Visit | | [address] | | | | | | [place] [address] | | | | | | [phone] | | | | | | | [...] | + + + + + | [facility] | [address] | [place] [address] | | + + + + + in this encounter Visit Diagnoses + + | Diagnosis | + + | ILD (interstitial lung disease) (HCC) | + + | Postinflammatory pulmonary fibrosis | + +"
--- OUTSIDE RECORDS SUMMARY | ~2018-10-01 | XMS | Encounter Summary ---
Demographics + + + | Address | [address] | | | [place] [address] | + + + | Home Phone | | + + + | Preferred Language | Unknown | + + + | Marital Status | | + + + | Moravian Affiliation | Unknown | + + + | Race | White | + + + | Ethnic Group | Not or | + + + Author + + + | Author | [facility] | + + + | Organization | [facility] | + + + | Address | Unknown | + + + | Phone | Unavailable | + + + Support + + +---------+ + | Name | Relationship | Address | Phone | + + +---------+ + | Nunu Meléndez | ECON | Unknown | | + + +---------+ + Care Team Providers + +------+ + | Care Retail Loan Originator Name | Role | Phone | + +------+ + PCP | Unavailable | + +------+ + Encounter Details +--------+ + + + + | Date | Type | Department | Care Team | Description | +--------+ + + + + | 04/20/ | Office | [facility] | Note, [...] as of this encounter Progress Notes Interface, Pacs Specialist In - 01/23/2006 1:08 AM PDTCLINIC DATE: 04/20/2001 OTOLARYNGOLOGY -HEAD AND NECK SURGERY Mr. Meléndez was seen back for preoperative discussion regarding the possibility of a Stacy flap for his right frontal sinus. He understands that this procedure will only be done if Dr. Nicole fails and although, it is planned for the right side, it is possible we will do an intrasinus septectomy to open the left side as well. He seems to understand all the issues involved. A full PAR was held. His consent was signed. Carlos Martinez M.D. KAYLYN / [id number] / [id number] / [id number] / [id number] signed by Interface, Pacs Specialist In at 01/23/2006 1:08 AM PDTdoc umented in this encounter Plan of Treatment Not on filedocumented as of this encounter Visit Diagnoses Not on filedocumented in this encounter"
--- OUTSIDE RECORDS SUMMARY | ~2018-10-01 | XMS | Encounter Summary ---
Demographics + + + | Address | [address] | | | [place] [address] | + + + | Home Phone | | + + + | Preferred Language | Unknown | + + + | Marital Status | | + + + | Sikhism Affiliation | 1001 | + + + | Race | Unknown | + + + | Ethnic Group | Unknown | + + + Author + + + | Author | [facility] | + + + | Organization [...] Team Providers + +------+ + | Care Unarmed Security Officer Name | Role | Phone | + +------+ + | Lucien Alonso MD | PCP | | + +------+ + Encounter Details +--------+ + + + + | Date | Type | Department | Care Team | Description | +--------+ + + + + | 09/20/ | Orders Only | [facility] | Sue Burris RN | | | 2018 | | Pulmonology [address] | | | | | | [address] | | | | | | [place] | | | | | | [address] | | | | | | [phone] | | | +--------+ + + + [...] | | | | | [place] [address] | | | | | | [phone] | | | | | | | | +--------+ + + + + | 11/18/ | Appointment | | Scar Gibbons MD | | | 2018 | | | [address] | | | | | | [place] [address] | | | | | | [phone] | | | | | | | | +--------+ + + + + | 12/16/ | Appointment | | Scar Gibbons MD | | | 2019 | | | [address] | | | | | | [place] [address] | | | | | | [phone] | | | | | | | | +--------+ + + + + | 01/17/ | Office | Pulmonology | Scar Gibbons MD | | | 2019 | Visit | | [address] | | | | | | [place] [address] | | | | | | [phone] | | | | | | | | +--------+ + + + + as of this encounter Visit Diagnoses Not on filein this encounter"
--- OUTSIDE RECORDS SUMMARY | ~2018-10-01 | XMS | Encounter Summary ---
Demographics + + + | Address | [address] | | | [place] [address] | + + + | Home Phone | | + + + | Preferred Language | Unknown | + + + | Marital Status | | + + + | Caodaism Affiliation | Unknown | + + + [...] Team Providers + +------+ + | Care Mixing Plant Operator Name | Role | Phone | + +------+ + PCP | Unavailable | + +------+ + Encounter Details +--------+ + + + + | Date | Type | Department | Care Team | Description | +--------+ + + + + | 12/29/ | Transcribed | | Dictation, Other | [...] as of this encounter Progress Notes Interface, Acidizer Water Well In - 02/09/2006 2:25 AM [facility] [place] [address] [place], [place] [address] or Department of Otolaryngology - PV01 December 29, 2000 YAS NOVOA M.D. [address] [facility] [address] [place], [place] [address] RE: RUPERTO SOLANO MR #: [id number] Dear Jack: I saw Mr. Solano in consultation today regarding his chronic sinusitis and a question of whether frontal sinus Flushing procedure would be helpful to him. I saw this patient with my senior resident Dr.Shaun Pearce, and the details of my interaction with the patient are outlined in detail in his note. I did completely review the history, did a full physical examination as well as reviewing the extensive outside records which you were kind enough to send along. I also had the opportunity to review his CT scan. The summary of my findings is that Mr. Solano has longstanding chronic sinus disease and has undergone rather extensive sinus surgery for this. Although this has improved his situation, he continues to be troubled mostly by intermittent headaches, chronic mild low-grade fevers as well as purulent secretions from his nose which are most troubling to him. 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 At the present time, his overall state of health is reasonable, and his most troubling symptom at the present time is that of the thick mucus in his nose. His physical examination at the present time is positive only within the sinonasal region. One can see by nasoendoscopy thick secretions which are scattered throughout his sinuses, particularly up in the area of the frontal recess as well as in both maxillary sinus surgical ostia. CT scan confirms a chronic mucosal thickening within his maxillary sinuses as well as his frontal sinuses which appear to be completely obliterated in the right and nearly completely obliterated on the left side. Although, a Flushing procedure would likely be possible on Mr. Solano, I am concerned given the degree of mucosal thickening he has even in the areas where he is well healed, that there is not enough room nor can enough room can be created to ensure long-term patency. I am also concerned that his main symptoms really do not relate locally to his frontal sinus, but rather globally to his chronic sinusitis and probably his underlying immunodeficiency. I think it would be more appropriate that Mr. Solano be evaluated by Dr. Eleonora Rowley or Dr. Bal Medina first to see if they have any thoughts as far as further medical management of his sinuses are concerned. If it is their opinion that his frontal sinuses are significantly contributing to the problem that he is having, I would be happy to do a Flushing procedure and certainly would like to undertake this. If, on the other hand, they have any other ideas in terms of medical management or other thoughts in terms of what would be more appropriate surgically, I would defer to their experience. I appreciate the chance to see him. I will follow up with you and keep you posted. I will undertake to make sure that Mr. Solano is seen very quickly in their clinic, although he does have a 3-week vacation, currently planned in [place], and will be doing nothing until that is complete. Thank you again. Yours sincerely, Carlos Martinez M.D. KAYLYN / [id number] / [id number] / [id number] / C: 01/13/2001 tristin C: 01/19/2001 pedro [id number] signed by Interface, Acidizer Water Well In at 02/09/2006 2:25 AM PDTdocume nted in this encounter Plan of Treatment Not on filedocumented as of this encounter Visit Diagnoses Not on filedocumented in this encounter"
--- OUTSIDE RECORDS SUMMARY | ~2018-10-01 | XMS | Encounter Summary ---
Demographics + + + | Address | [address] | | | [place] [address] | + + + | Home Phone [...] Team Providers + +------+ + | Care Can Conveyor Feeder Name | Role | Phone | + +------+ + PCP | Unavailable | + +------+ + Encounter Details +--------+ + + + + | Date | Type | Department | Care Team | Description | +--------+ + + + + | 03/18/ | Office | | Note, Outpatient | Progress Note | | 2002 | Visit-Trans | | Clinic | | [...] as of this encounter Progress Notes Interface, Dementia Program Director In - 12/03/2005 1:04 AM PDTCLINIC DATE: 03/18/2002 OTOLARYNGOLOGY CLINIC HISTORY: Mr. Rittenbach is a 61-year-old gentleman with a history of chronic frontal and maxillary sinus disease. He is 1 year status post revision surgery and was last seen 3 months ago. He states that he has been infection free and has been doing quite well; although, he is concerned about the coming months and risk of infection. PROCEDURE: Diagnostic nasal endoscopy. ANESTHESIA: Lidocaine 4%. DESCRIPTION OF PROCEDURE: Using a 4-mm, 30-degree rigid nasal endoscope, the right and left nasal cavities were examined. The maxillary ostia were scarred circumferentially and narrow, but patent. Sphenoid sinuses were widely patent as well as the ethmoid cavities. Middle turbinates were conspicuously absent bilaterally. The nasofrontal ducts were patent bilaterally on the right side. The duct was somewhat smaller but still well mucosalized and functioning well. IMPRESSION: Stable and doing well status post revision sinus surgery. PLAN: The patient to follow up in 6 months. He has to continue his current sinus irrigations. He was given prescriptions for Augmentin and steroids to use in case of infection. Richie Olivier M.D. Resident, Department of Otolaryngology/Head and Neck Surgery / HS [id number] / [id number] / [id number] / Ortiz, Dementia Program Director In - 12/03/2005 1:04 AM PDTCLINIC DATE: 03/18/2002 OTOLARYNGOLOGY CLINIC HISTORY: Neil returns today for followup of chronic frontal sinusitis. He is now 1 year postop. He is doing very well, and he has not had any infections recently. He can use irrigations. I saw the patient today with Dr. Olivier and performed nasal endoscopy. Please see Dr. Olivier' note for complete details of today's visit. In summary, Neil is doing well with patent frontal sinuses bilaterally. He will follow up in 6 months. Bal Medina M.D. / HS [id number] / [id number] / [id number] / Tdocumented in this encounter Plan of Treatment Not on filedocumented as of this encounter Visit Diagnoses Not on filedocumented in this encounter"
--- OUTSIDE RECORDS SUMMARY | ~2018-10-01 | XMS | Encounter Summary ---
Demographics + + + | Address | [address] | | | [place] [address] | + + + | Home Phone [...] Team Providers + +------+ + | Care Directional Bore Operator Name | Role | Phone | + +------+ + PCP | Unavailable | + +------+ + Encounter Details +--------+ + + + + | Date | Type | Department | Care Team | Description | +--------+ + + + + | 12/16/ | Office | | Note, Outpatient | [...] of this encounter Progress Notes Interface, Enterprise Sales Person In - 10/24/2005 3:03 AM PDTCLINIC DATE: 12/16/2002 OTOLARYNGOLOGY CLINIC Mr. Meléndez returns today for followup of persistent sinusitis and chronic drainage. I saw the patient today with Dr. Ramon and performed nasal endoscopy. Please see Dr. Ramon's note for complete details of today's visit. Although the patient has crusting in the frontal area, he does not have symptoms in this area. Instead, it appears that the drainage is coming from maxillary sinuses and possibly the sphenoid sinuses. These areas were cultured today, and culture-directed antibiotics will be provided. He will return with a CT scan of the sinuses as he may need ( ) antrostomies bilaterally and a possible revision sphenoid surgery. Bal Medina M.D. PH / HS [id number] / [id number] / [id number] / [id number] Ortiz, Enterprise Sales Person In - 10/24/2005 3:03 AM PDTCLINIC DATE: 12/16/2002 OTOLARYNGOLOGY CLINIC SUBJECTIVE: The patient returns today. History of a mild frontal sinusitis and history of maxillary sinusitis. He was last seen by Dr. Medina in September 2002. At that time, he had had persistent nasal drainage, but no frontal headache or symptoms. Today, he continues to have complaints of thick nasal secretions. These are yellow to orange in nature. He is quite concerned about these. He does not have any forehead or facial pressure complaints at this time. PROCEDURE: Diagnostic nasal endoscopy. ANESTHESIA: Lidocaine 4% with oxymetazoline. FINDINGS: A 4-mm 30-degree endoscope was advanced into the right nasal cavity. There were noted purulent secretions emanating from the right frontal recess. There was some edematous change here as well. Within the ethmoid cavity, there were some purulent yellow secretions. These were suctioned into a trap. Left nasal cavity had similarly some purulent yellow-white drainage coming from the frontal recess. This was suctioned as there was some fluid within the left sphenoid sinus. This was suctioned into the trap. This specimen was sent off for culture and sensitivity. At this time, also attempts were made to inject some Cipro HC Otic via ( ) suction into both recesses; however, there was a degree of edema which did not allow injection directly into the sinus. IMPRESSION AND PLAN: History of chronic sinusitis. Cultures were sent off. We will await the return of these results. The patient is to continue his TobraDex nasal spray and sinus nasal irrigations as well his steroid nasal spray. He was also given a prescription for Septra to be used twice a day. He will call for the culture results. The patient was seen with Dr. Medina. Kahlil Ramon M.D. Bal Medina M.D. MZ / BERNARD [id number] / [id number] / [id number] / [id number] Tdocumented in this encounter Plan of Treatment Not on filedocumented as of this encounter Visit Diagnoses Not on filedocumented in this encounter"
--- OUTSIDE RECORDS SUMMARY | ~2018-10-01 | XMS | Encounter Summary ---
Demographics + + + | Address | [address] | | | [place] [address] | + + + | Home Phone | | + + + | Preferred Language | Unknown | + + + | Marital Status | | + + + | Temple Affiliation | Unknown | + + + [...] Team Providers + +------+ + | Care Maintenance Machine Repairer Name | Role | Phone | + [...]
--- OUTSIDE RECORDS SUMMARY | ~2018-10-01 | XMS | Encounter Summary ---
Demographics + + + | Address | [address] | | | [place] [address] | + + + | Home Phone [...] Team Providers + +------+ + | Care Gill Box Operator Name | Role | Phone | + +------+ + PCP | Unavailable | + +------+ + Encounter Details +--------+ + + + + | Date | Type | Department | Care Team | Description | +--------+ + + + + | 08/14/ | Transcribed | UNKNOWN DEPARTMENT | Dictation, Other | Transcribed | | 1993 | | [address] [facility] | | | | | | [facility] | | | | | | [place], [place] | | | | | | [address] | | | +--------+ + + + [...] as of this encounter Progress Notes Interface, Associate Veterinarian In - 09/03/2006 3:06 AM PDT [address] [address] [facility] August 14, 1992 PIERRE SERRANO MD [address] [place] [address] RE:Yuval Meléndez MR#:[id number] Serrano: Mr. Meléndez was seen on August 12, 1993, in [facility] Pulmonary Clinic by myself and Dr. [...]
--- OUTSIDE RECORDS SUMMARY | ~2018-10-01 | XMS | Encounter Summary ---
Demographics + + + | Address | [address] | | | [place] [address] | + + + | Home Phone | | + + + | Preferred Language | Unknown | + + + | Marital Status | | + + + | Anglican Affiliation | Unknown | + + + | Race | White | + + + | Ethnic Group | Not or | + + + Author + + + | Author | [facility] | + + + | Organization | [facility] | + + + | Address | Unknown | + + + | Phone | Unavailable | + + + Support + + +---------+ + | Name | Relationship | Address | Phone | + + +---------+ + | Nunu Meléndez | ECON | Unknown | | + + +---------+ + Care Team Providers + +------+ + | Care Child Attendant Name | Role | Phone | + [...] PPV [address] | [facility] | | | | | [place] | [place] [address] | | | | | Road Mailcode: PV01 | | | | | | Physician's | | | | | | [place] | | | | | | [place] [address] | | | | | | [phone] | | | +--------+ + + + [...] | + + + + + | [facility] | [address] | [place] [address] | | | LAB-MICRO | | | [...] + + + | [facility] | [address] | [place] [address] | | | LAB-MICRO | | | [...] + + + | [facility] | [address] | [place] [address] | | | LAB-MICRO | | | [...] | + + + + + | [facility] | [address] | [place] [address] | | | LAB-MICRO | | | | + + + + + documented in this encounter Visit Diagnoses Not on filedocumented in this encounter"
--- OUTSIDE RECORDS SUMMARY | ~2018-10-01 | XMS | Encounter Summary ---
Demographics + + + | Address | [address] | | | [place] [address] | + + + | Home Phone | | + + + | Preferred Language | Unknown | + + + | Marital Status | | + + + | Oriental Orthodox Affiliation | Unknown | + + [...] Team Providers + +------+ + | Care Athletic Gear Custodian Name | Role | Phone | + [...] as of this encounter Progress Notes Interface, Co Founder And President In - 02/09/2006 2:25 AM [facility] [place] [address] [place], [place] [address] or Department of Otolaryngology - PV01 January 25, 2001 Gianni Muniz M.D. [address] [facility] [place] [address] RE: RUPERTO SOLANO MR #: [id number] Dear Jack: At the request of Dr. [...] questions of concerns. Sincerely, Bal Medina M.D. Automotive Service Advisor PH / HS [id number] / [id number] / [id number] / cc: Carlos Martinez M.D. PV-250 Lucien Alonso M.D. [address] [place] [address], [place] [address] [id number] signed by Tammy, Co Founder And President In at 02/09/2006 2:25 AM PDTdocume nted in this encounter Plan of Treatment Not on filedocumented as of this encounter Visit Diagnoses Not on filedocumented in this encounter"
--- OUTSIDE RECORDS SUMMARY | ~2018-10-01 | XMS | Encounter Summary ---
Demographics + + + | Address | [address] | | | [place] [address] | + + + | Home Phone | | + + + | Preferred Language | Unknown | + + + | Marital Status | | + + + | Adventist Affiliation | Unknown | + + + | Race | White | + + + | Ethnic Group | Not or | + + + Author + + + | Author | [facility] | + + + | Organization | [facility] | + + + | Address | Unknown | + + + | Phone | Unavailable | + + + Support + + +---------+ + | Name | Relationship | Address | Phone | + + +---------+ + | Nunu Meléndez | ECON | Unknown | | + + +---------+ + Care Team Providers + +------+ + | Care Material Control Analyst Name | Role | Phone | [...] as of this encounter Progress Notes Interface, C D Reactor Operator In - 02/09/2006 2:25 AM PDTCLINIC DATE: 01/25/2001 OTOLARYNGOLOGY CLINIC REFERRING PHYSICIAN: Carlos Martinez M.D. HISTORY: Mr. Meléndez is a 60-year-old man who has been referred to [facility] by Dr. Gianni Muniz for evaluation [...] Head: Normocephalic and atraumatic. Ears: Normal pinnae, reimbursement auditor canal, and tympanic membranes bilaterally. Nose: [...] the right frontal sinus may require a [place] approach externally. Therefore, Dr. Martinez and I [...] visit. Bal Medina M.D. PH / HS [id number] / [id number] / [id number] / C: 01/28/2001 pedro cc: Gianni Muniz M.D. [address] [facility] [address] Montrell Alonso M.D. [address] [place] [address] [id number] signed by Interface, C D Reactor Operator In at 02/09/2006 2:25 AM PDTdocume nted in this encounter Plan of Treatment Not on filedocumented as of this encounter Visit Diagnoses Not on filedocumented in this encounter
--- OUTSIDE RECORDS SUMMARY | ~2018-10-01 | XMS | Encounter Summary ---
Demographics + + + | Address | [address] | | | [place] [address] | + + + | Home Phone | | + + + | Preferred Language | Unknown | + + + | Marital Status | | + + + | Yarsanism Affiliation | Unknown | + + + | Race | White | + + + | Ethnic Group | Not or | + + + Author + + + | Author | [facility] | + + + | Organization | [facility] | + + + | Address | Unknown | + + + | Phone | Unavailable | + + + Support + + +---------+ + | Name | Relationship | Address | Phone | + + +---------+ + | Nunu Meléndez | ECON | Unknown | | + + +---------+ + Care Team Providers + +------+ + | Care Warranty Clerk Name | Role | Phone | + +------+ + PCP | Unavailable | + +------+ + Encounter Details +--------+ + + + + | Date | Type | Department | Care Team | Description | +--------+ + + + + | 12/29/ | Office | [facility] | Note, [...] as of this encounter Progress Notes Interface, Hearing Aid Specialist In - 02/13/2006 1:03 AM PDTCLINIC DATE: 12/29/2000 [facility] REFERRING PHYSICIAN: Gianni Muniz M.D. CHIEF COMPLAINT: Chronic sinusitis. HISTORY OF PRESENT ILLNESS: The patient is a 60-year-old male who has had chronic sinusitis for as long as he can remember. The patient was referred to us by Dr. Gianni Muniz in [place], [place]. The patient has been followed by Dr. Muniz for a number of years. Since that time, he has had three sinusotomies in 1993, 1997, and 1998. The patient has briefly improved, but then has had recurrence of sinusitis. This includes overgrowth of Pseudomonas and staph aureus infections. 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 He has received immunoglobulin treatment and has improved during the course of the treatment but have done nothing for him in the long run. Currently, the patient complains of having a lot of green secretions and headaches more so on the left than the right. PAST MEDICAL HISTORY 1. Asthma. 2. Chronic sinusitis as noted above. 3. Combined variable immunodeficiency syndrome. 4. Monoclonal gammopathy. 5. Hypoglycemia from an unknown source. The patient states that he has not lost weight and states that at one point or another he has had testing for this. 6. Questionable lung nodule which is thought to be scar tissue. ALLERGIES: No known drug allergies. MEDICATIONS: Advair 500 mcg b.i.d.; Ambien 10 mg q.d.; Celebrex 200 mg b.i.d.; Celexa 20 mg q.d.; chlorhexidine 2 times a day; Flonase 2 times a day; guaifenesin 600 mg 2 times a day; Mirapex 0.25 mg daily; and Ultram 50 mg p.r.n. b.i.d. PAST SURGICAL HISTORY: As noted above. The patient has had three sinusotomies. 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 He has never smoked and he does not drink alcohol. REVIEW OF SYSTEMS: Other than what is noted above, the patient does have pain in his knees, but otherwise as filled up by his questionnaire his review of systems are negative other than noted above. PHYSICAL EXAMINATION: NEUROLOGIC: Cranial nerves 2 through 12 are grossly intact. HEENT: The patient does have some residual numbness over his maxillary sinuses after his sinus surgery. Oropharynx: No lesions. Nasal mucosa is mildly hypertrophied and shows drain secretions. There is no cervical lymphadenopathy. LUNGS: Clear bilaterally. CARDIOVASCULAR: Regular rate and rhythm. PROCEDURE NOTE FOR DR. JONES: Nasopharyngoscopy. The patient was pre-anaesthetized with 1% lidocaine and phenylephrine mist. After this was done, a nasopharyngoscope was then placed through both nares, this revealed thick green secretions. The outlets close to the sphenoid sinuses were widely patent. There is a lot of drain coming from the frontal sinuses. The vocal cords were normal and coapted in the midline. There is no pooling of secretions in the piriform sinuses. ASSESSMENT: Chronic sinusitis status post three operations. A CT scan showed changes consistent with chronic sinusitis with some osseous formation and chronic mucosal changes. PLAN: The patient is to follow up with Dr. Nicole or Dr. Rowley who are the two sinus batch fellows at [facility]. Dr. Jones will personally contact them and review the patient's history. It is thought that medical treatment may be the best option for improvement in the patient's symptoms. The patient has gone on a vacation but will contact Dr. Jones in 2 weeks. MD Carlos Camejo M.D. / BERNARD [id number] / [id number] / [id number] / cc: Gianni Muniz M.D. [address] [facility] [place] [address] [id number] signed by Interface, Hearing Aid Specialist In at 02/13/2006 1:03 AM PDTdocume nted in this encounter Plan of Treatment Not on filedocumented as of this encounter Visit Diagnoses Not on filedocumented in this encounter"
--- OUTSIDE RECORDS SUMMARY | ~2018-10-01 | XMS | Encounter Summary ---
Demographics + + + | Address | [address] | | | [place] [address] | + + + | Home Phone | | + + + | Preferred Language | Unknown | + + + | Marital Status | | + + + | Restorationism Affiliation | Unknown | + + + [...] Team Providers + +------+ + | Care Color Dipper Name | Role | Phone | + [...] as of this encounter Progress Notes Interface, Laser Specialist In - 11/19/2005 3:08 AM PDTCLINIC DATE: [...] months. Bal Medina M.D. PH / HS [id number] / [id number] / [id number] / [id number] Tdocumented in this encounter Plan of Treatment Not on filedocumented as of this encounter Visit Diagnoses Not on filedocumented in this encounter"
--- OUTSIDE RECORDS SUMMARY | ~2018-10-01 | XMS | Encounter Summary ---
Demographics + + + | Address | [address] | | | [place] [address] | + + + | Home Phone | | + + + | Preferred Language | Unknown | + + + | Marital Status | | + + + | Catholic Affiliation | Unknown | + + + | Race | White | + + + | Ethnic Group | Not or | + + + Author + + + | Author | [facility] | + + + | Organization | [facility] | + + + | Address | Unknown | + + + | Phone | Unavailable | + + + Support + + +---------+ + | Name | Relationship | Address | Phone | + + +---------+ + | Nunu Melédnez | ECON | Unknown | | + + +---------+ + Care Team Providers + +------+ + | Care Deoiling Machine Operator Name | Role | Phone [...] as of this encounter Progress Notes Interface, Field Service Analyst In - 02/13/2006 1:03 AM PDTCLINIC DATE: 12/29/2000 [facility] REFERRING PHYSICIAN: Gianni Muniz M.D. CHIEF COMPLAINT: Chronic sinusitis. HISTORY OF PRESENT ILLNESS: The patient is a 60-year-old male who has had chronic sinusitis for as long as he can remember. The patient was referred to us by Dr. Gianni Muniz in [place], [place]. The patient has been followed by [...] are the two sinus batch fellows at [facility]. Dr. Jones will personally contact them and review the patient's history. It is thought that medical treatment may be the best option for improvement in the patient's symptoms. The patient has gone on a vacation but will contact Dr. Jones in 2 weeks. MD Carlos Camejo M.D. / BERNARD [id number] / [id number] / [id number] / cc: Gianni Muniz M.D. [address] [facility] [place] [address] [id number] signed by Interface, Field Service Analyst In at 02/13/2006 1:03 AM PDTdocume nted in this encounter Plan of Treatment Not on filedocumented as of this encounter Visit Diagnoses Not on filedocumented in this encounter"
--- OUTSIDE RECORDS SUMMARY | ~2018-10-01 | XMS | Encounter Summary ---
Demographics + + + | Address | [address] | | | [place] [address] | + + + | Home Phone [...] + + + | Author | [facility] | + + + | Organization | [facility] | + + + | Address | Unknown | + + + | Phone | Unavailable | + + + Support + + +---------+ + | Name | Relationship | Address | Phone | + + +---------+ + | Nunu Meléndez | ECON | Unknown | | + + +---------+ + Care Team Providers + +------+ + | Care Starch Dumper Name | Role | Phone | + +------+ + PCP | Unavailable | + +------+ + Encounter Details +--------+ + + + + | Date | Type | Department | Care Team | Description | +--------+ + + + + | 04/22/ | Office | [facility] | Note, [...] as of this encounter Progress Notes Tammy, Shale Planer Operator Helper In - 01/23/2006 1:08 AM PDTCLINIC DATE: 04/22/2001 OTOLARYNGOLOGY CLINIC Yuval returns today for his postoperative day 1 visit. I saw the patient today with Dr. Pulliam and performed nasoendoscopy. Please see Dr. Pulliam's note for complete details of today's visit. In summary, the sinuses look very good, and I discussed the intraoperative findings of scarring with the patient. We were able to achieve patent frontal sinusotomy bilaterally, but the maxillary antrotomies showed dense scar tissue, and maintenance of patency in these sinuses may be more difficult. He is happy with his outcome thus far, and he will follow up in 1 week. Bal Medina M.D. PH / HS [id number] / [id number] / [id number] / [id number] signed by Tammy, Shale Planer Operator Helper In at 01/23/2006 1:08 AM PDTInt leland, Shale Planer Operator Helper In - 01/23/2006 1:08 AM PDTINIC DATE: 04/22/2001 OTOLARYNGOLOGY CLINIC SUBJECTIVE: The patient is here today for one-day followup after undergoing revision endoscopic maxillary antrostomies and frontal sinusotomies. He reports he had a very night with no pain. He said he is very pleased with the way he is feeling. PROCEDURE: Nasal endoscopy. ANESTHESIA: Lidocaine 4% with phenylephrine. DESCRIPTION OF PROCEDURE: The patient was topically anesthetized, and a 4-mm 30-degree scope was used to examine the nasal cavities. Of note, bilateral maxillary antrostomies were open with minimal crusting. The frontal sinuses were also open bilaterally and looked very healthy. ASSESSMENT: The patient is doing very well. PLAN: He will follow up in one week. Rick Pulliam M.D. CHAITANYA / BERNARD [id number] / [id number] / [id number] / [id number] signed by Interface, Shale Planer Operator Helper In at 01/23/2006 1:08 AM PDTdoc umented in this encounter Plan of Treatment Not on filedocumented as of this encounter Visit Diagnoses Not on filedocumented in this encounter"
--- OUTSIDE RECORDS SUMMARY | ~2018-10-01 | XMS | Encounter Summary ---
Demographics + + + | Address | [address] | | | [place] [address] | + + + | Home Phone [...] Team Providers + +------+ + | Care Electrical Logging Engineer Name | Role | Phone | + +------+ + PCP | Unavailable | + +------+ + Encounter Details +--------+ + + + + | Date | Type | Department | Care Team | Description | +--------+ + + + + | 07/20/ | Office | | Note, Outpatient | [...] as of this encounter Progress Notes Interface, Humanities Professor In - 11/30/2004 10:31 PM PDTClinic Date: 07/21/2003 Clinic: Otolaryngology History: Neil returns today for followup of chronic sinusitis. He was started by his jewelry dipper on Levaquin because of an acute exacerbation of sinusitis. He feels that he is doing better overall on the maintenance prednisone 5 mg every other day. Procedure: Diagnostic nasal endoscopy. Anesthesia: Lidocaine 4%. Description of Procedure: A 4-mm endoscope was used for nasal endoscopy. Thick, opaque, white mucus was suctioned from both maxillary sinuses. The remainder of the sinuses showed mild edema, but no polyposis. Assessment and Plan: Neil does appear to require supplementary anti-inflammatory therapy in the form of oral steroids. This may not be sufficient, and therefore, we will add Pred Forte nasal spray, two sprays b.i.d. He will continue with Flonase as well. We will plan to see him back in a few months to see if this allowed him to achieve better control of his baseline symptoms. If he does not improve with Levaquin, we will pulse him with a prednisone taper next week. Bal Medina M.D. PH / HS [id number] / [id number] / [id number] / Tdocumented in this encounter Plan of Treatment Not on filedocumented as of this encounter Visit Diagnoses Not on filedocumented in this encounter"
--- OUTSIDE RECORDS SUMMARY | ~2018-10-01 | XMS | Encounter Summary ---
Demographics + + + | Address | [address] | | | [place] [address] | + + + | Home Phone | | + + + | Preferred Language | Unknown | + + + | Marital Status | | + + + | Jainism Affiliation | 1001 | + + + | Race | Unknown | + + + | Ethnic Group | Unknown | + + + Author + + + | Author | [facility] | + + + | Organization [...] Team Providers + +------+ + | Care Metal Fabricating Shop Helper Name | Role | Phone | + +------+ + | Lucien Alonso MD | PCP | | + +------+ + Reason for Visit Recurring Treatment (Routine) + +--------+ + + + + | Status | Reason | Specialty | Diagnoses / | Referred By | Referred To | | | | | Procedures | Contact | Contact | + +--------+ + + + + | Authorized | | | Diagnoses | Edwige | Destini | | | | | | MD Scar | Outpatient | | | | | Eosinophilic | [address] | Procedures | | | | | asthma | [address] | [address] | | | | | ([facility]LY [facility]) | [address] | | | | | Procedures | [place] [address] | [place] | | | | | [place] | Phone: | [phone] Phone: | | | | | INJECTION, | [phone] | [phone] | | | | | MEPOLIZUMAB, | Fax: | | | | | | 1MG | [phone] | | + +--------+ + + + + Encounter Details +--------+ + + + + | Date | Type | Department | Care Team | Description | +--------+ + + + + | 07/29/ | Hospital | [facility] | Scar Gibbons MD | Eosinophilic asthma | | 2019 | Encounter | [facility] | [address] | ([facility]) | | | | Outpatient | [place] [address] | | | | | Procedures [address] | [phone] | | | | | [address] | | | | | | [place] [address] | | | | | | [phone] | | | +--------+ + + + [...] + + + | Blood Pressure | 130/78 | 07/29/2018 10:18 AM PDT | + + + + | Pulse | 79 | 07/29/2018 10:18 AM PDT | + + + + | Temperature | 36.8 C (98.2 F) | 07/29/2018 10:18 AM PDT | + + + + | Respiratory Rate | 16 | 07/29/2018 10:18 AM PDT | + + + + | Oxygen Saturation | 96% | 07/29/2018 10:18 AM PDT | + + + + | Inhaled Oxygen | - | - | | Concentration | | | + + + + | Weight | - | - | + + + + | Height | - | - | + + + + | Body Mass Index | - | - | + + + + in this encounter Medications at Time of Discharge [...] | | | | | [place] [address] | | | | | | [phone] | | | | | | | | +--------+ + + + + | 11/18/ | Appointment | | Scar Gibbons MD | | | 2018 | | | [address] | | | | | | [place] [address] | | | | | | [phone] | | | | | | | | +--------+ + + + + | 12/16/ | Appointment | | Scar Gibbons MD | | | 2018 | | | [address] | | | | | | [place] [address] | | | | | | [phone] | | | | | | | | +--------+ + + + + | 01/17/ | Office | Pulmonology | Scar Gibbons MD | | | 2019 | Visit | | [address] | | | | | | [place] [address] | | | | | | [phone] | | | | | | | | +--------+ + + + + as of this encounter Visit Diagnoses + + | Diagnosis | + + | Eosinophilic asthma (HCC) | + + | Pulmonary eosinophilia | + + Admitting Diagnoses + + | Diagnosis | + + | Eosinophilic asthma (HCC) | + + | Pulmonary eosinophilia | + + Administered Medications + +--------+ +--------+------+ + | Medication Order | MAR | Action | Dose | Rate | Site | | | Action | Date | | | | + +--------+ +--------+------+ + | mepolizumab (NUCALA) injection | Given | | 100 mg | | Left Arm | | 100 mg 100 mg, Subcutaneous, | | 9 09:45 | | | | | Once, [facility] 07/29/18 at 1000, For 1 | | PDT | | | | | dose | | | | | | + +--------+ +--------+------+ + +---+---+ | | | +---+---+ in this encounter"
--- OUTSIDE RECORDS SUMMARY | ~2018-10-01 | XMS | Encounter Summary ---
Demographics + + + | Address | [address] | | | [place] [address] | + + + | Home Phone | | + + + | Preferred Language | Unknown | + + + | Marital Status | | + + + | Episcopalian Affiliation | Unknown | + + + [...] Team Providers + +------+ + | Care Intensive Care Specialist Name | Role | Phone | + +------+ + PCP | Unavailable | + +------+ + Encounter Details +--------+ + + + + | Date | Type | Department | Care Team | Description | +--------+ + + + + | 02/10/ | Office | | Note, Outpatient | [...] as of this encounter Progress Notes Interface, Surplus Property Disposal Agent In - 12/07/2005 1:12 AM PDTCLINIC DATE: 02/10/2002 PROBLEM LIST: IgM monoclonal gammopathy. SUBJECTIVE: Mr. Meléndez is a pleasant 61-year-old white male referred by Dr. Ge for further evaluation of high IgM level. Mr. Meléndez apparently has a lifelong history of severe sinusitis with disease really since he was 10 years old. He has had multiple sinus surgeries and well-documented episodes of sinusitis. He had serum protein electrophores drawn in the late , and he was found to have an IgM monoclonal gammopathy. He underwent bilateral bone marrow aspirates that were negative. He has been closely monitored as he is not any specific therapy. Most recently, his IgM level is up to 1960, and he is concerned about the elevation. He really states otherwise, he has done well. He has occasionally pain in his sinuses 10/11. He also has been found to have 2 kidney stones that are hurting. MEDICATIONS: Ambien, Serevent, Flonase, Cristine, Mirapex, Celebrex, and Paxil. PAST SURGICAL HISTORY: He has had multiple sinus surgeries in 1993, 1996, 1998, and 2000. He is being considered for another one. He has had a history of blood transfusions in the past in 1996. History of measles, mumps, and chicken pox. Denies shingles, tuberculosis, rheumatic fever, or valley fever. FAMILY HISTORY: Father of cancer and diabetes, and mother alive with diabetes. He has 4 siblings. 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 He does not smoke. He does not use alcohol. REVIEW OF SYSTEMS: Positive for head injuries, chronic sinusitis, chronic bronchitis, asthma, kidney stones, prostate disease, bladder disease, arthritis, tension/nervous, headaches, dizziness, blurry vision, ear pain, neck pain, shortness of breath, fevers, chills, sweats, or back pain. He otherwise denies any constitutional, ears, eyes, nose, throat, cardiovascular, respiratory, GI, , musculoskeletal, skin, neurologic, or psychiatric complaints. PHYSICAL EXAMINATION VITAL SIGNS: His weight is 211 pounds, his blood pressure 147/85, heart rate 90, and temperature is 37.5. GENERAL: A healthy-appearing male in no acute distress. HEENT: He is normocephalic. He is atraumatic. He has some cerumen. He has normal oral cavity. NECK: No lymphadenopathy and no JVD. LUNGS: Clear. He has good respiratory excursions. COR: Regular rate and rhythm without rubs, gallops, or murmurs. ABDOMEN: Soft without any hepatosplenomegaly, masses, or tenderness. EXTREMITIES: No clubbing, cyanosis, or edema. Robust peripheral pulses. NEUROLOGIC: He is alert and oriented to situation. LABORATORY DATA: Today in clinic, his CBC was normal with a hematocrit of 41.3. He has slight monocytosis of 10%. IMPRESSION 1. IgM monoclonal gammopathy. Mr. Meléndez has an IgM monoclonal gammopathy, and he has an elevated IgM level with no other signs of multiple myeloma. He is typical for these monoclonal gammopathies over the years to have a slight increase or gradual increase in the gammopathy levels. I explained to Mr. Meléndez that the only indication for therapy would be if it is clear this is causing any other signs and symptoms. He has no evidence of renal disease, no evidence of bone disease, and he still remains at this normal blood count. Therefore, I would continue to follow him expectantly. I would also not be surprised if at all it even got higher. I have seen many patients with IgM monoclonal gammopathies with 4000 to 5000 to 6000. Again, the chaidez for therapy is signs of end-organ damage or symptomatology. He currently remains stable. He has had a documented low IgG, especially IgG subclass in the past. Given his history of chronic sinusitis, I think it would be prudent after his next sinus surgery to consider continuing him on low-dose IgG therapy. I believe again a low-dose therapy would not interfere with monoclonal gammopathy and may be a benefit for him. I will relay to him and his physician the results of testing. I will repeat the SPEP today. Dereck Zhong M.D. design project manager JOSE E / BERNARD [id number] / [id number] / [id number] / cc: Ralph Baird M.D. [address] [id number] signed by Interface, Surplus Property Disposal Agent In at 12/07/2005 1: 12 AM PDTdocumented in this encounter Plan of Treatment Not on filedocumented as of this encounter Visit Diagnoses Not on filedocumented in this encounter"
--- OUTSIDE RECORDS SUMMARY | ~2018-10-01 | XMS | Encounter Summary ---
Demographics + + + | Address | [address] | | | [place] [address] | + + + | Home Phone | | + + + | Preferred Language | Unknown | + + + | Marital Status | | + + + | Holiness Affiliation | Unknown | + + + [...] Team Providers + +------+ + | Care Cement Crusher Operator Name | Role | Phone | [...] as of this encounter Progress Notes Interface, Hospice Clinical Supervisor In - 10/20/2005 3:03 AM PDTCLINIC DATE: [...] bilaterally. Bal Medina M.D. PH / HS [id number] / [id number] / [id number] / [id number] Tdocumented in this encounter Plan of Treatment Not on filedocumented as of this encounter Visit Diagnoses Not on filedocumented in this encounter"
--- OUTSIDE RECORDS SUMMARY | ~2018-10-01 | XMS | Encounter Summary ---
Demographics + + + | Address | [address] | | | [place] [address] | + + + | Home Phone | | + + + | Preferred Language | Unknown | + + + | Marital Status | | + + + | Rastafarian Affiliation | Unknown | + + + | Race | White | + + + | Ethnic Group | Not or | + + + Author + + + | Author | [facility] | + + + | Organization | [facility] | + + + | Address | Unknown | + + + | Phone | Unavailable | + + + Support + + +---------+ + | Name | Relationship | Address | Phone | + + +---------+ + | Nunu Meléndez | ECON | Unknown | | + + +---------+ + Care Team Providers + +------+ + | Care Fan Mail Editor Name | Role | Phone | + +------+ + PCP | Unavailable | + +------+ + Encounter Details +--------+ + + + + | Date | Type | Department | Care Team | Description | +--------+ + + + + | 09/19/ | Office | [facility] | Clinic, | Progress Note | | 2005 | Visit-Trans | | Otolaryngology | | [...] as of this encounter Progress Notes Interface, Agricultural Chemicals Inspector In - 12/01/2004 11:04 AM PDT [id number] [facility] Date: 09/19/2004 Clinic: Otolaryngology Mr. Meléndez back returns today for a 6-month followup visit for chronic sinusitis. He had one infection in the last 6 months, it was about 3 months ago, and he was treated with a month of Cipro and a steroid taper and did reasonably well from that. At this point, he is only taking 1 mg of prednisone every other day. He still doing the Pred Forte and Flonase sprays. He is feeling at his baseline today and feels that this is probably about as good as he is going to get. Procedure: Diagnostic nasal endoscopy. Anesthesia: Topical lidocaine 4%. Description of Procedure: A 4-mm 30-degree endoscope was inserted first into the right nasal cavity which shows a contracted maxillary sinus and patent ethmoid and sphenoid sinus ostia with a partially resected middle turbinate. There were no secretions from the left side. There was mucociliary clearance of some secretions, and we could also see the contracted maxillary sinus, patent ethmoid cavity, and partially resected middle turbinate as well as the patent sphenoid sinus. Assessment and Plan: This gentleman is doing quite well with regard to his chronic sinusitis, and in fact, we can stop the prednisone at this time. We have also given him a prescription for Cipro, so that when he gets an infection he can start it immediately. He will continue on the Pred Forte and Flonase sprays and the saline irrigation that he has still been taking. He is also going to purchase some more xylitol as he thinks this helps a little bit. He has been advised to call our office in December 2004 and schedule an appointment to see Dr. Mario Richards as a 6-month followup appointment to establish care with Dr. iRchards. This patient was seen and examined with Dr. Bal Medina. Ofelia Jones M.D. Bal Medina M.D. Director, [facility] Bicycle Repairer of Otolaryngology/Head and Neck Surgery / [id number] / [id number] / [id number] / [id number] Electronically signed by Bal Medina 09-30-2004 03:08:26 PM documented i n this encounter Plan of Treatment Not on filedocumented as of this encounter Visit Diagnoses Not on filedocumented in this encounter"
--- OUTSIDE RECORDS SUMMARY | ~2018-10-01 | XMS | Encounter Summary ---
Demographics + + + | Address | [address] | | | [place] [address] | + + + | Home Phone | | + + + | Preferred Language | Unknown | + + + | Marital Status | | + + + | Faith Affiliation | Unknown | + + + | Race | White | + + + | Ethnic Group | Not or | + + + Author + + + | Author | [facility] | + + + | Organization | [facility] | + + + | Address | Unknown | + + + | Phone | Unavailable | + + + Support + + +---------+ + | Name | Relationship | Address | Phone | + + +---------+ + | Nunu Meléndez | ECON | Unknown | | + + +---------+ + Care Team Providers + +------+ + | Care Special Services Supervisor Name | Role | Phone | [...] as of this encounter Progress Notes Interface, Emergency Preparedness Coordinator In - 12/01/2004 11:04 AM PDT [id number] [facility] Date: 09/19/2004 Clinic: Otolaryngology [...] followup appointment to establish care with Dr. Richards. This patient was seen and examined with Dr. Bal Medina. Ofelia Jones M.D. Bal Medina M.D. Director, [facility] Parts Room Assistant of Otolaryngology/Head and Neck Surgery / [id number] / [id number] / [id number] / [id number] Electronically signed by Bal Medina 09-30-2004 03:08:26 PM documented i n this encounter Plan of Treatment Not on filedocumented as of this encounter Visit Diagnoses Not on filedocumented in this encounter"
--- OUTSIDE RECORDS SUMMARY | ~2018-10-01 | XMS | Encounter Summary ---
Demographics + + + | Address | [address] | | | [place] [address] | + + + | Home Phone [...] Team Providers + +------+ + | Care Drafter Detail Name | Role | Phone | + [...] as of this encounter Progress Notes Interface, Coach Cleaner In - 02/09/2006 2:25 AM [facility] [place] [address] [place], [place] [address] or Department of Otolaryngology - PV01 December 29, [address] M[address] [facility] [place] [place], [place] [address] RE: RUPERTO SOLANO MR #: [id number] Dear Jack: I saw Mr. Solano in consultation today regarding his chronic sinusitis and a question of whether frontal sinus [place] procedure would be helpful to him. I [...] obliterated on the left side. Although, a [place] procedure would likely be possible on Mr. [...] I would be happy to do a [place] procedure and certainly would like to undertake [...] have a 3-week vacation, currently planned in [place], and will be doing nothing until that is complete. Thank you again. Yours sincerely, Carlos Martinez M.D. KAYLYN / [id number] / [id number] / [id number] / C: 01/13/2001 tristin C: 01/19/2001 pedro [id number] signed by Interface, Coach Cleaner In at 02/09/2006 2:25 AM PDTdocume nted in this encounter Plan of Treatment Not on filedocumented as of this encounter Visit Diagnoses Not on filedocumented in this encounter"
--- OUTSIDE RECORDS SUMMARY | ~2018-10-01 | XMS | Encounter Summary ---
Demographics + + + | Address | [address] | | | [place] [address] | + + + | Home Phone [...] Providers + +------+ + | Care Lawn Mower Repairer Name | Role | Phone | + +------+ + PCP | Unavailable | + +------+ + Encounter Details +--------+ + + + + | Date | Type | Department | Care Team | Description | +--------+ + + + + | 04/21/ | Procedure - | | Record, Operation | Operative Report | | 2000 | | | | | | | Transcribed | | | | +--------+ + + [...] | + +--------+ + + + | OPERATION RECORD | | 04/21/2001 | | Results for this | | | | | | procedure are in the | | | | | | results section. | + +--------+ + + + documented in this encounter Results OPERATION RECORD (04/21/2001) + + | Transcriptions | + + | Interface, Spreader Operator Automatic In - 01/19/2006 2:25 AM PDT | | [facility] [address] | | [place], [place] [address] | | [facility] Center[facility]ATION RECORDMed Rec No.: | | [id number] Date: 04/21/2001Name: Neil Meléndez SURGEON: | | Bla Medina M.D.PROGRAM ENGAGEMENT DIRECTOR(S): Rick Pulliam, | | CeceliaPREOPERATIVE DIAGNOSIS(ES):1. Chronic maxillary sinusitis bilaterally.2. Chronic | | frontal sinusitis.POSTOPERATIVE DIAGNOSIS(ES):Same.PROCEDURE(S) PERFORMED:1. Bilateral | | revision endoscopic maxillary sinusotomies with tissue removal.2. Bilateral | | revision endoscopic frontal sinuosotomies.3. Computer-guided stereotactic | | navigation.INDICATIONS:The patient has undergone three prior endoscopic sinus | | surgeries and hasopacification of his frontal sinuses secondary to scarring of the | | middleturbinate to the lateral wall. One of his procedures was a Drummond-Lucand he | | has a tremendous amount of scarring in bilateral maxillary sinuses.He has purulent | | drainage from maxillary sinuses.FINDINGS:1. Markedly contracted maxillary sinuses | | bilaterally with very small lumens identified. There was bilateral infection | | in the maxillary sinuses.2. Frontal sinuses obstructed by scarring from the | | middle turbinates. There were purulent secretions in both frontal | | sinuses.SPECIMEN(S):Left and right sinus | | contents.ANESTHESIA:General.COMPLICATIONS:None.PROCEDURE:The patient was brought to the | | operating room and placed on the operatingtable in the supine position. After | | adequate IV sedation was given, thepatient was orally intubated. The landmark | | navigational system was set upand the instruments were calibrated. Starting on the | | left, the lateralnasal wall was injected with 1% Lidocaine with 1:100,000 | | epinephrine.Under endoscopic visualization, the navigation system was used to | | identifythe skull base posterior to the scarred middle turbinate. This also helpedto | | identify the maxillary sinus. The small lumen was identified and usinga 30 degree | | telescope the lumen was enlarged using curved microdebridersand cutting instruments. | | Attention was then turned to the frontal sinus.The skull base was followed anteriorly | | under computer navigation and thefrontal sinus was entered. There was noted to be | | a tremendous amount ofbony narrowing of the sinus. Using a 30 degree telescope and the | | drill andfrontal Kerrison, the frontal sinusotomy was enlarged. It was noted to | | bequite large and a curved suction was able to be passed into it. Thefrontal | | recess was virtually circumferentially mucosalized.Attention was then turned to the | | right. There was a very small maxillarysinus lumen which was enlarged and purulent | | secretions were removed. Thesinusotomy was enlarged with cutting instruments. | | Next, using theGenwordser navigational system, the skull base was identified and | | followedanteriorly into the frontal recess. A frontal seeker was able to be passedinto | | the frontal sinus and this opening was enlarged. This was done underendoscopic | | visualization. A curved suction was able to be passed into thefrontal sinus at the | | completion of the enlargement. Topical Mitomycin-Cwas then placed on neuropatties | | and placed into the bilateral maxillarysinuses and frontal sinuses. They were left | | in place for five minutes.The frontal sinuses were then packed with steroid gel. | | The patient wasthen awakened and brought to the Post Anesthesia Care Unit in | | satisfactorycondition. There were no complications.Pursuant to federal Medicare | | regulations, Dr. Bal Medina was present forthe entire procedure.Rick Pulliam M.D. | | Bal Medina M.D.BUFFY/x65D:04/21/2001T:04/21/2001C: | | 05/05/2001 [id number] | |General. | | | |COMPLICATIONS: | |None. | | | |PROCEDURE: | |The patient was brought to the operating room and placed on the operating | |table in the supine position. After adequate IV sedation was given, the | |patient was orally intubated. The landmark navigational system was set up | |and the instruments were calibrated. Starting on the left, the lateral | |nasal wall was injected with 1% Lidocaine with 1:100,000 epinephrine. | |Under endoscopic visualization, the navigation system was used to identify | |the skull base posterior to the scarred middle turbinate. This also helped | |to identify the maxillary sinus. The small lumen was identified and using | |a 30 degree telescope the lumen was enlarged using curved microdebriders | |and cutting instruments. Attention was then turned to the frontal sinus. | | | |The skull base was followed anteriorly under computer navigation and the | |frontal sinus was entered. There was noted to be a tremendous amount of | |bony narrowing of the sinus. Using a 30 degree telescope and the drill and | |frontal Kerrison, the frontal sinusotomy was enlarged. It was noted to be | |quite large and a curved suction was able to be passed into it. The | |frontal recess was virtually circumferentially mucosalized. | | | |Attention was then turned to the right. There was a very small maxillary | |sinus lumen which was enlarged and purulent secretions were removed. The | |sinusotomy was enlarged with cutting instruments. Next, using the | |computer navigational system, the skull base was identified and followed | |anteriorly into the frontal recess. A frontal seeker was able to be passed | |into the frontal sinus and this opening was enlarged. This was done under | |endoscopic visualization. A curved suction was able to be passed into the | |frontal sinus at the completion of the enlargement. Topical Mitomycin-C | |was then placed on neuropatties and placed into the bilateral maxillary | |sinuses and frontal sinuses. They were left in place for five minutes. | |The frontal sinuses were then packed with steroid gel. The patient was | |then awakened and brought to the Post Anesthesia Care Unit in satisfactory | |condition. There were no complications. | | | |Pursuant to federal Medicare regulations, Dr. Bal Medina was present for | |the entire procedure. | | | | | | | |Rick Pulliam M.D. Bal Medina M.D. | | | |DK/x65 | | | | | |C: 05/05/2001 leb | |[id number] | + + documented in this encounter Visit Diagnoses Not on filedocumented in this encounter"
--- OUTSIDE RECORDS SUMMARY | ~2018-10-01 | XMS | Encounter Summary ---
Demographics + + + | Address | [address] | | | [place] [address] | + + + | Home Phone | | + + + | Preferred Language | Unknown | + + + | Marital Status | | + + + | Samaritan Affiliation | 1001 | + + + | Race | Unknown | + + + | Ethnic Group | Unknown | + + + Author + + + | Author | [facility] [facility] | + + + | Organization [...] Team Providers + +------+ + | Care Academic Tutor Name | Role | Phone | + [...] [address] | | | | | ([facility]) | [address] [address] | | | | | Procedures | [place] [address] | [place] | | | | | [place] | Phone: | [phone] Phone: | | | | | INJECTION, | [phone] | [phone] | | | | | MEPOLIZUMAB, | Fax: | | | | | | 1MG | [phone] | | + +--------+ + + + + Encounter Details +--------+ + + + + | Date | Type | Department | Care Team | Description | +--------+ + + + + | 07/29/ | Hospital | [facility] | Scar Gibbons MD | Eosinophilic asthma | | 2019 | Encounter | [facility] | [address] | ([facility]) | | | | Outpatient | [place] [address] | | | | | Procedures [address] | [phone] | | | | | [address] | | | | | | [place] [address] | | | | | | [phone] | | | +--------+ + + + [...] | | | | | [place] [address] | | | | | | [phone] | | | | | | | | +--------+ + + + + | 11/18/ | Appointment | | Scar Gibbons MD | | | 2018 | | | [address] | | | | | | [place] [address] | | | | | | [phone] | | | | | | | | +--------+ + + + + | 12/16/ | Appointment | | Scar Gibbons MD | | | 2018 | | | [address] | | | | | | [place] [address] | | | | | | [phone] | | | | | | | | +--------+ + + + + | 01/17/ | Office | Pulmonology | Scar Gibbons MD | | | 2019 | Visit | | [address] | | | | | | [place] [address] | | | | | | [phone] | | | | | | | [...] 09:45 | | | | | Once, [facility] 07/29/18 at 1000, For 1 | | PDT | | | | | dose | | | | | | + +--------+ +--------+------+ + +---+---+ | | | +---+---+ in this encounter"
--- OUTSIDE RECORDS SUMMARY | ~2018-10-01 | XMS | Encounter Summary ---
Demographics + + + | Address | [address] | | | [place] [address] | + + + | Home Phone [...] Team Providers + +------+ + | Care Senior Office Assistant Name | Role | Phone | + [...] as of this encounter Progress Notes Interface, [place] In - 09/29/2005 1:00 AM PDTClinic Date: [...] months. Bal Medina M.D. PH / HS [id number] / [id number] / [id number] / [id number] Tdocumented in this encounter Plan of Treatment Not on filedocumented as of this encounter Visit Diagnoses Not on filedocumented in this encounter"
--- OUTSIDE RECORDS SUMMARY | ~2018-10-01 | XMS | Encounter Summary ---
Demographics + + + | Address | [address] | | | [place] [address] | + + + | Home Phone | | + + + | Preferred Language | Unknown | + + + | Marital Status | | + + + | Baptism Affiliation | Unknown | + + + | Race | White | + + + | Ethnic Group | Not or | + + + Author + + + | Author | [facility] | + + + | Organization | [facility] | + + + | Address | Unknown | + + + | Phone | Unavailable | + + + Support + + +---------+ + | Name | Relationship | Address | Phone | + + +---------+ + | Nunu Meléndez | ECON | Unknown | | + + +---------+ + Care Team Providers + +------+ + | Care Bid Analyst Name | Role | Phone | + +------+ + PCP | Unavailable | + +------+ + Encounter Details +--------+ + + + + | Date | Type | Department | Care Team | Description | +--------+ + + + + | 09/09/ | Transcribed | UNKNOWN DEPARTMENT | Dictation, Other | Transcribed | | 1993 | | [address] [facility] | | | | | | [facility] | | | | | | [place], [place] | | | | | | [address] | | | +--------+ + + + [...] as of this encounter Progress Notes Interface, Stud Dairy Cattle Farmer In - 09/03/2006 3:06 AM PDT [address] [address] [facility] September 09, 1992 PIERRE SERRANO M.D. [address] [place] [address] [address] [facility] [id number] RE: Yuval Meléndez MR#: [id number] Dear Doctor [...] let me know. Sincerely, Alhaji Flores M.D. Security Supervisor, Medicine Division of Pulmonary & Critical Care [employer]:arielle September 10, 1992 documented in this encounter Plan of Treatment Not on filedocumented as of this encounter Visit Diagnoses Not on filedocumented in this encounter"
--- OUTSIDE RECORDS SUMMARY | ~2018-10-01 | XMS | Encounter Summary ---
Demographics + + + | Address | [address] | | | [place] [address] | + + + | Home Phone | | + + + | Preferred Language | Unknown | + + + | Marital Status | | + + + | Scientology Affiliation | 1001 | + + + | Race | Unknown | + + + | Ethnic Group | Unknown | + + + Author + + + | Author | [employer] | + + + | Organization [...] Team Providers + +------+ + | Care Frame Repairer Name | Role | Phone | + +------+ + | Lucien Alonso MD | PCP | | + +------+ + Encounter Details +--------+ + + + + | Date | Type | Department | Care Team | Description | +--------+ + + + + | 09/24/ | Telephone | [facility] | Sue Burris RN | | | 2018 | | Pulmonology [address] | | | | | | [address] | | | | | | [place] | | | | | | [address] | | | | | | [phone] | | | +--------+ + + + [...] [address] | | | | | | [facility] [place] [address] | | | | | | [phone] | | | | | | | | +--------+ + + + + | 11/18/ | Appointment | | Scar Gibbons MD | | | 2019 | | | [address] | | | | | | [facility] [place] [address] | | | | | | [phone] | | | | | | | | +--------+ + + + + | 12/16/ | Appointment | | Scar Gibbons MD | | | 2019 | | | [address] | | | | | | [place] [address] | | | | | | [phone] | | | | | | | | +--------+ + + + + | 01/17/ | Office | Pulmonology | Scar Gibbons MD | | | 2019 | Visit | | [address] | | | | | | [place] [address] | | | | | | [phone] | | | | | | | | +--------+ + + + + as of this encounter Visit Diagnoses Not on filein this encounter"
--- OUTSIDE RECORDS SUMMARY | ~2018-10-01 | XMS | Encounter Summary ---
Demographics + + + | Address | [address] | | | [place] [address] | + + + | Home Phone | | + + + | Preferred Language | Unknown | + + + | Marital Status | | + + + | Zoroastrianism Affiliation | Unknown | + + + | Race | White | + + + | Ethnic Group | Not or | + + + Author + + + | Author | [facility] | + + + | Organization | [facility] | + + + | Address | Unknown | + + + | Phone | Unavailable | + + + Support + + +---------+ + | Name | Relationship | Address | Phone | + + +---------+ + | Nunu Meléndez | ECON | Unknown | | + + +---------+ + Care Team Providers + +------+ + | Care Neuropsychologist Name | Role | Phone | + [...] as of this encounter Progress Notes Interface, Proofer Black And White In - 12/01/2004 8:43 AM PDT [id number] [facility] Date: 04/19/2004 Clinic: Otolaryngology [...] and Pred Fort[place]. Bal Medina M.D. Director, [facility] Quality Lead of Otolaryngology/Head and Neck Surgery PH / HS [id number] / [id number] / [id number] / [id number] documented i n this encounter Plan of Treatment Not on filedocumented as of this encounter Visit Diagnoses Not on filedocumented in this encounter"
--- OUTSIDE RECORDS SUMMARY | ~2018-10-01 | XMS | Encounter Summary ---
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 In general, he has been doing well with only one infection recently. I saw the patient today with Dr. Jones and performed history and nasal endoscopy. Please see Dr. Jones' note for complete details of today's visit. In summary, the sinuses were quite good overall. There was some small amounts of opaque white mucus but no evidence of obvious infection. Prescription for Cipro was given for possible future use. He will return for followup in 6 months. Bal Medina M.D. Director, [facility] [employer] of Otolaryngology/Head and Neck Surgery PH / HS [id number] / [id number] / [id number] / [id number] Electronically signed by Bal Medina 09-30-2004 03:08:31 PM documented i n this encounter Plan of Treatment Not on filedocumented as of this encounter Visit Diagnoses Not on filedocumented in this encounter"
--- OUTSIDE RECORDS SUMMARY | ~2018-10-01 | XMS | Encounter Summary ---
Demographics + + + | Address | [address] | | | [place] [address] | + + + | Home Phone | | + + + | Preferred Language | Unknown | + + + | Marital Status | | + + + | Amish Affiliation | Unknown | + + + [...] Team Providers + +------+ + | Care Lead Applier Name | Role | Phone | + [...] [facility] [address] | Sujey Apar[address] [facility] | | | | | [place] | [place] [address] | | | | | Road Mailcode: PV01 | | | | | | Physician's | | | | | | [place] | | | | | | [place] [address] | | | | | | [phone] | | | +--------+ + + + [...] + + + | [facility] | [address] | [place] [address] | | | LAB-MICRO | | | [...] | + + + + + | [facility] | [address] | [place] [address] | | | LAB-MICRO | | | [...] + + + | [facility] | [address] | [place] [address] | | | LAB-MICRO | | | [...] | + + + + + | [facility] | [address] | [place] [address] | | | LAB-MICRO | | | | + + + + + documented in this encounter Visit Diagnoses Not on filedocumented in this encounter"
--- OUTSIDE RECORDS SUMMARY | ~2018-10-01 | XMS | Clinical Summary ---
Demographics + + + | Address | [address] | | | [place] [address] | + + + | Home Phone | | + + + | Preferred Language | Unknown | + + + | Marital Status | | + + + | Temple Affiliation | 1001 | + + + | Race | Unknown | + + + | Ethnic Group | Unknown | + + + Author + + + | Author | [facility] | | | and [place] | + + + | Organization | [facility] | | | and [place] | + + + | Address | Unknown | + + + | Phone | Unavailable | + + + Support + + + + + | Name | Relationship | Address | Phone | + + + + + | Nunu Meléndez | ECON | [address] | | | K | | [place] | | | | | [address] | | + + + + + | Iain Meléndez | ECON | [address] | | | | | [place] | | | | | [address] | | + + + + + | Sunita Meléndez | SAMIR | Unknown | | + + + + + Care Team Providers + +------+ + | Care Configuration Management Analyst Name | Role | Phone | [...] | + + + + + + Medications + + + +---------+------+------+-------+ | Medication | Sig | Dispensed | Refills | Star | End | Statu | | | | | | t | Date | s | | | | | | Date | | | + + + +---------+------+------+-------+ | pramipexole | Take 0.125 mg by | | 0 | 01/3 | | Activ | | (MIRAPEX) 0.25 mg | mouth 3 times daily | | | 0/20 | | e | | tablet | as needed. | | | 15 | | | + + + +---------+------+------+-------+ | zolpidem (AMBIEN) | Take 1 tablet by | 15 | 0 | 04/0 | | Activ | | 10 mg tablet | mouth nightly as | tablet | | 3/20 | | e | | | needed. | | | 15 | | | + + + +---------+------+------+-------+ | paroxetine (PAXIL) | Take 30 mg by mouth | | 0 | 03/3 | | Activ | | 30 MG tablet | every morning. | | | 0/20 | | e | | | | | | 15 | | | + + + +---------+------+------+-------+ | traMADol (ULTRAM) | Take 50 mg by mouth | | 0 | | | Activ | | 50 mg tablet | every 6 hours as | | | | | e | | | needed for Pain. | | | | | | + + + +---------+------+------+-------+ | ALPRAZolam (XANAX) | Take 0.25 mg by | | 0 | 07/2 | | Activ | | 0.25 mg tablet | mouth nightly as | | | 1/20 | | e | | | needed. | | | 16 | | | + + + +---------+------+------+-------+ | Triamcinolone | 1 spray by Nasal | | 0 | | | Activ | | Acetonide (NASACORT | route Daily. | | | | | e | | ALLERGY 24HR NA) | | | | | | | + + + +---------+------+------+-------+ | SSD 1 % cream | apply topically | | 0 | 01/1 | | Activ | | | daily as directed | | | 2/20 | | e | | | | | | 17 | | | + + + +---------+------+------+-------+ | omeprazole | take 1 capsule by | | 0 | /1 | | Activ | | (PRILOSEC) 20 mg | mouth once daily | | | 2/20 | | e | | capsule | | | | 17 | | | + + + +---------+------+------+-------+ | montelukast | take 1 tablet by | | 0 | 01/1 | | Activ | | (SINGULAIR) 10 mg | mouth once daily | | | 2/20 | | e | | tablet | | | | 17 | | | + + + +---------+------+------+-------+ | budesonide | 1 spray by Nasal | | 0 | | | Activ | | (RHINOCORT ALLERGY) | route Daily. | | | | | e | | 32 mcg/nasal spray | | | | | | | | nasal spray | | | | | | | + + + +---------+------+------+-------+ | | Take 2 tablets by | | 0 | | | Activ | | diphenhydrAMINE-acet | mouth nightly as | | | | | e | | aminophen (TYLENOL | needed. | | | | | | | PM EXTRA STRENGTH) | | | | | | | | 25-500 MG TABS | | | | | | | + + + +---------+------+------+-------+ | amoxicillin | take 4 capsules by | | 0 | 01/1 | | Activ | | (AMOXIL) 500 MG | mouth 1 hour prior | | | 20 | | e | | capsule | to dental | | | 17 | | | | | appointment | | | | | | + + + +---------+------+------+-------+ | buPROPion | Take 100 mg by mouth | | 0 | 02/0 | | Activ | | (WELLBUTRIN) 100 mg | 2 times daily. | | | 07/21 | | e | | tablet | | | | 17 | | | + + + +---------+------+------+-------+ | | Inhale 2 puffs into | 1 | 3 | 09/2 | | Activ | | mometasone-formotero | the lungs Twice | Inhaler | | 09/20 | | e | | l (DULERA) 200-5 | Daily. | | | 17 | | | | mcg/puff inhaler | | | | | | | + + + +---------+------+------+-------+ | | Take by mouth as | | 0 | | | Activ | | Loratadine-Pseudoeph | needed. | | | | | e | | edrine (PX ALLERGY | | | | | | | | RELIEF D, LORATID, | | | | | | | | PO) | | | | | | | + + + +---------+------+------+-------+ | Xylitol POWD | by Does not apply | | 0 | | | Activ | | | route. For sinus | | | | | e | | | problems | | | | | | + + + +---------+------+------+-------+ | predniSONE | Take 2 tablets by [...] | | | | + + + +---------+------+------+-------+ | mirabegron | Take one 25 mg [...] | | | | + + + +---------+------+------+-------+ | tamsulosin | take 1 capsule by | 30 | 0 | 05/1 | | Activ | | (FLOMAX) 0.4 mg CAPS | mouth every evening | capsule | | 5/20 | | e | | | | | | 18 | | | + + + +---------+------+------+-------+ | amitriptyline | Take 10 mg by mouth | | 1 | 05/1 | | Activ | | (ELAVIL) 10 mg | Daily. | | | 5/20 | | e | | tablet | | | | 18 | | | + + + +---------+------+------+-------+ | | Take 1-2 tablets by | 25 | 0 | 05/2 | | Activ | | HYDROcodone-acetamin | mouth every 4 hours | tablet | | 1/20 | | e | | ophen (NORCO) 5-325 | as needed for Pain. | | | 18 | | | | mg per tablet | | | | | | | + + + +---------+------+------+-------+ | COMBIVENT RESPIMAT | Inhale 20-100 mcg | | 0 | 06/2 | | Activ | | 20-100 MCG/ACT | into the lungs 4 | | | 6/20 | | e | | inhaler | times daily. | | | 18 | | | + + + +---------+------+------+-------+ | PARoxetine (PAXIL) | Take 1 tablet by | | 1 | 01/02 | | Activ | | 20 mg tablet | mouth Daily. | | | 4/20 | | e | | | | | | 18 | | | + + + +---------+------+------+-------+ | | Place 1 drop into | | 0 | 09/2 | | Activ | | tobramycin-dexametha | both eyes Daily. | | | 7/20 | | e | | sone (TOBRADEX) | | | | 18 | | | | ophthalmic solution | | | | | | | + + + +---------+------+------+-------+ | traZODone | Take 1 tablet by | | 1 | 09/2 | | Activ | | (DESYREL) 100 mg | mouth Daily. | | | 4/20 | | e | | tablet | | | | 18 | | | + + + +---------+------+------+-------+ | buPROPion | Take 1 tablet by | | 0 | 09/1 | | Activ | | (WELLBUTRIN SR) 150 | mouth Daily. | | | 4/20 | | e | | mg 12 hr tablet | | | | 18 | | | + + + +---------+------+------+-------+ Active Problems + + + | Problem [...] Lateral Mid (less than 1%), 3+4=11/10 Right [place] | | (17%), Right Lateral Mid (30%)Robotic-assisted [...] for urothelial malignancy.CT Urogram 08/19/17 | | [facility] 12/21/[address] [facility] [address] Abd/Pel w/wo 02/08/02 [facility] | | CT Abd w/o [facility]/08[facility] Chest w/o 11/25/[address] [facility] [address] | | Chest/Abd/Pel w 01/13/12 [facility] | | | | 03/11/07 3.42 | | 01/02/06 2.28 | | 12/26/04 2.84 | | 12/20/03 2.21 | | 12/26/02 2.3 | | 12/28/01 1.86 | | | |Prostate biopsy: 02/19/2010 ODL Stage T2c, N0, M0 Adenocarcinoma of the prostate | | GS 3+3= 6/10 Left apex (18%), Left Lateral Mid (less than 1%), | | 3+4=7/10 Right [place] (17%), Right Lateral Mid (30%) | | [...] |CT Urogram 08/19/17 [facility] | | 12/21/15 [facility] | | | |CT Abd/Pel w/wo 02/08/02 [facility] | | | |CT Abd w/o 08/08/10 [facility] | | | |CT Chest w/o 11/25/01 [...] | HOARSENESS | | + + + Immunizations + + + + | Name [...] recent travel history available. | + + Last Filed Vital Signs + + + + | Vital Sign | Reading | Time Taken | + + + + | Blood Pressure | 102/70 | 02/09/2018821 PDT | + + + + | Pulse | 76 | 02/09/2018821 PDT | + + + + | Temperature | 35.9 C (96.6 F) | 09/16/2017 1334 PDT | + + + + | Respiratory Rate | 12 | 02/09/2018821 PDT | + + + + | Oxygen Saturation | 93% | 09/16/2017 1600 PDT | + + + + | Inhaled Oxygen | - | - | | Concentration | | | + + + + | Weight | 85.6 kg (188 lb 11.4 | 02/09/2018821 PDT | | | oz) | | + + + + | Height | 182.9 cm (6' 0.01") | 09/30/2017945 PDT | + + + + | Body Mass Index | 25.59 | 09/30/2017945 PDT | + + + + Plan of Treatment +--------+---------+ + + + | Date | Type | Specialty | Care Team | Description | +--------+---------+ + + + | 12/21/ | Office | | Rick Guan, | | | 2019 | Visit | | MD Priscilla LIU | | | | | | [place] | | | | | | [address] | | | | | | | [...] | + + + + + | Adult Annual | | | | | Wellness Visit | 5 | | | + + + + + | Vaccine: Influenza | | | | | (Season Ended) | 9 | | | + + + + + | Vaccine: | | 07/07/2017 | | | Dtap/Tdap/Td (2 - | 8 | | | | Td) | | | | + + + + + Implants + +------+--------+ +--------+--------+--------+ | Implanted | Type | Area | Manufacture | Device | Shelf | Model | | | | | r | | Expira | / | | | | | | Identi | tion | Serial | | | | | | fier | Date | / Lot | + +------+--------+ +--------+--------+--------+ | Adilson Bone Palacos-R/G 40gm - | | Left: | FREEDOM - | | 12/02/ | 00-111 | | [id number]: Qty: 2 on | | Knee | ZIMM | | 2018 | 3-140- | | 08/01/2014 by [place] | | | | | | 01 / | | MD [place] | | | | | | /[id number] | | | | | | | | 393 | + +------+--------+ +--------+--------+--------+ | Screw Hex 2.5x25mm - | | Left: | FREEDOM - | | 07/02/ | 42-509 | | [id number]: Qty: 1 on | | Knee | ZIMM | | 2024 | 9-025- | | 08/01/2014 by [place] | | | | | | 25 / | | MD [place] | | | | | | /[id number] | | | | | | | | 508 | + +------+--------+ +--------+--------+--------+ | Imp Asf Uc 10mm Ve L 7-12 Gh | | Left: | FREEDOM - | | 05/23/ | 42-512 | | - [id number]: Qty: 1 | | Knee | ZIMM | | 2019 | 2-006- | | on 08/01/2014 by Steven, | | | | | | 10 / | | [place] MD | | | | | | /[id number] | | | | | | | | 193 | + +------+--------+ +--------+--------+--------+ | Imp Knee Ptela Polyeth 38mm - | | Left: | FREEDOM - | | 01/21/ | 42-540 | | [id number]: Qty: 1 | | Knee | ZIMM | | 2021 | 0-000- | | on 08/01/2014 by Steven, | | | | | | 38 / | | [place] MD | | | | | | /[id number] | | | | | | | | 366 | + +------+--------+ +--------+--------+--------+ | Imp Knee Tib 5deg Lt Szh - | | Left: | FREEDOM - | | 07/21/ | 42-532 | | [id number]: Qty: 1 on | | Knee | ZIMM | | 2024 | 0-083- | | 08/01/2014 by [place] | | | | | | 01 / | | MD [place] | | | | | | /[id number] | | | | | | | | 732 | + +------+--------+ +--------+--------+--------+ | Imp Knee Fem Cr Cmt Ccr Sz10 | | Left: | CAP LEY - | | 03/23/ | 42-502 | | L - [id number]: Qty: | | Knee | CAP | | 2023 | 6-068- | | 1 on 08/01/2014 by Steven, | | | | | | 01 / | [place] Seth MD | | | | | | /[id number] | | | | | | | | 869 | + +------+--------+ +--------+--------+--------+ | Imp Knee Tot Adilson Sadv - | | Left: | CAP LEY - | | | OK2A / | | [id number]: Qty: 1 on | | Knee | CAP | | | / | | 08/01/2014 by [place] | | | | | | | | E, MD | | | | | | | + +------+--------+ +--------+--------+--------+ | Imp Totjnt Upch Biom Oks - | | Left: | CAP LEY - | | | OKM-43 | | [id number]: Qty: 1 on | | Knee | CAP | | | 1491 / | | 08/01/2014 by [place] | | | | | | / | | E, MD | | | | | | | + +------+--------+ +--------+--------+--------+ Results Not on filefrom Last 3 Months Insurance + +--------+ +--------+-------+---------+--------+ | Payer | Benefi | Subscriber | Effect | Phone | Address | Type | | | t Plan | ID | emily | | | | | | / | | Dates | | | | | | Group | | | | | | + +--------+ +--------+-------+---------+--------+ | [employer] | [employer] | [id number] | 05/04/19 | | | Medica | | | HEALTH | | 17-Pre | | | re | | | MDCR | | sent | | | | + +--------+ +--------+-------+---------+--------+ + +--------+ +--------+ + + | Guarantor Name | Accoun | Relation to | Date | Phone | Billing Address | | | t Type | Patient | of | | | | | | | | | | + +--------+ +--------+ + + | Neil Meléndez | Person | Self | [birth year] | [address] | | [place] | | 1941 | [phone] | [address] [place] | | | lu | | | [address] (Home) | [address] | + +--------+ +--------+ + + Advance Directives Patient has advance care planning documents, and code status on file. For more information, please contact:[facility] [place] [address] + + + + + | Code Status | Date | Date | Comments | | | Activated | Inactivated | | + + + + + | Full Code | 09/16/2017 | 09/16/2017 | | | | 14:28 | 19:16 | | + + + + + + + + +---+ | | | | | + + + +---+ | Full Code | 08/01/2014 | 08/04/2014 | | | | 11:46 | 20:09 | | + + + +---+
--- OUTSIDE RECORDS SUMMARY | ~2018-10-01 | XMS | Encounter Summary ---
Demographics + + + | Address | [address] | | | [place] [address] | + + + | Home Phone | | + + + | Preferred Language | Unknown | + + + | Marital Status | | + + + | Confucianism Affiliation | Unknown | + + + | Race | White | + + + | Ethnic Group | Not or | + + + Author + + + | Author | [facility] | + + + | Organization | [facility] | + + + | Address | Unknown | + + + | Phone | Unavailable | + + + Support + + +---------+ + | Name | Relationship | Address | Phone | + + +---------+ + | Nunu Meléndez | ECON | Unknown | | + + +---------+ + Care Team Providers + +------+ + | Care Leather Staker Name | Role | Phone | + +------+ + PCP | Unavailable | + +------+ + Encounter Details +--------+ + + + + | Date | Type | Department | Care Team | Description | +--------+ + + + + | 02/10/ | Results | Hematology | [place], | | | 2001 | Only | Oncology [address] | MD [address] | | | | | [address] | [address] [address] [place], | | | | | Road Mailcode: | [place] [address] | | | | | [address] | [phone] | | | | | [place], | | | | | | [place] [address] | | | | | | [phone] | | | +--------+ + + + [...] | + +--------+ + + + | GIN-ICRYWIA-IMVF,SER | Routin | 02/10/2002 | | Results for this | | UM | e | 3:25 PM | | procedure are in the | | | | PDT | | results section. | + +--------+ + + + | IMMUNOFIXATION, | Routin | 02/10/2002 | | Results for this | | SERUM | e | 3:25 PM | | procedure are in the | | | | PDT | | results section. | + +--------+ + + + | PROTEIN | Routin | 02/10/2002 | | Results for this | | ELECTROPHORESIS, | e | 3:25 PM | | procedure are in the | | SERUM, WITH REFLEX | | PDT | | results section. | | TO IMMUNOFIXATION | | | | | + +--------+ + + + documented in this encounter Results GVL-PHKLXQM-HNHO,SERUM (02/10/2002 3:25 PM PDT) + +-------+ + + + | Component | Value | Ref Range | Performed | Pathologist | | | | | At | Signature | + +-------+ + + + | TOTAL | 7.3 | 6.4 - 8.0 g/dL | | | | PROTEIN, | | | | | | SERUM - | | | | | | SPEP | | | | | + +-------+ + + + + + | Specimen | + + | | + + + + + | Narrative | Performed At | + + + | Protein Electrophoresis, Serum Test performed by [facility] | | | [facility]. New reference ranges for | | | Albumin, Beta and Gamma effective 01/27/02. | | + + + + + + + + | Performing | Address | City/State/Zipcode | Phone Number | | Organization | | | | + + + + + | [facility] | [address] | [place] [address] | | | LABORATORY | | | | + + + + + SERUM PROTEIN ELEC (02/10/2002 3:25 PM PDT) + + + + + + | Component | Value | Ref Range | Performed | Pathologist | | | | | At | Signature | + + + + + + | ALBUMIN,SER | 4.0 | 3.4 - 5.2 g/dL | | | | UM - SPEP | | | | | + + + + + + | ALPHA-1, | 0.2 | 0.1 - 0.4 g/dL | | | | SERUM - | | | | | | SPEP | | | | | + + + + + + | ALPHA-2, | 0.7 | 0.5 - 0.9 g/dL | | | | SERUM - | | | | | | SPEP | | | | | + + + + + + | BETA, SERUM | 0.8 | 0.6 - 1.2 g/dL | | | | - SPEP | | | | | + + + + + + | GAMMA, | 1.6 (H) | 0.5 - 1.5 g/dL | | | | SERUM - | | | | | | SPEP | | | | | + + + + + + | SPEP | 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 Th | | | | | | e majority of low level | | | | | | monoclonalspikes are | | | | | | considered "benign" and | | | | | | found as frequently as | | | | | | 5% in thepopulation over | | | | | | 50 years of | | | | | | age. Monoclonal | | | | | | proteins are most likely | | | | | | rosa malignant if IGG, | | | | | | IGA and IGM | | | | | | concentrations are | | | | | | greater than 3.0, 2.7, | | | | | | or 2.3 gms respectively. | | | | | | | | | | + + + + + + | SPE | Ole Lucas.D. | | | | | REVIEWED | | | | | | BY: | | | | | + + + + + + + + | Specimen | + + | | + + + + + | Narrative | Performed At | + + + | Protein Electrophoresis, Serum Test performed by [facility] | | | [facility]. New reference ranges for | | | Albumin, Beta and Gamma effective 01/27/02. | | + + + + + + + + | Performing | Address | City/State/Zipcode | Phone Number | | Organization | | | | + + + + + | [facility] | [address] | [place] [address] | | | LABORATORY | | | | + + + + + SIM-IMMUNOFIXATION, SERUM (02/10/2002 3:25 PM PDT) + + + + + + | Component | Value | Ref Range | Performed | Pathologist | | | | | At | Signature | + + + + + + | IMMUNOFIXAT | IgM kappa monoclonal | | | | | ION, SERUM | protein identified. | | | | + + + + + + + + | Specimen | + + | | + + + + + + + | Performing | Address | City/State/Zipcode | Phone Number | | Organization | | | | + + + + + | [facility] | [address] | [place] [address] | | | LABORATORY | | | | + + + + + documented in this encounter Visit Diagnoses Not on filedocumented in this encounter
--- OUTSIDE RECORDS SUMMARY | ~2018-10-01 | XMS | Encounter Summary ---
Demographics + + + | Address | [address] | | | [place] [address] | + + + | Home Phone [...] + + + | Author | [facility] | + + + | Organization | [facility] | + + + | Address | Unknown | + + + | Phone | Unavailable | + + + Support + + +---------+ + | Name | Relationship | Address | Phone | + + +---------+ + | Nunu Meléndez | ECON | Unknown | | + + +---------+ + Care Team Providers + +------+ + | Care Tractor Crane Operator Name | Role | Phone | [...] as of this encounter Progress Notes Tammy, Tin Dipper In - 01/23/2006 1:08 AM PDTCLINIC DATE: [...] week. Bal Medina M.D. PH / HS [id number] / [id number] / [id number] / [id number] signed by Tammy, Tin Dipper In at 01/23/2006 1:08 AM PDTInt leland, Tin Dipper In - 01/23/2006 1:08 AM PDTINIC DATE: [...] week. Rick Pulliam M.D. CHAITANYA / BERNARD [id number] / [id number] / [id number] / [id number] signed by Interface, Tin Dipper In at 01/23/2006 1:08 AM PDTdoc umented in this encounter Plan of Treatment Not on filedocumented as of this encounter Visit Diagnoses Not on filedocumented in this encounter"
--- OUTSIDE RECORDS SUMMARY | ~2018-10-01 | XMS | Encounter Summary ---
Demographics + + + | Address | [address] | | | [place] [address] | + + + | Home Phone | | + + + | Preferred Language | Unknown | + + + | Marital Status | | + + + | Latter Day Affiliation | 1001 | + + + | Race | Unknown | + + + | Ethnic Group | Unknown | + + + Author + + + | Author | [employer] | + + + | Organization [...] Team Providers + +------+ + | Care Captain Fire Prevention Bureau Name | Role | Phone | + [...] | Radiology | Diagnoses | Edwige, | [facility] [address] | | | | | ILD | MD Scar | [address] | | | | | (interstitia | [address] | | | | | l lung | [address] | [place] | | | | | disease) | [place], | [address] Phone: | | | | | (HCC) | [place] [address] | [phone] | | | | | Procedures | Phone: | | | | | | CT chest | [phone] | | | | | | without | Fax: | | | | | | contrast | [phone] | | +--------+--------+ + + + + Reason for Visit + + + | Reason | Comments | + + + | Follow-up | eosinophilic asthma | + + + Encounter Details +--------+---------+ + + + | Date | Type | Department | Care Team | Description | +--------+---------+ + + + | 09/20/ | Office | [facility] | Scar Gibbons MD | ILD (interstitial | | 2019 | Visit | Pulmonology [address] | [address] | lung disease) ([facility]) | | | | [address] | [place] [address] | (Primary Dx); | | | | [place], [place] | [phone] | Eosinophilic asthma | | | | [address] | | (HCC) | | | | [phone] | | | +--------+---------+ + + + [...] + + + | Blood Pressure | 121/62 | 09/20/2018 10:09 AM PDT | + + + + | Pulse | 69 | 09/20/2018 10:09 AM PDT | + + + + | Temperature | 36.3 C (97.3 F) | 09/20/2018 10:09 AM PDT | + + + + | Respiratory Rate | - | - | + + + + | Oxygen Saturation | 97% | 09/20/2018 10:09 AM PDT | + + + + | Inhaled Oxygen | - | - | | Concentration | | | + + + + | Weight | 89.4 kg (197 lb) | 09/20/2018 10:09 AM PDT | + + + + | Height | 182.9 cm (6') | 09/20/2018 10:09 AM PDT | + + + + | Body Mass Index | 26.72 | 09/20/2018 10:09 AM PDT | + + + + in this encounter Progress Notes Scar Gibbons MD - 09/20/2018 10:20 AM PDTFormatting of this note may be different from tiesha blue. Subjective: Patient ID: Neil Meléndez is a [...] has no major environmental exposures. 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 He is a life time nonsmoker. 07/13/2018 The patient has been compliant with the use of symbicort. He says that he has had only 25% relief. He continues to have significant shortness of breath. INTERIM HISTORY 09/20/2018 The patient says that he did not feel any significant difference with the first two doses o f nucala but with the third he has started to feel better . He still has bouts of coughing b ut not close to he had before . His requirement of the rescue inhaler has gone down . Review of Systems Constitutional: Positive for activity change. HENT: Positive for congestion (Improved but persistent) and sinus pressure (Improved but pe rsistent). Eyes: Negative. Respiratory: Positive for cough, shortness of breath and wheezing. Cardiovascular: Negative. Gastrointestinal: Negative. Endocrine: Negative. Genitourinary: Negative. Musculoskeletal: Negative. Skin: Negative. Allergic/Immunologic: Negative. Neurological: Negative. Hematological: Negative. Psychiatric/Behavioral: Negative. History: Past Medical History Diagnosis Date Asthma Eosinophilic asthma (HCC) 07/13/2018 Low testosterone Malignant neoplasm (HCC) prostate Past [...] MG tablet Take 0.125 mg by mouth. triamcinolone (NASACORT AQ) 55 MCG/ACT nasal inhaler [...] 4 MG dose pack Follow package directions. (Patient not taking: Abhishek morejon on 09/20/2018) 21 tablet 0 methylPREDNISolone 4 MG dose pack Follow package directions. (Patient not taking: Abhishek jean-pierre on 09/20/2018) 21 tablet 0 PROAIR HFA 108 (90 Base) MCG/ACT inhaler inhale 2 puffs by mouth if needed every 6 hour s 0 silver sulfADIAZINE (SSD) 1 % cream apply topically daily as directed No current facility-administered medications on file prior to visit. Objective: Physical Exam Vitals: 09/20/18 1009 BP: 121/62 Pulse: 69 Temp: 97.3 F (36.3 C) SpO2: 97% Vital signs reviewed. GENERAL: pleasant, cooperative, oriented, [...] Assessment and Plan: 1. Eosinophilic asthma (HCC) The patient has historry suggestive of severe persistent asthma. His total eosinophil coun t is significantly elevated. This has been uncontrolled for a very long and he has taken mu ltiple courses steroids over the years. Continue budesonide-formoterol (SYMBICORT) 160-4.5 MCG/ACT inhaler Inhale 2 puffs into the lungs 2 ( two) times daily He will continue getting his Nucala shots. Unfortunately he feels that they are very expen sive for him. He would like to finish the 6 injections and then he may consider going on al ternate day steroids versus methotrexate as a steroid sparing agent. 2. Interstitial lung disease His pulmonary function test is suggestive of moderate obstructive impairment with significa nt bronchodilator response. He does have reduced diffusing capacity and has had exposure to asbestos, mold. Before starting him on methotrexate I would like to get a CT of the chest. Thank you for allowing me to participate in your patient's care. We will review test result s that we have ordered with the patient once they become available. A return visit has been scheduled in 3-month Scar Gibbons MD Pulmonary and Critical Care Medicine [facility] [address], [place] [address] in this encounter Plan of Treatment +--------+ + + + + | Date | Type | Specialty | Care Team | Description | +--------+ + + + + | 10/21/ | Appointment | | Scar Gibbons MD | | | 2019 | | | [address] | | | | | | [place] [address] | | | | | | [phone] | | | | | | | | +--------+ + + + + | 11/18/ | Appointment | | Scar Gibbons MD | | | 2019 | | | [address] | | | | | | [place] [address] | | | | | | [phone] | | | | | | | | +--------+ + + + + | 12/16/ | Appointment | | Scar Gibbons MD | | | 2018 | | | [address] | | | | | | [place] [address] | | | | | | [phone] | | | | | | | | +--------+ + + + + | 01/17/ | Office | Pulmonology | Scar Gibbons MD | | | 2019 | Visit | | [address] | | | | | | [place] [address] | | | | | | [phone] | | | | | | | | +--------+ + + + + as of this encounter Results CT chest without contrast [...] | + + + + + | [facility] | [address] | [place] [address] | | + + + + + in this encounter Visit Diagnoses + + | Diagnosis | + + | ILD (interstitial lung disease) (HCC) - Primary | + + | Postinflammatory pulmonary fibrosis | + + | Eosinophilic asthma (HCC) | + + | Pulmonary eosinophilia | + +"
--- OUTSIDE RECORDS SUMMARY | ~2018-10-01 | XMS | Encounter Summary ---
Demographics + + + | Address | [address] | | | [place] [address] | + + + | Home Phone [...] Team Providers + +------+ + | Care Platen Press Feeder Name | Role | Phone | [...] as of this encounter Progress Notes Interface, Community Relations Director In - 11/30/2004 10:31 PM PDTClinic Date: 07/21/2003 Clinic: Otolaryngology History: Neil returns today for followup of chronic sinusitis. He was started by his can slider on Levaquin because of an acute exacerbation [...] week. Bal Medina M.D. PH / HS [id number] / [id number] / [id number] / Tdocumented in this encounter Plan of Treatment Not on filedocumented as of this encounter Visit Diagnoses Not on filedocumented in this encounter"
--- OUTSIDE RECORDS SUMMARY | ~2018-10-01 | XMS | Encounter Summary ---
Demographics + + + | Address | [address] | | | [place] [address] | + + + | Home Phone | | + + + | Preferred Language | Unknown | + + + | Marital Status | | + + + | Mormonism Affiliation | Unknown | + + + | Race | White | + + + | Ethnic Group | Not or | + + + Author + + + | Author | [facility] | + + + | Organization | [facility] | + + + | Address | Unknown | + + + | Phone | Unavailable | + + + Support + + +---------+ + | Name | Relationship | Address | Phone | + + +---------+ + | Nunu Meléndez | ECON | Unknown | | + + +---------+ + Care Team Providers + +------+ + | Care Stylist Apprentice Name | Role | Phone | + [...] as of this encounter Progress Notes Interface, Metaphysician In - 12/01/2004 11:04 AM PDT [id number] [facility] Date: 09/19/2004 Clinic: Otolaryngology [...] in 6 months. Bal Medina M.D. Director, [facility] Finisher Polisher of Otolaryngology/Head and Neck Surgery PH / HS [id number] / [id number] / [id number] / [id number] Electronically signed by Bal Medina 09-30-2004 03:08:31 PM documented i n this encounter Plan of Treatment Not on filedocumented as of this encounter Visit Diagnoses Not on filedocumented in this encounter"
--- OUTSIDE RECORDS SUMMARY | ~2018-10-01 | XMS | Encounter Summary ---
Demographics + + + | Address | [address] | | | [place] [address] | + + + | Home Phone | | + + + | Preferred Language | Unknown | + + + | Marital Status | | + + + | Taoist Affiliation | 1001 | + + + | Race | Unknown | + + + | Ethnic Group | Unknown | + + + Author + + + | Author | [employer] | + + + | Organization [...] Team Providers + +------+ + | Care Pourer Metal Name | Role | Phone | + +------+ + | Lucien Alonso MD | PCP | | + +------+ + Encounter Details +--------+ + + + + | Date | Type | Department | Care Team | Description | +--------+ + + + + | 07/13/ | Orders Only | [facility] | Rajwinder Patel, | | | 2018 | | Pulmonology [address] | NETWORK SYSTEMS INTEGRATOR | | | | | [address] | | | | | | [place] | | | | | | [address] | | | | | | [phone] | | | +--------+ + + + [...] | | | | | [place] [address] | | | | | | [phone] | | | | | | | | +--------+ + + + + | 11/18/ | Appointment | | Scar Gibbons MD | | | 2018 | | | [address] | | | | | | [place] [address] | | | | | | [phone] | | | | | | | | +--------+ + + + + | 12/16/ | Appointment | | Scar Gibbons MD | | | 2019 | | | [address] | | | | | | [place] [address] | | | | | | [phone] | | | | | | | | +--------+ + + + + | 01/17/ | Office | Pulmonology | Scar Gibbons MD | | | 2019 | Visit | | [address] | | | | | | [place] [address] | | | | | | [phone] | | | | | | | | +--------+ + + + + as of this encounter Visit Diagnoses Not on filein this encounter"
--- OUTSIDE RECORDS SUMMARY | ~2018-10-01 | XMS | Encounter Summary ---
Demographics + + + | Address | [address] | | | [place] [address] | + + + | Home Phone | | + + + | Preferred Language | Unknown | + + + | Marital Status | | + + + | Jain Affiliation | 1001 | + + + | Race | Unknown | + + + | Ethnic Group | Unknown | + + + Author + + + | Author | [facility] [employer] | + + + | Organization [...] Team Providers + +------+ + | Care Gasoline Tester Name | Role | Phone | + [...] [place] | | | | | ([facility]) | [place] | | | | | Procedures | [place] [address] | [place] | | | | | [place] | Phone: | [address] Phone: | | | | | INJECTION, | [phone] | [phone] | | | | | MEPOLIZUMAB, | Fax: | | | | | | 1MG | [phone] | | + +--------+ + + + + Encounter Details +--------+ + + + + | Date | Type | Department | Care Team | Description | +--------+ + + + + | 09/23/ | Hospital | [facility] | Scar Gibbons MD | Eosinophilic asthma | | 2019 | Encounter | [facility] | [address] | ([facility]) | | | | Outpatient | [place] [address] | | | | | Procedures [address] | [phone] | | | | | [address] | | | | | | [place] [address] | | | | | | [phone] | | | +--------+ + + + [...] + + + | Blood Pressure | 154/89 | 09/23/2018 9:44 AM PDT | + + + + | Pulse | 83 | 09/23/2018 9:44 AM PDT | + + + + | Temperature | 37.1 C (98.8 F) | 09/23/2018 9:44 AM PDT | + + + + | Respiratory Rate | 16 | 09/23/2018 9:44 AM PDT | + + + + | Oxygen Saturation | 94% | 09/23/2018 9:44 AM PDT | + + + + [...] 2 puffs by | | 0 | 01/16/20 | | | Base) MCG/ACT | mouth [...] | | | | | | [place] [address] | | | | | | [phone] | | | | | | | | +--------+ + + + + | 11/18/ | Appointment | | Scar Gibbons MD | | | 2019 | | | [address] | | | | | | [place] [address] | | | | | | [phone] | | | | | | | | +--------+ + + + + | 12/16/ | Appointment | | Scar Gibbons MD | | | 2019 | | | [address] | | | | | | [place] [address] | | | | | | [phone] | | | | | | | | +--------+ + + + + | 01/17/ | Office | Pulmonology | Scar Gibbons MD | | | 2019 | Visit | | [address] | | | | | | [place] [address] | | | | | | [phone] | | | | | | | [...] | + + Administered Medications + +--------+ +--------+------+------+ | Medication Order | MAR | Action | Dose | Rate | Site | | | Action | Date | | | | + +--------+ +--------+------+------+ | mepolizumab (NUCALA) injection | Given | | 100 mg | | | | 100 mg 100 mg, Subcutaneous, | | 9 10:25 | | | | | Once, [facility] 09/23/18 at 1000, For 1 | | PDT | | | | | dose | | | | | | + +--------+ +--------+------+------+ +---+---+ | | | +---+---+ in this encounter"
--- OUTSIDE RECORDS SUMMARY | ~2018-10-01 | XMS | Encounter Summary ---
Demographics + + + | Address | [address] | | | [place] [address] | + + + | Home Phone [...] Team Providers + +------+ + | Care Neurology Professor Name | Role | Phone | + [...] | Transcriptions | + + | Interface, Combine Operator In - 01/19/2006 2:25 AM PDT | | [facility] [address] | | [place], [place] [address] | | [facility] CenterOPERATION RECORDMed Rec No.: | | 01-18-14-08 Date: 04/21/2001Name: Neil Meléndez SURGEON: | | Bal Medina M.D.NEUROSCIENTIST(S): Rick Pulliam, | | CeceliaPREOPERATIVE DIAGNOSIS(ES):1. Chronic [...] with cutting instruments. | | Next, using theBuzzMober navigational system, the skull base was identified [...] | Bal Medina M.D.BUFFY/x65D:04/21/2001T:04/21/2001C: | | 05/05/2001 [id number] | |General. | | | |COMPLICATIONS: | [...] | | | |C: 05/05/2001 leb | |[id number] | + + documented in this encounter Visit Diagnoses Not on filedocumented in this encounter"
--- OUTSIDE RECORDS SUMMARY | ~2018-10-01 | XMS | Encounter Summary ---
Demographics + + + | Address | [address] | | | [place] [address] | + + + | Home Phone | | + + + | Preferred Language | Unknown | + + + | Marital Status | | + + + | Hinduism Affiliation | Unknown | + + + [...] Team Providers + +------+ + | Care Welder Experimental Name | Role | Phone | + [...] as of this encounter Progress Notes Interface, Wildlife Conservation Officer In - 02/09/2006 2:25 AM [facility] [place] [address] [place], [place] [address] or Department of Otolaryngology - PV01 January 05, 2001 Mr. Solano [address] [place] [address] RE: RUPERTO SOLANO MR #: [id number] Dear Mr. Solano: Dr. Bal Medina who [...] any concerns. Yours sincerely, Carlos Martinez M.D. [facility] / [id number] / [id number] / [id number] / [id number] cc: Bal Medina M.D. [id number] signed by Interface, Wildlife Conservation Officer In at 02/09/2006 2:25 AM PDTdocume nted in this encounter Plan of Treatment Not on filedocumented as of this encounter Visit Diagnoses Not on filedocumented in this encounter"
--- OUTSIDE RECORDS SUMMARY | ~2018-10-01 | XMS | Encounter Summary ---
Demographics + + + | Address | [address] | | | [place] [address] | + + + | Home Phone | | + + + | Preferred Language | Unknown | + + + | Marital Status | | + + + | Yarsani Affiliation | Unknown | + + + | Race | White | + + + | Ethnic Group | Not or | + + + Author + + + | Author | [facility] | + + + | Organization | [facility] | + + + | Address | Unknown | + + + | Phone | Unavailable | + + + Support + + +---------+ + | Name | Relationship | Address | Phone | + + +---------+ + | Nunu Meléndez | ECON | Unknown | | + + +---------+ + Care Team Providers + +------+ + | Care Coil Shaper Name | Role | Phone | + +------+ + PCP | Unavailable | + +------+ + Encounter Details +--------+ + + + + | Date | Type | Department | Care Team | Description | +--------+ + + + + | 02/10/ | Results | Hematology | [place], | | | 2001 | Only | Oncology [address] | [address] | | | | | [address] | [address] [place], | | | | | Road Mailcode: | [place] [address] | | | | | [address] [facility] | [phone] | | | | | [place], | | | | | | [place] [address] | | | | | | [phone] | | | +--------+ + + + [...] | + +--------+ + + + | UJY-[id number]-[id number],SER | Routin | 02/10/2002 | | Results [...] + + documented in this encounter Results [id number],SERUM (02/10/2002 3:25 PM PDT) + +-------+ + [...] | Protein Electrophoresis, Serum Test performed by [employer] | | | [facility]. New reference ranges for | | | Albumin, Beta and Gamma effective 01/27/02. | | + + + + + + + + | Performing | Address | City/State/Zipcode | Phone Number | | Organization | | | | + + + + + | [facility] | [address] | [place] [address] | | | LABORATORY | | | [...] | Protein Electrophoresis, Serum Test performed by [employer] | | | [facility]. New reference ranges for | | | Albumin, Beta and Gamma effective 01/27/02. | | + + + + + + + + | Performing | Address | City/State/Zipcode | Phone Number | | Organization | | | | + + + + + | [facility] | [address] | [place] [address] | | | LABORATORY | | | [...] | + + + + + | [facility] | [address] | [place] [address] | | | LABORATORY | | | | + + + + + documented in this encounter Visit Diagnoses Not on filedocumented in this encounter
--- OUTSIDE RECORDS SUMMARY | ~2018-10-01 | XMS | Encounter Summary ---
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 He does not smoke. He does not [...] repeat the SPEP today. Dereck Zhong M.D. gis database administrator JOSE E / BERNARD [id number] / [id number] / [id number] / cc: Ralph Baird M.D. [address] [id number] signed by Interface, Child Care Group Leader In at 12/07/2005 1: 12 AM PDTdocumented in this encounter Plan of Treatment Not on filedocumented as of this encounter Visit Diagnoses Not on filedocumented in this encounter"
--- OUTSIDE RECORDS SUMMARY | ~2018-10-01 | XMS | Encounter Summary ---
Demographics + + + | Address | [address] | | | [place] [address] | + + + | Home Phone | | + + + | Preferred Language | Unknown | + + + | Marital Status | | + + + | Judaism Affiliation | 1001 | + + + | Race | Unknown | + + + | Ethnic Group | Unknown | + + + Author + + + | Author | [employer] | + + + | Organization [...] Team Providers + +------+ + | Care Transmitter Chief Name | Role | Phone | + [...] | uncomplicate | [address] | [place], [place] | | | | | d | [address] | [address] | | | | | | [place], | Phone: | | | | | | [place] | [phone] | | | | | | [address] | | | | | | | Phone: | | | | | | | [phone] | | | | | | | Fax: | | | | | | | [phone] | | + +--------+ + + + + Encounter Details +--------+---------+ + + + | Date | Type | Department | Care Team | Description | +--------+---------+ + + + | 07/13/ | Office | [facility] | Scar Gibbons MD | Eosinophilic asthma | | 2019 | Visit | Pulmonology [address] | [address] | ([facility]) | | | | [address] | [place] [address] | | | | | [place], [place] | [phone] | | | | | [address] | | | | | | [phone] | | | +--------+---------+ + + + [...] has no major environmental exposures. 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 He is a [...] has hypersensitivity pneumonitis. I will get a nm gh-resolution CT which unfortunately was not covered by his insurance for unclear reason. Thank you for allowing me to participate in your patient's care. We will review test result s that we have ordered with the patient once they become available. A return visit has been scheduled in 6weeks. Scar Gibbons MD Pulmonary and Critical Care Medicine [address] , [place] [address] in this encounter Plan of Treatment +--------+ + + + + | Date | Type | Specialty | Care Team | Description | +--------+ + + + + | 10/21/ | Appointment | | Scar Gibbons MD | | | 2018 | | | [address] | | | | | | [place] [address] | | | | | | [phone] | | | | | | | | +--------+ + + + + | 11/18/ | Appointment | | Scar Gibbons MD | | | 2018 | | | [address] | | | | | | [place] [address] | | | | | | [phone] | | | | | | | | +--------+ + + + + | 12/16/ | Appointment | | Scar Gibbons MD | | | 2018 | | | [address] | | | | | | [place] [address] | | | | | | [phone] | | | | | | | | +--------+ + + + + | 01/17/ | Office | Pulmonology | Scar Gibbons MD | | | 2019 | Visit | | [address] | | | | | | [facility] [place] [address] | | | | | | [phone] | | | | | | | | +--------+ + + + + as of this encounter Visit Diagnoses + + | Diagnosis | + + | Eosinophilic asthma (HCC) | + + | Pulmonary eosinophilia | + +"
--- OUTSIDE RECORDS SUMMARY | ~2018-10-01 | XMS | Clinical Summary ---
Demographics + + + | Address | [address] | | | [place] [address] | + + + | Home Phone | | + + + | Preferred Language | Unknown | + + + | Marital Status | | + + + | Mandaen Affiliation | 1001 | + + + | Race | Unknown | + + + | Ethnic Group | Unknown | + + + Author + + + | Author | [facility] | + + + | Organization | [facility] | + + + | Address | Unknown | + + + | Phone | Unavailable | + + + Support + + +---------+ + | Name | Relationship | Address | Phone | + + +---------+ + | Sunita Solano | ECON | Unknown | | + + +---------+ + | Iain Solano | ECON | Unknown | | + + +---------+ + Care Team Providers + +------+ + | Care Machine Hostler Name | Role | Phone | + +------+ + | Lucien Alonso MD | PP | | + +------+ + Allergies No Known Allergies Current Medications + + +---------+---------+------+------+-------+ | Prescription | Sig. | Disp. | Refills | Star | End | Statu | | | | | | t | Date | s | | | | | | Date | | | + + +---------+---------+------+------+-------+ | buPROPion | Take 100 mg by | | | 02/0 | | Activ | | (WELLBUTRIN) 100 MG | mouth. | | | 3/20 | | e | | tablet | | | | 17 | | | + + +---------+---------+------+------+-------+ | PARoxetine (PAXIL) | Take 30 mg by mouth. | | | 03/3 | | Activ | | 30 MG tablet | | | | 0/20 | | e | | | | | | 15 | | | + + +---------+---------+------+------+-------+ | pramipexole | Take 0.125 mg by | | | /3 | | Activ | | (MIRAPEX) 0.25 MG | mouth. | | | 0/20 | | e | | tablet | | | | 15 | | | + + +---------+---------+------+------+-------+ | silver | apply topically | | | 01/1 | | Activ | | sulfADIAZINE (SSD) 1 | daily as directed | | | 2/20 | | e | | % cream | | | | 17 | | | + + +---------+---------+------+------+-------+ | triamcinolone | 1 spray by Nasal | | | | | Activ | | (NASACORT AQ) 55 | route. | | | | | e | | MCG/ACT nasal | | | | | | | | inhaler | | | | | | | + + +---------+---------+------+------+-------+ | zolpidem (AMBIEN) | Take 10 mg by mouth. | | | 04/0 | | Activ | | 10 MG tablet | | | | 3/20 | | e | | | | | | 15 | | | + + +---------+---------+------+------+-------+ | PROAIR HFA 108 (90 | inhale 2 puffs by | | 0 | 01/1 | | Activ | | Base) MCG/ACT | mouth if needed | | | 6/20 | | e | | inhaler | every 6 hours | | | 19 | | | + + +---------+---------+------+------+-------+ | doxycycline | take 1 capsule by | | 0 | 01/2 | | Activ | | (VIBRAMYCIN) 100 MG | mouth twice a day | | | 3/20 | | e | | capsule | for 10 days | | | 19 | | | + + +---------+---------+------+------+-------+ | GUAIATUSSIN AC | take 5 to 10 | | 0 | 01/2 | | Activ | | 100-10 MG/5ML syrup | milliliters by mouth | | | 3/20 | | e | | | four times a day if | | | 19 | | | | | needed for cough | | | | | | + + +---------+---------+------+------+-------+ | | Inhale 2 puffs into | 1 | 12 | 01/2 | 01/2 | Activ | | budesonide-formotero | the lungs 2 (two) | Inhaler | | 4/20 | 4/20 | e | | l (SYMBICORT) | times daily. | | | 19 | 20 | | | 160-4.5 MCG/ACT | | | | | | | | inhaler | | | | | | | + + +---------+---------+------+------+-------+ | methylPREDNISolone | Follow package | 21 | 0 | 01/2 | | Activ | | 4 MG dose pack | directions. | tablet | | 4/20 | | e | | | | | | 19 | | | + + +---------+---------+------+------+-------+ | methylPREDNISolone | Follow package | 21 | 0 | 07/02 | | Activ | | 4 MG dose pack | directions. | tablet | | 06/23 | | e | | | | | | 19 | | | + + +---------+---------+------+------+-------+ | fexofenadine | Take 60 mg by mouth | | | | | Activ | | (GWEN) 60 MG | daily. | | | | | e | | tablet | | | | | | | + + +---------+---------+------+------+-------+ Active Problems + + + | Problem | Noted Date | + + + | Eosinophilic asthma (HCC) | 07/13/2018 | + + + Encounters +--------+ + + + + | Date | Type | Specialty | Care Team | Description | +--------+ + + + + | 09/24/ | Telephone | | Sue Burris RN | | | 2019 | | | | | +--------+ + + + + | 09/23/ | Hospital | | Scar Gibbons MD | ILD (interstitial | | 2018 | Encounter | | | lung disease) ([facility]) | +--------+ + + + + | 09/23/ | Hospital | | Scar Gibbons MD | Eosinophilic asthma | | 2019 | Encounter | | | ([facility]) | +--------+ + + + + | 09/20/ | Office | | Scar Gibbons MD | ILD (interstitial | | 2019 | Visit | | | lung disease) (HCC) | | | | | | (Primary Dx); | | | | | | Eosinophilic asthma | | | | | | ([facility]) | +--------+ + + + + | 09/20/ | Orders Only | | Sue Burris RN | | | 2018 | | | | | +--------+ + + + + | 08/26/ | Hospital | | Scar Gibbons MD | Eosinophilic asthma | | 2019 | Encounter | | | ([facility]) | +--------+ + + + + | 07/29/ | Hospital | | Scar Gibbons MD | Eosinophilic asthma | | 2018 | Encounter | | | ([facility]) | +--------+ + + + + | 07/13/ | Office | | Scar Gibbons MD | Eosinophilic asthma | | 2019 | Visit | | | ([facility]) | +--------+ + + + + | 07/13/ | Orders Only | | Rajwinder Patel, | | | 2018 | | | [employer] | | +--------+ + + + + from Last 3 Months Immunizations +------+ + + | Name | Dates Previously Given | Next Due | +------+ + + | Tdap | 07/07/2017 | | +------+ + + Family History + + +------+ + | Medical History | Relation | Name | Comments | + + +------+ + | Alzheimer's disease | Father | | | + + +------+ + | Cancer | Father | | prostate | + + +------+ + | Diabetes type II | Father | | | + + +------+ + | Diabetes type II | Mother | | | + + +------+ + | Heart failure | Mother | | | + + [...] AM PDT | + + + + Plan of Treatment +--------+ + + + + | Date | Type | Specialty | Care Team | Description | +--------+ + + + + | 10/21/ | Appointment | | Scar Gibbons MD | | | 2018 | | | [address] | | | | | | [place] [address] | | | | | | [phone] | | | | | | | | +--------+ + + + + | 11/18/ | Appointment | | Scar Gibbons MD | | | 2018 | | | [address] | | | | | | [place] [address] | | | | | | [phone] | | | | | | | | +--------+ + + + + | 12/16/ | Appointment | | Scar Gibbons MD | | | 2018 | | | [address] | | | | | | [place] [address] | | | | | | [phone] | | | | | | | | +--------+ + + + + | 01/17/ | Office | | Scar Gibbons MD | | | 2019 | Visit | | [address] | | | | | | [place] [address] | | | | | | [phone] | | | | | | | | +--------+ + + + + Procedures + +--------+ + + + | [...] + + from Last [address] chest without contrast (09/23/2018 11:12 [...] | + + + + + | [facility] | [address] | [place] [address] | | + + + + + from Last 3 Months Insurance + +--------+ +--------+ + + | Payer | Benefi | Subscriber | Type | Phone | Address | | | t Plan | ID | | | | | | / | | | | | | | Group | | | | | + +--------+ +--------+ + + | [place] - [place] | [place] - | [id number] | [employer] | [phone] [address] [address] [place] | | HEALTHCARE | UNITED | | re | [phone] | [place] [address] | | | | | | | | | | HEALTH | | | | | | | CARE | | | | | + +--------+ +--------+ + + + +--------+ +--------+ + + | Guarantor Name | Accoun | Relation to | Date | Phone | Billing Address | | | t Type | Patient | of | | | | | | | | | | + +--------+ +--------+ + + | NEIL SOLANO | Person | Self | [birth year] | Home: | [address] | | [place] | al/Arley | | 1941 | [phone] [place] | | | lu | | [phone] | + +--------+ +--------+ + +"
--- OUTSIDE RECORDS SUMMARY | ~2018-10-01 | XMS | Encounter Summary ---
Demographics + + + | Address | [address] | | | [place] [address] | + + + | Home Phone | | + + + | Preferred Language | Unknown | + + + | Marital Status | | + + + | Sikhism Affiliation | Unknown | + + + | Race | White | + + + | Ethnic Group | Not or | + + + Author + + + | Author | [facility] | + + + | Organization | [facility] | + + + | Address | Unknown | + + + | Phone | Unavailable | + + + Support + + +---------+ + | Name | Relationship | Address | Phone | + + +---------+ + | Nunu Meléndez | ECON | Unknown | | + + +---------+ + Care Team Providers + +------+ + | Care Home Health Travel Ot Name | Role | Phone | + [...] [address] | [facility] [facility] | | | | | [place] | [place] [address] | | | | | Road Mailcode: [address] | | | | | | Physician's | | | | | | [place] | | | | | | [place] [address] | | | | | | [phone] | | | +--------+ + + + [...] | | + +---------+ + + | [facility] DEPARTMENT OF | | | | | RADIOLOGY | | | | + +---------+ + + documented in this encounter Visit Diagnoses Not on filedocumented in this encounter"
--- OUTSIDE RECORDS SUMMARY | ~2018-10-01 | XMS | Encounter Summary ---
Demographics + + + | Address | [address] | | | [place] [address] | + + + | Home Phone | | + + + | Preferred Language | Unknown | + + + | Marital Status | | + + + | Bahai Affiliation | Unknown | + + + | Race | White | + + + | Ethnic Group | Not or | + + + Author + + + | Author | [facility] | + + + | Organization | [facility] | + + + | Address | Unknown | + + + | Phone | Unavailable | + + + Support + + +---------+ + | Name | Relationship | Address | Phone | + + +---------+ + | Nunu Meléndez | ECON | Unknown | | + + +---------+ + Care Team Providers + +------+ + | Care Pull Over Name | Role | Phone | + [...] as of this encounter Progress Notes Interface, Silica Filter Operator In - 12/26/2005 1:05 AM PDTCLINIC DATE: [...] surgery. Bal Medina M.D. PH / HS [id number] / [id number] / [id number] / Tdocumented in this encounter Plan of Treatment Not on filedocumented as of this encounter Visit Diagnoses Not on filedocumented in this encounter"
--- OUTSIDE RECORDS SUMMARY | ~2018-10-01 | XMS | Encounter Summary ---
Demographics + + + | Address | [address] | | | [place] [address] | + + + | Home Phone | | + + + | Preferred Language | Unknown | + + + | Marital Status | | + + + | Moravian Affiliation | Unknown | + + + | Race | White | + + + | Ethnic Group | Not or | + + + Author + + + | Author | [facility] | + + + | Organization | [facility] | + + + | Address | Unknown | + + + | Phone | Unavailable | + + + Support + + +---------+ + | Name | Relationship | Address | Phone | + + +---------+ + | Nunu Meléndez | ECON | Unknown | | + + +---------+ + Care Team Providers + +------+ + | Care Personnel Manager Name | Role | Phone | + +------+ + PCP | Unavailable | + +------+ + Encounter Details +--------+ + + + + | Date | Type | Department | Care Team | Description | +--------+ + + + + | 04/20/ | Results | Otolaryngology | Carlos Martinez MD | | | 2000 | Only | Head and Neck | [facility] | | | | | Surgery Services at | CENTER [address] [facility] | | | | | [address] | [facility] [address] | | | | | [facility] | [address] [place], | | | | | Mailcode: [address] | [place] [address] | | | | | [facility] | [phone] | | | | | [place], [place] | | | | | | [address] | | | | | | [phone] | | | +--------+ + + + [...] | + +--------+ + + + | TYPE AND SCREEN | Routin | 04/20/2001 | | Results for this | | | e | 4:55 PM | | procedure are in the | | | | PST | | results section. | + +--------+ + + + documented in this encounter Results TYPE AND SCREEN (04/20/2001 4:55 PM PST) + +-------+ + + + | Component | Value | Ref Range | Performed | Pathologist | | | | | At | Signature | + +-------+ + + + | ABO GROUP | B | | [facility] | | | | | | DEPARTMENT | | | | | | OF | | | | | | PATHOLOGY | | + +-------+ + + + | RH TYPE | POS | | [facility] | | | | | | DEPARTMENT | | | | | | OF | | | | | | PATHOLOGY | | + +-------+ + + + | ANTIBODY | NEG | | [facility] | | | SCREEN | | | DEPARTMENT | | | | | | OF | | | | | | PATHOLOGY | | + +-------+ + + + + + | Specimen | + + | | + + + + + | Narrative | Performed At | + + + | SPEC EXPIRES 04/24/01@0700 | [facility] | | | DEPARTMENT OF | | | PATHOLOGY | + + + + + + + + | Performing | Address | City/State/Zipcode | Phone Number | | Organization | | | | + + + + + | [facility] DEPARTMENT OF | [address] | [place] [address] | | | PATHOLOGY | [address] | | | + + + + + | [facility] | [address] | [place] [address] | | | PATHOLOGY | [address] | | | + + + + + documented in this encounter Visit Diagnoses Not on filedocumented in this encounter"
--- OUTSIDE RECORDS SUMMARY | ~2018-10-01 | XMS | Encounter Summary ---
Demographics + + + | Address | [address] | | | [place] [address] | + + + | Home Phone | | + + + | Preferred Language | Unknown | + + + | Marital Status | | + + + | Gnosticism Affiliation | Unknown | + + + | Race | White | + + + | Ethnic Group | Not or | + + + Author + + + | Author | [facility] | + + + | Organization | [facility] | + + + | Address | Unknown | + + + | Phone | Unavailable | + + + Support + + +---------+ + | Name | Relationship | Address | Phone | + + +---------+ + | Nunu Meléndez | ECON | Unknown | | + + +---------+ + Care Team Providers + +------+ + | Care Feeder Switchboard Operator Name | Role | Phone | [...] as of this encounter Progress Notes Interface, Behavioral Sciences Instructor In - 12/01/2004 8:43 AM PDT [id number] [facility] Date: 04/19/2004 Clinic: Otolaryngology Subjective: Mr. Meléndez comes in today for a followup of chronic sinusitis. He reports he has had one episode of infection since his last appointment 6 months ago which was treated with 6 weeks of Cipro. Today, he is feeling well and is only reporting his baseline, occasional, dry crusted discharge when he performs his irrigations. Procedure: Diagnostic nasal endoscopy. Anesthesia: Topical lidocaine 4%. Description of Procedure: A 4-mm 30-degree endoscope is used for nasal endoscopy. Examination on the left side shows a patent ethmoid cavity with a partially resected middle turbinate. The sphenoid sinus is open as well as a partially contracted maxillary sinus. No secretions are noted. Examination of the right nasal cavity shows a contracted maxillary sinus with very minimal dry secretions which are easily suctioned. The ethmoid and sphenoid sinuses remain patent. The scope is then removed. The patient tolerated the procedure well. Assessment and Plan: The patient has been very stable with regard to his sinuses, and the exam today even looks slightly better than his last appointment. I feel we can try decreasing his prednisone dose. He is currently on 5 mg every other day, and we will try to decrease this by 1 mg every month and titrate this according to the patient's response. He will remain on his Pred Forte and Flonase sprays twice a day. He is using irrigations frequently, namely 3 to 4 times a day with an unspecified antibiotic which he thinks is tobramycin. We have also given him a bottle of xylitol as he has tried this in the past and wanted to use it again. We will see him again in 6 months. The patient was seen with Dr. Bal Medina. Von Montes M.D. Bal Medina M.D. Director, [facility] Supervisor Of Way of Otolaryngology/Head and Neck Surgery SONDRA / HS [id number] / [id number] / [id number] / [id number] cc: Gianni Muniz M.D. [address] [facility] [place] [address] documented i n this encounter Plan of Treatment Not on filedocumented as of this encounter Visit Diagnoses Not on filedocumented in this encounter"
--- OUTSIDE RECORDS SUMMARY | ~2018-10-01 | XMS | Encounter Summary ---
Demographics + + + | Address | [address] | | | [place] [address] | + + + | Home Phone [...] Team Providers + +------+ + | Care Roof Fixer Name | Role | Phone | + +------+ + PCP | Unavailable | + +------+ + Encounter Details +--------+ + + + + | Date | Type | Department | Care Team | Description | +--------+ + + + + | 04/20/ | Results | Otolaryngology | Carlos Martinez MD | | | 2000 | Only | Head and Neck | [facility] | | | | | Surgery Services at | CENTER [address] [facility] | | | | | [address] | [facility] [address] | | | | | [facility] | [address] [place], | | | | | Mailcode: [address] | [place] [address] | | | | | Phys[facility] | [phone] | | | | | [place], [place] | | | | | | [address] | | | | | | [phone] | | | +--------+ + + + [...] DEPARTMENT OF | [address] | [place] [address] | | | PATHOLOGY | [address] | | | + + + + + | [facility] | [address] | [place] [address] | | | PATHOLOGY | [address] | | | + + + + + documented in this encounter Visit Diagnoses Not on filedocumented in this encounter"
--- OUTSIDE RECORDS SUMMARY | ~2018-10-01 | XMS | Encounter Summary ---
Demographics + + + | Address | [address] | | | [place] [address] | + + + | Home Phone | | + + + | Preferred Language | Unknown | + + + | Marital Status | | + + + | Sikh Affiliation | Unknown | + + + | Race | White | + + + | Ethnic Group | Not or | + + + Author + + + | Author | [facility] | + + + | Organization | [facility] | + + + | Address | Unknown | + + + | Phone | Unavailable | + + + Support + + +---------+ + | Name | Relationship | Address | Phone | + + +---------+ + | Nunu Meléndez | ECON | Unknown | | + + +---------+ + Care Team Providers + +------+ + | Care Motorcycle Deliverer Name | Role | Phone | + [...] as of this encounter Progress Notes Tammy, Small Parts Shaper Operator In - 01/19/2006 2:25 AM PDTCLINIC DATE: [...] weeks. Bal Medina M.D. PH / HS [id number] / [id number] / [id number] / [id number] signed by Tammy, Small Parts Shaper Operator In at 01/19/2006 2:25 AM PDTInt leland, Small Parts Shaper Operator In - 01/19/2006 2:25 AM PDTCLINIC DATE: [...] Head and Neck Surgery SSD / HS [id number] / [id number] / [id number] / [id number] signed by Interface, Small Parts Shaper Operator In at 01/19/2006 2:25 AM PDTdoc umented in this encounter Plan of Treatment Not on filedocumented as of this encounter Visit Diagnoses Not on filedocumented in this encounter"
--- OUTSIDE RECORDS SUMMARY | ~2018-10-01 | XMS | Encounter Summary ---
Demographics + + + | Address | [address] | | | [place] [address] | + + + | Home Phone | | + + + | Preferred Language | Unknown | + + + | Marital Status | | + + + | Islam Affiliation | Unknown | + + + [...] Team Providers + +------+ + | Care Slps Name | Role | Phone | + [...] as of this encounter Progress Notes Interface, Sfdc Developer In - 10/24/2005 3:03 AM PDTCLINIC DATE: [...] surgery. Bal Medina M.D. PH / HS [id number] / [id number] / [id number] / [id number] Ortiz, Sfdc Developer In - 10/24/2005 3:03 AM PDTCLINIC DATE: [...] M.D. Bal Medina M.D. MZ / BERNARD [id number] / [id number] / [id number] / [id number] Tdocumented in this encounter Plan of Treatment Not on filedocumented as of this encounter Visit Diagnoses Not on filedocumented in this encounter"
--- OUTSIDE RECORDS SUMMARY | ~2018-10-01 | XMS | Encounter Summary ---
Demographics + + + | Address | [address] | | | [place] [address] | + + + | Home Phone | | + + + | Preferred Language | Unknown | + + + | Marital Status | | + + + | Bahai Affiliation | 1001 | + + + | Race | Unknown | + + + | Ethnic Group | Unknown | + + + Author + + + | Author | [facility] | + + + | Organization [...] Team Providers + +------+ + | Care Funeral Professional Name | Role | Phone | + [...] | Radiology | Diagnoses | Edwige, | [facility] | | | | | ILD | MD Scar | [address] | | | | | (interstitia | [address] | | | | | l lung | [address] | [place] | | | | | disease) | [place], | [address] Phone: | | | | | (HCC) | [place] [address] | [phone] | | | | | Procedures | Phone: | | | | | | CT chest | [phone] | | | | | | without | Fax: | | | | | | contrast | [phone] | | +--------+--------+ + + + + Reason for Visit + + + | Reason | Comments | + + + | Follow-up | eosinophilic asthma | + + + Encounter Details +--------+---------+ + + + | Date | Type | Department | Care Team | Description | +--------+---------+ + + + | 09/20/ | Office | [facility] | Scar Gibbons MD | ILD (interstitial | | 2019 | Visit | Pulmonology [address] | lung disease) ([facility]) | | | | [address] | [place] [address] | (Primary Dx); | | | | [place], [place] | [phone] | Eosinophilic asthma | | | | [address] | | (HCC) | | | | [phone] | | | +--------+---------+ + + + [...] has no major environmental exposures. 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 He is a [...] Gibbons MD Pulmonary and Critical Care Medicine [facility] [address], [place] [address] in this encounter Plan of Treatment +--------+ + + + + | Date | Type | Specialty | Care Team | Description | +--------+ + + + + | 10/21/ | Appointment | | Scar Gibbons MD | | | 2019 | | | [address] | | | | | | [place] [address] | | | | | | [phone] | | | | | | | | +--------+ + + + + | 11/18/ | Appointment | | Scar Gibbons MD | | | 2019 | | | [address] | | | | | | [place] [address] | | | | | | [phone] | | | | | | | | +--------+ + + + + | 12/16/ | Appointment | | Scar Gibbons MD | | | 2018 | | | [address] | | | | | | [place] [address] | | | | | | [phone] | | | | | | | | +--------+ + + + + | 01/17/ | Office | Pulmonology | Scar Gibbons MD | | | 2019 | Visit | | [address] | | | | | | [place] [address] | | | | | | [phone] | | | | | | | [...] [facility] | [address] | [place] [address] | | + + + + + in this encounter Visit Diagnoses + + | Diagnosis | + + | ILD (interstitial lung disease) (HCC) - Primary | + + | Postinflammatory pulmonary fibrosis | + + | Eosinophilic asthma (HCC) | + + | Pulmonary eosinophilia | + +"
--- OUTSIDE RECORDS SUMMARY | ~2018-10-01 | XMS | Encounter Summary ---
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 He did have a pseudomonal flareup, which led to a pulmonary exacerbation that did require 28 days of Levaquin. Still, the use of the supplemental Pred Forte [place] has been beneficial to the patient. He [...] other day and topical Pred Forte Nasal [place]. He will follow up in 6 months. Bal Medina M.D. Director, [facility] Handler of Otolaryngology/Head and Neck Surgery PH / HS [id number] / [id number] / [id number] / cc: Lucien Alonso M.D. [address] [place] [email or web address] signed by Interface, Digital Court Reporter In at 12/01/2004 6:0 9 AM PDTdocumented in this encounter Plan of Treatment Not on filedocumented as of this encounter Visit Diagnoses Not on filedocumented in this encounter"
--- OUTSIDE RECORDS SUMMARY | ~2018-10-01 | XMS | Encounter Summary ---
Demographics + + + | Address | [address] | | | [place] [address] | + + + | Home Phone | | + + + | Preferred Language | Unknown | + + + | Marital Status | | + + + | Episcopalian Affiliation | 1001 | + + + | Race | Unknown | + + + | Ethnic Group | Unknown | + + + Author + + + | Author | [email or web address] [facility] | + + + | Organization [...] Team Providers + +------+ + | Care Computer Processing Scheduler Name | Role | Phone | + [...] [address] | | | | | ([facility]) | [place] | | | | | Procedures | [place] [address] | [place] | | | | | [place] | Phone: | [address] Phone: | | | | | INJECTION, | [phone] | [phone] | | | | | ME[place]IZ[place], | Fax: | | | | | | 1MG | [phone] | | + +--------+ + + + + Encounter Details +--------+ + + + + | Date | Type | Department | Care Team | Description | +--------+ + + + + | 09/23/ | Hospital | [facility] | Scar Gibbons MD | Eosinophilic asthma | | 2019 | Encounter | [facility] | [address] | ([facility]) | | | | Outpatient | [place] [address] | | | | | Procedures [address] | [phone] | | | | | [address] | | | | | | [place] [address] | | | | | | [phone] | | | +--------+ + + + [...] | | | | | | [place] [address] | | | | | | [phone] | | | | | | | | +--------+ + + + + | 11/18/ | Appointment | | Scar Gibbons MD | | | 2019 | | | [address] | | | | | | [place] [address] | | | | | | [phone] | | | | | | | | +--------+ + + + + | 12/16/ | Appointment | | Scar Gibbons MD | | | 2019 | | | [address] | | | | | | [place] [address] | | | | | | [phone] | | | | | | | | +--------+ + + + + | 01/17/ | Office | Pulmonology | Scar Gibbons MD | | | 2019 | Visit | | [address] | | | | | | [place] [address] | | | | | | [phone] | | | | | | | [...] 10:25 | | | | | Once, [facility] 09/23/18 at 1000, For 1 | | PDT | | | | | dose | | | | | | + +--------+ +--------+------+------+ +---+---+ | | | +---+---+ in this encounter"
--- OUTSIDE RECORDS SUMMARY | ~2018-10-01 | XMS | Encounter Summary ---
Demographics + + + | Address | [address] | | | [place] [address] | + + + | Home Phone | | + + + | Preferred Language | Unknown | + + + | Marital Status | | + + + | Yazidism Affiliation | Unknown | + + + [...] Team Providers + +------+ + | Care Medical Sales Consultant Name | Role | Phone | + +------+ + PCP | Unavailable | + +------+ + Encounter Details +--------+ + + + + | Date | Type | Department | Care Team | Description | +--------+ + + + + | 04/21/ | Results | Otolaryngology | Bal Medina [address] | | | 2002 | Only | Laryngology Services | [address] | | | | | at [facility] [address] | [facility] | | | | | [place] | [place] [address] | | | | | Road Mailcode: PV01 | | | | | | Physician's | | | | | | [place] | | | | | | [place] [address] | | | | | | [phone] | | | +--------+ + + + [...] | FUNGUS PRELIMINARY 1 | Routin | 04/21/2003 | | Results for this | | | e | 9:15 AM | | procedure are in the | | | | PST | | results section. | + +--------+ + + + | FUNGAL SMEAR ONLY | Routin | 04/21/2003 | | Results for this | | | e | 9:15 AM | | procedure are in the | | | | PST | | results section. | + +--------+ + + + | CULTURE, FUNGAL & | Routin | 04/21/2003 | | Results for this | | SMEAR | e | 9:15 AM | | procedure are in the | | | | PST | | results section. | + +--------+ + + + | CULTURE, SINUS BACTI | Routin | 04/21/2003 | | Results for this | | & GS | e | 9:15 AM | | procedure are in the | | | | PST | | results section. | + +--------+ + + + documented in this encounter Results CULTURE, SINUS BACTI & GS (04/21/2003 9:15 AM PST) + + + + + + [...] Stain...........: | | | | | | No | | | | | | PMN's | | | | | | | | | | | | No | | | | | | Epithelial | | | | | | cells | | | | | | | | | | | | No | | | | | | organisms seen. | | | | | | Culture: Gram | | | | | | positive | | | | | | growth | | | | | | | | | | | | | | | | | | Final | | | | | | ID Not Staph | | | | | | aureus or Beta | | | | | | strep Gram | | | | | | positive | | | | | | growth | | | | | | | | | | | | | | | | | | Prelim | | | | | | ID Org(s) | | | | | | isolated from broth | | | | | | media only: | | | | | | Preliminary | | | | | | Report: Culture | | | | | | Received, No growth | | | | | | to date. | | | | | | Final Report | | | | + + + + + + + + | Specimen | + + | | + + + + + + + | Performing | Address | City/State/Zipcode | Phone Number | | Organization | | | | + + + + + | [facility] | [address] | [place] [address] | | | LAB-MICRO | | | | + + + + + CULT, FUNGAL (& SMEAR) (04/21/2003 9:15 AM PST) + + + + + + [...] + + + | [facility] | [address] | [place] [address] | | | LAB-MICRO | | | | + + + + + FUNGUS PRELIMINARY 1 (04/21/2003 9:15 AM PST) + + + + + + [...] + + + | [facility] | [address] | [place] [address] | | | LAB-MICRO | | | | + + + + + FUNGAL SMEAR ONLY (04/21/2003 9:15 AM PST) + + + + + + [...] | + + + + + | [facility] | [address] | [place] [address] | | | LAB-MICRO | | | | + + + + + documented in this encounter Visit Diagnoses Not on filedocumented in this encounter"
--- OUTSIDE RECORDS SUMMARY | ~2018-10-01 | XMS | Encounter Summary ---
Demographics + + + | Address | [address] | | | [place] [address] | + + + | Home Phone | | + + + | Preferred Language | Unknown | + + + | Marital Status | | + + + | Worship Affiliation | Unknown | + + + [...] Team Providers + +------+ + | Care Caramel Candy Maker Name | Role | Phone | + [...] as of this encounter Progress Notes Interface, Veneer Splicer In - 12/03/2005 1:04 AM PDTCLINIC DATE: [...] of Otolaryngology/Head and Neck Surgery / HS [id number] / [id number] / [id number] / Ortiz, Veneer Splicer In - 12/03/2005 1:04 AM PDTCLINIC DATE: [...] 6 months. Bal Medina M.D. / HS [id number] / [id number] / [id number] / Tdocumented in this encounter Plan of Treatment Not on filedocumented as of this encounter Visit Diagnoses Not on filedocumented in this encounter"
--- OUTSIDE RECORDS SUMMARY | ~2018-10-01 | XMS | Encounter Summary ---
Demographics + + + | Address | [address] | | | [place] [address] | + + + | Home Phone | | + + + | Preferred Language | Unknown | + + + | Marital Status | | + + + | Islam Affiliation | Unknown | + + + | Race | White | + + + | Ethnic Group | Not or | + + + Author + + + | Author | [facility] | + + + | Organization | [facility] | + + + | Address | Unknown | + + + | Phone | Unavailable | + + + Support + + +---------+ + | Name | Relationship | Address | Phone | + + +---------+ + | Nunu Meléndez | ECON | Unknown | | + + +---------+ + Care Team Providers + +------+ + | Care Matrix Bath Operator Name | Role | Phone | [...] [facility] [address] | [facility] | | | | | [place] | [place] [address] | | | | | Road Mailcode: PV01 | | | | | | Physician's | | | | | | [place] | | | | | | [place] [address] | | | | | | [phone] | | | +--------+ + + + [...] | + + + + + | [facility] | [address] [facility] | [place] [address] | | | PATHOLOGY | [address] | | | + + + + + | [facility] | [address] [facility] | [place] [address] | | | PATHOLOGY | [address] [...] | | + +---------+ + + | [facility] DEPARTMENT OF | | | | | RADIOLOGY | | | | + +---------+ + + documented in this encounter Visit Diagnoses Not on filedocumented in this encounter"
--- OUTSIDE RECORDS SUMMARY | ~2018-10-01 | XMS | Encounter Summary ---
Demographics + + + | Address | [address] | | | [place] [address] | + + + | Home Phone [...] + + + | Author | [facility] | + + + | Organization | [facility] | + + + | Address | Unknown | + + + | Phone | Unavailable | + + + Support + + +---------+ + | Name | Relationship | Address | Phone | + + +---------+ + | Nunu Meléndez | ECON | Unknown | | + + +---------+ + Care Team Providers + +------+ + | Care Electric Plater Name | Role | Phone | + [...] [facility] [address] | [facility] | | | | | [place] | [place] [address] | | | | | Road Mailcode: PV01 | | | | | | Physician's | | | | | | [place] | | | | | | [place] [address] | | | | | | [phone] | | | +--------+ + + + [...] + + + | [facility] | [address] | [place] [address] | | | LAB-MICRO | | | [...] + + + | [facility] | [address] | [place] [address] | | | LAB-MICRO | | | [...] + + + | [facility] | [address] | [place] [address] | | | LAB-MICRO | | | [...] | + + + + + | [facility] | [address] | [place] [address] | | | LAB-MICRO | | | | + + + + + documented in this encounter Visit Diagnoses Not on filedocumented in this encounter"
--- OUTSIDE RECORDS SUMMARY | ~2018-10-01 | XMS | Encounter Summary ---
Demographics + + + | Address | [address] | | | [place] [address] | + + + | Home Phone [...] Team Providers + +------+ + | Care Building Services Supervisor Name | Role | Phone [...] as of this encounter Progress Notes Tammy, Paper Colorer In - 01/07/2006 4:38 AM PDTCLINIC DATE: 08/13/2001 OTOLARYNGOLOGY CLINIC HISTORY: Neil returns today for followup of sinusitis. He [...] months. Bal Medina M.D. PH / HS [id number] / [id number] / [id number] / [id number] signed by Tammy, Paper Colorer In at 01/07/2006 4:38 AM PDTdoc umented in this encounter Plan of Treatment Not on filedocumented as of this encounter Visit Diagnoses Not on filedocumented in this encounter"
--- OUTSIDE RECORDS SUMMARY | ~2018-10-01 | XMS | Encounter Summary ---
Demographics + + + | Address | [address] | | | [place] [address] | + + + | Home Phone | | + + + | Preferred Language | Unknown | + + + | Marital Status | | + + + | Roman Catholic Affiliation | Unknown | + + + | Race | White | + + + | Ethnic Group | Not or | + + + Author + + + | Author | [facility] | + + + | Organization | [facility] | + + + | Address | Unknown | + + + | Phone | Unavailable | + + + Support + + +---------+ + | Name | Relationship | Address | Phone | + + +---------+ + | Nunu Meléndez | ECON | Unknown | | + + +---------+ + Care Team Providers + +------+ + | Care Community Service Patrol Officer Name | Role | Phone | [...] as of this encounter Progress Notes Interface, Restaurant Attendant In - 01/23/2006 1:08 AM PDTCLINIC DATE: 04/20/2001 OTOLARYNGOLOGY -HEAD AND NECK SURGERY Mr. Meléndez was seen back for preoperative discussion regarding the possibility of a Windsor flap for his right frontal sinus. He [...] was signed. Carlos Martinez M.D. KAYLYN / [id number] / [id number] / [id number] / [id number] signed by Interface, Restaurant Attendant In at 01/23/2006 1:08 AM PDTdoc umented in this encounter Plan of Treatment Not on filedocumented as of this encounter Visit Diagnoses Not on filedocumented in this encounter"
--- OUTSIDE RECORDS SUMMARY | ~2018-10-01 | XMS | Encounter Summary ---
Demographics + + + | Address | [address] | | | [place] [address] | + + + | Home Phone [...] Team Providers + +------+ + | Care Prefabricator Name | Role | Phone | + [...] as of this encounter Progress Notes Interface, Director Human Services In - 01/15/2006 3:11 AM PDTCLINIC DATE: [...] weeks. Bal Medina M.D. PH / HS [id number] / [id number] / [id number] / cc: Lucien Alonso M.D. [address] [place] [address] Gianni Muniz M.D. [address] [facility]. [place], [place] [address] [id number] signed by Interface, Director Human Services In at 01/15/2006 3:11 AM PDTdoc umented in this encounter Plan of Treatment Not on filedocumented as of this encounter Visit Diagnoses Not on filedocumented in this encounter"
--- OUTSIDE RECORDS SUMMARY | ~2018-10-01 | XMS | Encounter Summary ---
Demographics + + + | Address | [address] | | | [place] [address] | + + + | Home Phone | | + + + | Preferred Language | Unknown | + + + | Marital Status | | + + + | Caodaism Affiliation | 1001 | + + + | Race | Unknown | + + + | Ethnic Group | Unknown | + + + Author + + + | Author | [facility] [employer] [facility] | + + + | Organization [...] Team Providers + +------+ + | Care Production Supply Equipment Tender Name | Role | Phone | [...] [address] | | | | | ([facility]) | [place] | | | | | Procedures | [place] [address] | [place] Perez | | | | | [place] | Phone: | [address] Phone: | | | | | INJECTION, | [phone] | [phone] | | | | | [place], | Fax: | | | | | | 1MG | [phone] | | + +--------+ + + + + Encounter Details +--------+ + + + + | Date | Type | Department | Care Team | Description | +--------+ + + + + | 08/26/ | Hospital | [facility] | Scar Gibbons MD | Eosinophilic asthma | | 2019 | Encounter | [facility] | [address] | ([facility]) | | | | Outpatient | [place] [address] | | | | | Procedures 888 | [phone] | | | | | [address] | | | | | | [place] [address] | | | | | | [phone] | | | +--------+ + + + [...] + + + | Blood Pressure | 135/92 | 08/26/2018 10:00 AM PDT | + + + + | Pulse | 73 | 08/26/2018 10:00 AM PDT | + + + + | Temperature | 36.7 C (98 F) | 08/26/2018 10:00 AM PDT | + + + + | Respiratory Rate | 16 | 08/26/2018 10:00 AM PDT | + + + + | Oxygen Saturation | 95% | 08/26/2018 10:00 AM PDT | + + + + [...] | | | | | [place] [address] | | | | | | [phone] | | | | | | | | +--------+ + + + + | 11/18/ | Appointment | | Scar Gibbons MD | | | 2018 | | | [address] | | | | | | [place] [address] | | | | | | [phone] | | | | | | | | +--------+ + + + + | 12/16/ | Appointment | | Scar Gibbons MD | | | 2018 | | | [address] | | | | | | [place] [address] | | | | | | [phone] | | | | | | | | +--------+ + + + + | 01/17/ | Office | Pulmonology | Scar Gibbons MD | | | 2019 | Visit | | [address] | | | | | | [place] [address] | | | | | | [phone] | | | | | | | [...] mg 100 mg, Subcutaneous, | | 9 09:59 | | | | | Once, [facility] 08/26/18 at 1000, For 1 | | PDT | | | | | dose | | | | | | + +--------+ +--------+------+------+ +---+---+ | | | +---+---+ in this encounter"
--- OUTSIDE RECORDS SUMMARY | ~2018-10-01 | XMS | Clinical Summary ---
Demographics + + + | Address | [address] | | | [place] [address] | + + + | Home Phone | | + + + | Preferred Language | Unknown | + + + | Marital Status | | + + + | Shinto Affiliation | 1001 | + + + | Race | Unknown | + + + | Ethnic Group | Unknown | + + + Author + + + | Author | [facility] | | | and [place] | + + + | Organization | [facility] | | | and [place] | + + + | Address | Unknown | + + + | Phone | Unavailable | + + + Support + + + + + | Name | Relationship | Address | Phone | + + + + + | Nunu Meléndez | ECON | [address] | | | K | | [place] | | | | | [address] | | + + + + + | Iain Meléndez | ECON | [address] | | | | | [place] | | | | | [address] | | + + + + + | Sunita Meléndez | SAMIR | Unknown | | + + + + + Care Team Providers + +------+ + | Care District Home Economics Agent Name | Role | Phone | + [...] Lateral Mid (less than 1%), 3+4=11/10 Right [place] | | (17%), Right Lateral Mid (30%)Robotic-assisted [...] [facility] 12[facility] [facility] [address] Abd/Pel w/wo 02/08/02 [facility] | | CT Abd w/o [facility] [...] (less than 1%), | | 3+4=7/10 Right [place] (17%), Right Lateral Mid (30%) | | [...] | | | |CT Abd/Pel w/wo 02/08/02 [facility] | | | |CT Abd w/o 08/08/10 [facility] | | | |CT Chest w/o 11/25/01 [...] [place] | | | | | | [address] | | | | | | | [...] | | 12/02/ | 00-111 | | [id number]: Qty: 2 on | | Knee | ZIMM | | 2018 | 3-140- | | 08/01/2014 by [place] Harris | | | | | | 01 / | | MD [place] | | | | | | /[id number] | | | | | | | | 393 | + +------+--------+ +--------+--------+--------+ | Screw Hex 2.5x25mm - | | Left: | FREEDOM - | | 07/02/ | 42-509 | | [id number]: Qty: 1 on | | Knee | ZIMM | | 2024 | 9-025- | | 08/01/2014 by [place] Harris | | | | | | 25 / | | MD [place]inda | | | | | | /[id number] | | | | | | | | 508 | + +------+--------+ +--------+--------+--------+ | Imp Asf Uc 10mm Ve L 7-12 Gh | | Left: | FREEDOM - | | 05/23/ | 42-512 | | - [id number]: Qty: 1 | | Knee | ZIMM | | 2019 | 2-006- | | on 08/01/2014 by Steven, | | | | | | 10 / | | [place] Seth MD | | | | | | /[id number] | | | | | | | | 193 | + +------+--------+ +--------+--------+--------+ | Imp Knee Ptela Polyeth 38mm - | | Left: | FREEDOM - | | 01/21/ | 42-540 | | [id number]: Qty: 1 | | Knee | ZIMM | | 2021 | 0-000- | | on 08/01/2014 by Steven, | | | | | | 38 / | | [place] Seth MD | | | | | | /[address] | | | | | | | | 366 | + +------+--------+ +--------+--------+--------+ | Imp Knee Tib 5deg Lt Szh - | | Left: | FREEDOM - | | 07/21/ | 42-532 | | [id number]: Qty: 1 on | | Knee | ZIMM | | 2024 | 0-083- | | 08/01/2014 by [place] Harris | | | | | | 01 / | | MD Dorinda | | | | | | /[address] | | | | | | | | 732 | + +------+--------+ +--------+--------+--------+ | Imp Knee Fem Cr Cmt Ccr Sz10 | | Left: | CAP LEY - | | 03/23/ | 42-502 | | L - [id number]: Qty: | | Knee | CAP | | 2023 | 6-068- | | 1 on 08/01/2014 by Steven, | | | | | | 01 / | [place] Seth MD | | | | | | /[address] | | | | | | | | 869 | + +------+--------+ +--------+--------+--------+ | Imp Knee Tot Adilson Sadv - | | Left: | CAP LEY - | | | OK2A / | | [id number]: Qty: 1 on | | Knee | CAP | | | / | | 08/01/2014 by [place] Harris | | | | | | | | E, MD | | | | | | | + +------+--------+ +--------+--------+--------+ | Imp Totjnt Upch Biom Oks - | | Left: | CAP LEY - | | | OKM-43 | | [id number]: Qty: 1 on | | Knee | [...] | [facility] | [facility] | [id number] | 05/04/19 | | | Medica | [...] Person | Self | [birth year] | [address] | | Kuldeep carpio/[place] | | 1941 | [phone] | [place] | | | lu | | | [address] (Home) | [address] | + +--------+ +--------+ + + Advance Directives Patient has advance care planning documents, and code status on file. For more information, please contact:[facility] [place] [address] + + + + + | Code [...]
--- OUTSIDE RECORDS SUMMARY | ~2018-10-01 | XMS | Clinical Summary ---
Demographics + + + | Address | [address] | | | [place] [address] | + + + | Home Phone | | + + + | Preferred Language | Unknown | + + + | Marital Status | | + + + | Bahai Affiliation | 1001 | + + + | Race | Unknown | + + + | Ethnic Group | Unknown | + + + Author + + + | Author | [facility] | + + + | Organization [...] | + + +---------+ + | Iain Sloano | ECON | Unknown | | + + +---------+ + Care Team Providers + +------+ + | Care Health Plan Manager Name | Role | Phone | [...] | | | 2018 | | | DRILLER OPERATOR | | +--------+ + + + + [...] | | | | | [place] [address] | | | | | | [phone] | | | | | | | | +--------+ + + + + | 11/18/ | Appointment | | Scar Gibbons MD | | | 2018 | | | [address] | | | | | | [place] [address] | | | | | | [phone] | | | | | | | | +--------+ + + + + | 12/16/ | Appointment | | Scar Gibbons MD | | | 2018 | | | [address] | | | | | | [place] [address] | | | | | | [phone] | | | | | | | | +--------+ + + + + | 01/17/ | Office | | Scar Gibbons MD | | | 2019 | Visit | | [address] | | | | | | [place] [address] | | | | | | [phone] | | | | | | | [...] + + | [facility] | [address] | [place] [address] | | + + + + + [...] +--------+ +--------+ + + | [place] - JOSEPHINE | MA - | [phone] | Medica | [phone] [address] [address] [place] | | HEALTHCARE | UNITED | | re | [address] | [place] [address] | | | | | | | [...] | Self | [birth year] | Home: | [address] | | [place] | al/[place] | | 1941 | [phone] [place] | | | [place] | | | [phone] | [phone] | + +--------+ +--------+ + +"
--- OUTSIDE RECORDS SUMMARY | ~2018-10-01 | XMS | Encounter Summary ---
Demographics + + + | Address | [address] | | | [place] [address] | + + + | Home Phone | | + + + | Preferred Language | Unknown | + + + | Marital Status | | + + + | Samaritan Affiliation | 1001 | + + + | Race | Unknown | + + + | Ethnic Group | Unknown | + + + Author + + + | Author | [facility] | + + + | Organization [...] Team Providers + +------+ + | Care Connection Worker Name | Role | Phone | + +------+ + | Lucien Alonso MD | PCP | | + +------+ + Encounter Details +--------+ + + + + | Date | Type | Department | Care Team | Description | +--------+ + + + + | 07/13/ | Orders Only | [facility] | Rajwinder Patel, | | | 2018 | | Pulmonology [address] | | | | | [address] | | | | | | [place] | | | | | | [address] | | | | | | [phone] | | | +--------+ + + + [...] | | | | | [place] [address] | | | | | | [phone] | | | | | | | | +--------+ + + + + | 11/18/ | Appointment | | Scar Gibbons MD | | | 2018 | | | [address] | | | | | | [place] [address] | | | | | | [phone] | | | | | | | | +--------+ + + + + | 12/16/ | Appointment | | Scar Gibbons MD | | | 2019 | | | [address] | | | | | | [place] [address] | | | | | | [phone] | | | | | | | | +--------+ + + + + | 01/17/ | Office | Pulmonology | Scar Gibbons MD | | | 2019 | Visit | | [address] | | | | | | [place] [address] | | | | | | [phone] | | | | | | | | +--------+ + + + + as of this encounter Visit Diagnoses Not on filein this encounter"
--- OUTSIDE RECORDS SUMMARY | ~2018-10-01 | XMS | Encounter Summary ---
Demographics + + + | Address | [address] | | | [place] [address] | + + + | Home Phone | | + + + | Preferred Language | Unknown | + + + | Marital Status | | + + + | Zoroastrianism Affiliation | 1001 | + + + | Race | Unknown | + + + | Ethnic Group | Unknown | + + + Author + + + | Author | [employer] | + + + | Organization [...] Team Providers + +------+ + | Care Training And Documentation Specialist Name | Role | Phone | [...] [place] | | | | | (FORMERLY [facility]) | [place] | | | | | Procedures | [place] [address] | [place] | | | | | [place] | Phone: | [address] Phone: | | | | | INJECTION, | [phone] | [phone] | | | | | MEPOLIZUMAB, | Fax: | | | | | | 1MG | [phone] | | + +--------+ + + + + Encounter Details +--------+ + + + + | Date | Type | Department | Care Team | Description | +--------+ + + + + | 08/26/ | Hospital | [facility] | Scar Gibbons MD | Eosinophilic asthma | | 2019 | Encounter | [facility] | [address] | ([facility]) | | | | Outpatient | [place] [address] | | | | | Procedures [address] | [phone] | | | | | [place] [address] | | | | | | [place] [address] | | | | | | [phone] | | | +--------+ + + + [...] | | | | | [place] [address] | | | | | | [phone] | | | | | | | | +--------+ + + + + | 11/18/ | Appointment | | Scar Gibbons MD | | | 2018 | | | [address] | | | | | | [place] [address] | | | | | | [phone] | | | | | | | | +--------+ + + + + | 12/16/ | Appointment | | Scar Gibbons MD | | | 2018 | | | [address] | | | | | | [place] [address] | | | | | | [phone] | | | | | | | | +--------+ + + + + | 01/17/ | Office | Pulmonology | Scar Gibbons MD | | | 2019 | Visit | | [address] | | | | | | [place] [address] | | | | | | [phone] | | | | | | | [...] 09:59 | | | | | Once, [facility] 08/26/18 at 1000, For 1 | | PDT | | | | | dose | | | | | | + +--------+ +--------+------+------+ +---+---+ | | | +---+---+ in this encounter"
--- OUTSIDE RECORDS SUMMARY | ~2018-10-01 | XMS | Encounter Summary ---
Demographics + + + | Address | [address] | | | [place] [address] | + + + | Home Phone | | + + + | Preferred Language | Unknown | + + + | Marital Status | | + + + | Samaritan Affiliation | Unknown | + + + [...] Team Providers + +------+ + | Care Interpreter Name | Role | Phone | + [...] as of this encounter Progress Notes Interface, Commissions Analyst In - 12/01/2004 8:43 AM PDT [id number] [facility] Date: 04/19/2004 Clinic: Otolaryngology [...] Von Montes M.D. Bal Medina M.D. Director, [facility] Batch Dumper of Otolaryngology/Head and Neck Surgery SONDRA / HS [id number] / [id number] / [id number] / [id number] cc: Gianni Muniz M.D. [address] [facility] [place] [address] documented i n this encounter Plan of Treatment Not on filedocumented as of this encounter Visit Diagnoses Not on filedocumented in this encounter"
--- OUTSIDE RECORDS SUMMARY | 2018-10-01 10:44 | XMS ---
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 ERaul VISIT COUNT (12 MO.) 4 [facility] TOTAL 4 NOTE: Visits indicate total known visits. ED/UCC VISIT TRACKING (12 MO.) 10/01/2018 10:42 [facility] [place] TYPE: Emergency COMPLAINT: - RIGHT KNEE PAIN, DIFFICULTY BREATHING 04/29/2018 14:48 [facility] [place] TYPE: Emergency COMPLAINT: - L THUMB LAC DIAGNOSES: - Laceration without foreign body of left thumb without damage to nail, initial encounter - Personal history of malignant neoplasm of prostate - Contact with powered woodworking and forming machines, initial encounter - Other ferry terminal agent (current) drug therapy - Encounter for immunization 02/07/2018 16:50 [facility] [place] TYPE: Emergency COMPLAINT: - URINATION PROBLEM DIAGNOSES: - Retention of urine, unspecified - Other ferry terminal agent (current) drug therapy 02/03/2018 20:36 [facility] [place] TYPE: Emergency COMPLAINT: - CHILLS INPATIENT VISIT TRACKING (12 MO.) 02/04/2018 02:50 [facility] [place] TYPE: Medical Surgical COMPLAINT: - PNEUMONIA DIAGNOSES: - Sepsis due to Pseudomonas - Chronic obstructive pulmonary disease, unspecified - Personal history of malignant neoplasm of prostate - Insomnia, unspecified - Unspecified mood [affective] disorder - Retention of urine, unspecified - Pneumonia due to Streptococcus pneumoniae - Severe sepsis with septic shock [id number]
[2018-10-01] MEDS ORDERED: ALLERGY RELIEF60 MG PO (10:58)
[2018-10-01] MEDS ORDERED: SYMBICORT 16010.2 GM INH (10:58)
[2018-10-01] MEDS ORDERED: PAXIL30 MG PO (10:59)
[2018-10-01] MEDS ORDERED: VENTOLIN HFA18 GM INH (11:01)
[2018-10-01] MEDS ORDERED: OMEPRAZOLE20 MG PO (11:01)
[2018-10-01] MEDS ORDERED: AMOX TR-K CLV1 EAC1 PO (11:01)
[2018-10-01] MEDS ORDERED: RHINOCORT ALL8.43 ML INH (11:02)
[2018-10-01] MEDS ORDERED: DOXYCYCLINE HY100 MG PO (13:25)
[2018-10-01] MEDS ORDERED: PREDNISONE20 MG PO (13:25)
[2018-10-01] MEDS ORDERED: ONDANSETRON ODT8 MG PO (13:25)
== END 2018-10-01 13:32 | disposition home or self-care (01) ==
LOC: ED 10:40
DX: S83.91XA Sprain of unspecified site of right knee, initial encounter (principal); J44.1 Chronic obstructive pulmonary disease with (acute) exacerbation; Z85.46 Personal history of malignant neoplasm of prostate; Z79.899 Other long term (current) drug therapy; X58.XXXA Exposure to other specified factors, initial encounter
CPT/HCPCS: 94640; 99284; J7512

== ENCOUNTER 2021-03-27 16:23 | Emergency (ER) | payer MEDICARE ==
[~2021-03-27] VITALS: Ht 182.9 cm; Wt 87.1 kg
[~2021-03-27 16:23] MED LIST changes: +ALLERGY RELIEF60 MG PO; +AMOX TR-K CLV1 EAC1 PO; +ONDANSETRON ODT8 MG PO; +PAXIL30 MG PO; +RHINOCORT ALL8.43 ML INH; +SYMBICORT 16010.2 GM INH; +VENTOLIN HFA18 GM INH
[2021-03-27] MEDS ORDERED: SULFAMETHOXAZO1 EAC1 PO (16:42)
[2021-03-27] MEDS ORDERED: JUBLIA4 ML TP (16:42)
[2021-03-27] MEDS ORDERED: FLUOROURACIL40 GM TOP (16:43)
[2021-03-27] MEDS ORDERED: DULOXETINE HCL30 MG PO (16:43)
[2021-03-27] MEDS ORDERED: ACYCLOVIR200 MG PO (17:06)
== END 2021-03-27 17:16 | disposition home or self-care (01) ==
LOC: ED 16:23
DX: L01.00 Impetigo, unspecified (principal); L98.9 Disorder of the skin and subcutaneous tissue, unspecified; Z85.46 Personal history of malignant neoplasm of prostate; Z79.899 Other long term (current) drug therapy
CPT/HCPCS: 99282

== ENCOUNTER 2021-06-19 16:34 | Emergency (ER) | payer MEDICARE ==
[~2021-06-19] VITALS: Ht 182.9 cm; Wt 84.2 kg
[~2021-06-19 16:34] MED LIST changes: +ACYCLOVIR200 MG PO; +DULOXETINE HCL30 MG PO; +FLUOROURACIL40 GM TOP; +JUBLIA4 ML TP; +SULFAMETHOXAZO1 EAC1 PO
[2021-06-19] MEDS ORDERED: PREDNISONE20 MG PO (18:45)
[2021-06-19] MEDS ORDERED: IPRAT-ALBUT 0.5-3 ML INH (18:45)
== END 2021-06-19 19:30 | disposition home or self-care (01) ==
LOC: ED 16:34
DX: J45.901 Unspecified asthma with (acute) exacerbation (principal); Z20.822 Contact with and (suspected) exposure to COVID-19; Z85.46 Personal history of malignant neoplasm of prostate; Z88.5 Allergy status to narcotic agent; Z79.899 Other long term (current) drug therapy
CPT/HCPCS: 36415; 71045; 80048; 83880; 85025; 94640; 96374; 99285-25; C9803; J2930; U0003

== ENCOUNTER 2023-10-27 05:55 | Day surgery (SDC) | payer MEDICARE ==
--- NOTE | 2023-09-17 09:28 | NUR ---
PT ARRIVED FOR PRE-ADMIT TODAY AND WAS SEEN IN THE ED YESTERDAY 09-16-23 FOR A RESPORTARY ISSUES. HE WAS GIVEN ABX'S . PT HAS STUFFEY NOSE, COUGH AND GENERALIZED DOES NOT FEEL GOOD. EXPLAINED THAT WE WILL CANCLE HIS CASE TODAY FOR THE 09/22/23 AND MOST LIKLEY HAVE TO WAIT AT LEAST 30 DAYS ONCE HE IS BETTER. EXPLAINED THAT HE NEEDED TO TALK WITH DR RÍOS'S OFFICE ABOUT THIS TODAY. ALSO NOTIFIED CHARGE NURSE
[~2023-10-27] VITALS: Ht 180.3 cm; Wt 77.6 kg
--- NOTE | ~2023-10-27 | OR ---
[facility] [address] [place], [place] [address] Draft DATE OF OPERATION: 10/27/2023 SURGEON: Josee Ríos MD PREOPERATIVE DIAGNOSIS: Incarcerated umbilical hernia. POSTOPERATIVE DIAGNOSIS: Incarcerated umbilical hernia with omentum; fascial defect, 1.5 cm. PROCEDURE: Repair of incarcerated umbilical hernia, fascial defect, less than 2 cm. ANESTHESIA: General endotracheal; Hugo Werner CRNA and local 10 mL of 0.25% Marcaine with epinephrine. INDICATIONS: This 83-year-old white man is a patient of Dr. White and has had a rather prominent bulge at the umbilicus. The bulge itself measures approximately 6 cm and is nonreducible and consistent with fat rather than hollow viscus. The patient has had this for quite some time. He does have episodic cough and other issues that may have contributed to the hernia as well as protrusion of intra-abdominal viscera. Most likely this represents omentum or properitoneal fat otherwise. He is admitted at this time to undergo repair. He understands the risk of bleeding, infection, recurrence and so on. FINDINGS: The fascial defect was only 1.5 cm. The protruding viscus was omentum. The hernia sac was excised. Primary closure of the fascial defect was appropriate rather than implantation of mesh given the small size of the defect and the sherman nature of the fascia itself. DESCRIPTION OF PROCEDURE: The patient was brought to the operating room, given a general endotracheal anesthetic. Preoperative antibiotic Ancef was given. Sequential compression device stockings used and heparin subcutaneously administered. The abdomen was clipped and prepared with chlorhexidine solution and draped sterilely. The bulky umbilical hernia measured approximately 4-6 cm. Various manipulations did not reduce it particularly. A curvilinear incision was made to the left of the umbilical skin fold. Dissection was carried through the dermis with sharp and electrocautery dissection. With blunt PATIENT NAME: RUPERTO SOLANO OPERATIVE REPORT DATE OF : 42 REPORT #: [id number] PHYSICIAN: JOSEE RÍOS MD PCP: JA WHITE MD REPORT IS CONFIDENTIAL AND NOT TO BE RELEASED WITHOUT AUTHORIZATION [facility] [address] [place], [place] [address] Draft dissection, the underlying herniated tissue was freed from the overlying dermis of the umbilical skin. Circumferential freeing of the fatty tissue was undertaken down to the fascial defect, which was surprisingly small, actually measured at 1.5 cm. The hernia sac incorporating the fatty tissue was incised and passed for Pathology revealing herniated omentum. This was replaced into the abdominal cavity. There was a small amount of bleeding, which was secured with electrocautery. The fascial defect was measured at only 1.5 cm. Given its small size, implantation of mesh was deemed unnecessary. The fascia itself was quite sherman and healthy. The fascia was reapproximated transversely with interrupted 0-Prolene suture in interrupted configuration and a horizontal mattress in the central portion. A 10 mL of 0.25% Marcaine with epinephrine injected locally. The Te's layer was reapproximated with interrupted 3-0 Vicryl and skin closed with interrupted 2-0 Vicryl in deep dermal layer. Steri-Strips were applied as was an Acticoat dressing. The patient was ultimately extubated and transported to the recovery room in good condition, having suffered no complications. Sponge, needle, and instrument counts reported as correct x3. MD SHARATH Tello/CORA /[id number] Copies: ~ PATIENT NAME: RUPERTO SOLANO OPERATIVE REPORT DATE OF : 42 REPORT #: [id number] PHYSICIAN: JOSEE RÍOS MD PCP: JA WHITE MD REPORT IS CONFIDENTIAL AND NOT TO BE RELEASED WITHOUT AUTHORIZATION
[~2023-10-27 05:55] MED LIST changes: +GABAPENTIN400 MG PO; +IPRAT-ALBUT 0.5-3 ML INH; +LACTATED RINGER'S 1,000 ML IV SCH; +NEURONTIN400 MG PO; +VENTOLIN HFA18 GM; +ZITHROMAX250 MG PO
[2023-10-27 06:22] VITALS: BP 124/68
[2023-10-27] MEDS ORDERED: DUPIXENT P300 MG/2 M SQ (06:26)
[2023-10-27] MEDS ORDERED: TRAZODONE HCL50 MG PO (06:26)
[2023-10-27 06:36] LABS: BASOPHILS 0.4 % (0-2); EOSINOPHILS 6.2 % (0-6); HEMATOCRIT 35.7 % (35.0-50.0); HEMOGLOBIN 11.7 g/dL (12.0-18.0); LYMPHOCYTES 27.8 % (24-44); MCH 30.8 (27-36); MCHC 32.8 g/dl (30-36); MCV 94.1 fl (81-99); MONOCYTES 9.6 % (0-12); PLATELET COUNT 265 K/uL (140-440); RBC 3.79 M/ul (4.3-5.7); RDW 14.3 (10.5-15.0)
[2023-10-27 06:51] LABS: ALBUMIN 3.7 g/dL (3.4-5.0); ALBUMIN/GLOBULIN RATIO 0.74 (1.1-2.4); ANION GAP 13.6 (7-21); BILIRUBIN, TOTAL 0.9 ng/dL (0.2-1.0); BUN/CREATININE RATIO 18.58 (6.0-28.6); CALCIUM 9.1 mg/dL (8.5-10.1); CREATININE, SERUM 1.13 mg/dL (0.70-1.30); POTASSIUM 3.6 mmol/L (3.5-5.1); PROTEIN, TOTAL 8.7 g/dL (6.4-8.2)
[2023-10-27] MEDS ORDERED: BUPIVACAINE HCL 0.25% 50 ML MDV ONE (06:51)
[2023-10-27] MEDS ORDERED: CEFAZOLIN SODIUM 2 GM/20 ML SYR IV SCH (07:00)
[2023-10-27] MEDS ORDERED: IBLOOD GLUCOSE TEST STRIP 1 EA TEST VI PRN (07:00)
[2023-10-27] MEDS ORDERED: HEParin SOD (PORCINE) 5,000 UNIT/0.5 ML SYR SUB-Q SCH (07:00)
[2023-10-27] MEDS ORDERED: LIDOCAINE HCL 1% 5 ML SDV INJ ONE (07:00)
[2023-10-27] MEDS ORDERED: DEXAMETHASONE SOD PHOS 4 MG/ML VIAL ONE (07:16)
[2023-10-27] MEDS ORDERED: KETOROLAC TROMETHAMINE 30 MG/ML VIAL ONE (07:16)
[2023-10-27] MEDS ORDERED: propofoL 200 MG/20 ML VIAL ONE (07:16)
[2023-10-27] MEDS ORDERED: SUGAMMADEX SODIUM 200 MG/2 ML ML ONE (07:16)
[2023-10-27] MEDS ORDERED: ROCURONIUM BROMIDE 50 MG/5 ML SYR ONE (07:16)
[2023-10-27] MEDS ORDERED: ACETAMINOPHEN 1,000 MG/100 ML VIAL ONE (07:16)
[2023-10-27] MEDS ORDERED: LIDOCAINE HCL 2% 5 ML SDV ONE (07:16)
[2023-10-27] MEDS ORDERED: fentaNYL citrate 100 MCG/2 ML VIAL ONE (07:16)
[2023-10-27] MEDS ORDERED: ondansetron HCL 4 MG/2 ML VIAL ONE (07:16)
[2023-10-27] MEDS ORDERED: LIDOCAINE HCL 2% 20 MG/ML VIAL INJ ONE (07:17)
[2023-10-27] MEDS ORDERED: MAGNESIUM SULFATE 1 GM/2 ML VIAL ONE (07:17)
[2023-10-27] MEDS ORDERED: ePHEDrine sulfate 50 MG/ML AMP ONE (08:10)
[2023-10-27] MEDS ORDERED: VASOPRESSIN 20 UNITS/ML VIAL ONE (08:34)
--- NOTE | 2023-10-27 08:55 | NUR ---
10/27/23 0855 Cari Marcus 0845-PATIENT ARRIVED TO PACU ON 6L MASK RR EVEN. ORAL AIRWAY IN PLACE. PATIENT REACTIVE EYES CLOSED REACHING HAND TO MOUTH ORAL AIRWAY REMOVED BY BASKET HAND WEAVER. NOT FOLLOWING COMMANDS. PATIENT HAS STOP BANG SCORE OF 3. PATIENT WILL THEN GO APNEIC AND RN DOES JAW THRUST. PATIENT DOES HAVE RESTLESS LEGS. DRESSING TO UMBILICUS CDI. IVF INFUSING. SR. 0853-PATIENT SLEEPING SNORING MOVES ALL EXTREMITIES RAISING HANDS ABOVE HEAD RESTING ON PILLOW. 6L MASK RR EVEN PATIENT IS REACTIVE OCCASIONAL APNEA. 99%
[2023-10-27] MEDS ORDERED: NALOXONE HCL 0.4 MG SYR IV PRN (09:00)
[2023-10-27] MEDS ORDERED: IBUPROFEN 600 MG TAB PO PRN (09:00)
[2023-10-27] MEDS ORDERED: ACETAMINOPHEN 500 MG TAB PO PRN (09:00)
[2023-10-27] MEDS ORDERED: OXYCODONE/APAP 7.5/325 TAB PO PRN (09:00)
[2023-10-27] MEDS ORDERED: LACTATED RINGER'S 1,000 ML IV SCH (09:00)
[2023-10-27] MEDS ORDERED: IBUPROFEN600 MG PO (09:06)
[2023-10-27] MEDS ORDERED: OXYCODON-ACETA1 EAC2 PO (09:06)
[2023-10-27] MEDS ORDERED: ACETAMINOPHEN500 MG PO (09:06)
--- NOTE | 2023-10-27 09:30 | NUR ---
PT ARRIVES TO DS DEPT FROM PACU VIA STRETCHER. PT IS A&O W/2L OF O2 IN PLACE VIA NC. RESPIRATIONS ARE EVEN AND UNLABORED, NO SIGNS OF DISTRESS. PT IS ASKING QUESTIONS APPROPRIATELY. DRESSING VISUALIZED W/JHONATAN RN, SMALL AMOUNT OF SS DRAINAGE. PT REPORTS PAIN 0/10 AT THIS TIME, AND NO NAUSEA PRESENT. PT TOLERATING ICE WATER WITHOUT DIFFICULTY SWALLOWING. CALL LIGHT WITHIN REACH, PT REPORTS NO FURTHER NEEDS AT THIS TIME. PT HAS DIAPER IN PLACE D/T INCONTINENCE.
[2023-10-27 09:31] VITALS: BP 122/66
--- NOTE | 2023-10-27 10:20 | NUR ---
IN PT ROOM FOR VS AND ASSESSMENT. PT HAS SMALL AMOUNT OF SS DRAINAGE AND REPORTS NO CHANGE IN PAIN AT THIS TIME. PT TITRATED TO RA, O2 >90%. PT EDUCATED ABOUT SLEEP STUDY D/T UNTREATED SLEEP APNEA, PT STATES VERBAL UNDERSTANDING. PT TOLERATING PUDDING W/OUT DIFFICULTY SWALLOWING AT THIS TIME. HOB INCREASED FOR EASE OF SWALLOWING. AT BEDSIDE. CALL LIGHT WITHIN REACH, NO FURTHER NEEDS AT THIS TIME.
[2023-10-27 10:24] VITALS: BP 113/59
--- NOTE | 2023-10-27 10:50 | NUR ---
IN PT ROOM TO HAVE PT STAND UP AND ATTEMPT WALKING. PT SITS AT BEDSIDE AND DOES NOT REPORT ANY DIZZINESS OR NAUSEA AT THIS TIME. PT STANDS AT BEDSIDE AND REPORTS NO DIZZINESS OR NAUSEA AT THIS TIME. PT NOW GETTING DRESSED W/ IN ROOM FOR ASSISTANCE. CALL LIGHT WITHIN REACH.
--- NOTE | 2023-10-27 11:00 | NUR ---
IN PT ROOM FOR DISCHARGE EDUCATION. PT AND PT LISTEN ATTENTIVELY AND REPORT NO FURTHER QUESTIONS AT THIS TIME. PT AND PT STATE VERBAL UNDERSTANDING. IV DC'ED, WNL, GAUZE/COBAN IN PLACE. PT OFF OF UNIT VIA WC TO PASSENGER SIDE OF 'S VEHICLE. PT AND PT STATE NO FURTHER NEEDS AT THIS TIME. ALL BELONGINGS IN PT POSSESSION. FRESH ICE WATER PROVIDED.
--- NOTE | 2023-10-27 14:46 | EKG ---
[facility] [address] [facility] [address] [place], [place] [address] Signed Normal sinus rhythm Normal ECG No previous ECGs available Confirmed by Howard Arora ([id number]) on 10/27/2023 2:45:48 PM Electronically Signed By: HOWARD ARORA MD 10/27/23 1446 PATIENT NAME: RUPERTO SLOANO Electrocardiogram DATE OF : 42 PHYSICIAN: HOWARD ARORA MD REPORT #: [id number] REPORT IS CONFIDENTIAL AND NOT TO BE RELEASED WITHOUT AUTHORIZATION
== END 2023-10-27 11:10 | disposition home or self-care (01) ==
LOC: DS 05:55
PROVIDERS: ATTEND Surgery
PROC: 0WQF0ZZ Repair Abdominal Wall, Open Approach (ICD-10-PCS; principal; 2023-10-27 07:30)
DX: K42.0 Umbilical hernia with obstruction, without gangrene (principal); G47.30 Sleep apnea, unspecified; J45.909 Unspecified asthma, uncomplicated; Z90.79 Acquired absence of other genital organ(s)
CPT/HCPCS: 36415; 80053; 85025; 93005; 93010; J0131; J0690; J1100; J1644; J1885; J2001; J2405; J2704; J3010; J3475; J3490; J7121